=== PATIENT | male | born 1955 | race African-American/Black ===

== ENCOUNTER 2017-01-22 01:53 | Emergency (ER) | payer MEDICARE, OTHER ==
[~2017-01-22] VITALS: Ht 154.9 cm; Wt 70.3 kg
[~2017-01-22 01:53] MED LIST: ACETAMINOPHEN325 M1 PO; ALDACTONE25 MG PO; ALLOPURINOL100 MG PO; ASPIRIN EC81 MG PO; CARVEDILOL3.125 MG PO; CLARITIN10 M2 PO; COLACE100 MG PO; CYCLOBENZAPRINE10 MG PO; DAILY VITE1 EACH PO; DUCODYL5 MG PO; FUROSEMIDE20 MG PO; FUROSEMIDE40 MG PO; GAS RELIEF80 MG PO; GLIMEPIRIDE1 MG PO; IBUPROFEN600 MG PO; LACRI-LUBE S.O3.5 GM OP; LANOXIN125 MCG PO; LEVOXYL100 MCG PO; LOVASTATIN20 MG PO; LUBRIFRESH PM3.5 GM OPTH; METFORMIN HCL1000 MG PO; MILK OF MA400 MG/5 M PO; NASONEX17 GM NS; NIASPAN500 MG PO; NORCO 5-325 TA1 EACH PO; OMEPRAZOLE20 MG PO; PATADAY2.5 ML OPTH; REGULOID426 GM PO; STOOL SOFTENER100 M1 PO; TRAMADOL HCL50 MG PO; VITAMIN A10000 UNIT PO; VITAMIN D1000 UNI1 PO; VITAMIN D5000 UNIT PO; ZESTRIL5 MG PO
[2017-01-22] MEDS ORDERED: LASIX40 MG PO (02:07)
[2017-01-22] MEDS ORDERED: PRINIVIL10 MG PO (02:07)
[2017-01-22] MEDS ORDERED: MIRALAX17 GM PO (02:08)
[2017-01-22] MEDS ORDERED: [UNRECOGNIZED DRUG - OTHER] TOP (10:43)
[2017-01-22] MEDS ORDERED: LUBRIFRESH PM3.5 GM OPTH (10:47)
== END 2017-01-22 02:24 | disposition home or self-care (01) ==
LOC: ED 01:53
DX: S00.83XA Contusion of other part of head, initial encounter (principal); E11.9 Type 2 diabetes mellitus without complications; I11.0 Hypertensive heart disease with heart failure; I50.9 Heart failure, unspecified; E78.5 Hyperlipidemia, unspecified; W01.198A Fall on same level from slipping, tripping and stumbling with subsequent striking against other object, initial encounter; Z95.0 Presence of cardiac pacemaker; Z88.8 Allergy status to other drugs, medicaments and biological substances; Z79.899 Other long term (current) drug therapy; Z79.82 Long term (current) use of aspirin; Z79.84 Long term (current) use of oral hypoglycemic drugs
CPT/HCPCS: 99282

== ENCOUNTER 2017-01-22 09:41 | Emergency (ER) | payer MEDICARE, OTHER ==
[~2017-01-22] VITALS: Ht 154.9 cm; Wt 70.3 kg
[~2017-01-22 09:41] MED LIST changes: +LASIX40 MG PO; +MIRALAX17 GM PO; +PRINIVIL10 MG PO
[2017-01-22] MEDS ORDERED: [UNRECOGNIZED DRUG - OTHER] TOP (10:43)
[2017-01-22] MEDS ORDERED: LUBRIFRESH PM3.5 GM OPTH (10:47)
--- NOTE | 2017-01-22 18:00 | EKG ---
[facility] [address] [place] [address] Signed Normal sinus rhythm Left anterior fascicular block Nonspecific T wave abnormality Abnormal ECG No previous ECGs available Confirmed by SUSAN SHAH MD ([id number]) on 01/22/2017 6:00:13 PM Electronically Signed By: SUSAN SHAH MD 01/22/17 1800 PATIENT NAME: SHAWN MAIN KAITY Electrocardiogram DATE OF : 59 PHYSICIAN: SUSAN SHAH MD REPORT #: [id number] REPORT IS CONFIDENTIAL AND NOT TO BE RELEASED WITHOUT AUTHORIZATION
== END 2017-01-22 11:27 | disposition home or self-care (01) ==
LOC: ED 09:41
DX: R07.89 Other chest pain (principal); E11.9 Type 2 diabetes mellitus without complications; I11.0 Hypertensive heart disease with heart failure; I50.9 Heart failure, unspecified; E66.9 Obesity, unspecified; F43.10 Post-traumatic stress disorder, unspecified; E03.9 Hypothyroidism, unspecified; Z95.0 Presence of cardiac pacemaker; Z88.8 Allergy status to other drugs, medicaments and biological substances; Z79.899 Other long term (current) drug therapy; Z79.82 Long term (current) use of aspirin; Z79.84 Long term (current) use of oral hypoglycemic drugs
CPT/HCPCS: 80053; 84484; 85025; 93005; 93010; 99284

== ENCOUNTER 2017-01-26 14:47 | Emergency (ER) | payer MEDICARE, OTHER ==
[~2017-01-26] VITALS: Ht 154.9 cm; Wt 70.3 kg
[~2017-01-26 14:47] MED LIST changes: +[UNRECOGNIZED DRUG - OTHER] TOP
== END 2017-01-26 15:30 | disposition home or self-care (01) ==
LOC: ED 14:47
DX: S50.01XA Contusion of right elbow, initial encounter (principal); E11.40 Type 2 diabetes mellitus with diabetic neuropathy, unspecified; Q90.9 Down syndrome, unspecified; I11.0 Hypertensive heart disease with heart failure; I50.9 Heart failure, unspecified; E78.5 Hyperlipidemia, unspecified; H54.0 Blindness, both eyes; D56.9 Thalassemia, unspecified; Z88.8 Allergy status to other drugs, medicaments and biological substances; Z79.899 Other long term (current) drug therapy; Z79.82 Long term (current) use of aspirin; Z79.84 Long term (current) use of oral hypoglycemic drugs; W19.XXXA Unspecified fall, initial encounter
CPT/HCPCS: 73080; 73090; 99283

== ENCOUNTER 2017-01-29 10:43 | Emergency (ER) | payer MEDICARE, OTHER ==
[~2017-01-29] VITALS: Ht 154.9 cm; Wt 70.3 kg
== END 2017-01-29 12:35 | disposition home or self-care (01) ==
LOC: ED 10:43
DX: R60.9 Edema, unspecified (principal); I11.0 Hypertensive heart disease with heart failure; I50.9 Heart failure, unspecified; E78.5 Hyperlipidemia, unspecified; E66.9 Obesity, unspecified; E03.9 Hypothyroidism, unspecified; E11.40 Type 2 diabetes mellitus with diabetic neuropathy, unspecified; Z88.8 Allergy status to other drugs, medicaments and biological substances; Z79.899 Other long term (current) drug therapy; Z79.82 Long term (current) use of aspirin; Z79.84 Long term (current) use of oral hypoglycemic drugs
CPT/HCPCS: 73060; 85025; 93971; 99284

== ENCOUNTER 2017-08-20 19:47 | Emergency (ER) | payer MEDICARE, OTHER ==
[~2017-08-20] VITALS: Ht 154.9 cm; Wt 70.3 kg
--- OUTSIDE RECORDS SUMMARY | 2017-08-20 20:04 | XMS | Clinical Summary ---
Demographics + + + | Address | [address] [place] [address] [place] | | | [place] [address] | + + + | Home Phone | | + + + | Preferred Language | Unknown | + + + | Marital Status | Single | + + + | Zoroastrian Affiliation | NON | + + + | Race | Black or | + + + | Ethnic Group | Not or | + + + Author + + + | Author | [facility] | + + + | Organization | [facility] | + + + | Address | Unknown | + + + | Phone | Unavailable | + + + Support + + + + + | Name | Relationship | Address | Phone | + + + + + | JEREMIASEASTERN | ECON | [address] | | | [place] | | [place] | | | | | [address] | | + + + + + Care Team Providers + +------+ + | Care Oil Filters Inspector Name | Role | Phone | + +------+ + | Moon Alarcon DO | PP | | + +------+ + Source Comments SON is fully live on both EpicCare Ambulatory and EpicCare InPatient.[facility] Allergies + + + + + + | Active Allergy | Reactions | Severity | Noted | Comments | | | | | Date | | + + + + + + | Carbamazepine | Unknown | | 11/22/19 | | | | | | 16 | | + + + + + + Current Medications + + + +---------+------+------+-------+ | Prescription | Sig. | Disp. | Refills | Star | End | Statu | | | | | | t | Date | s | | | | | | Date | | | + + + +---------+------+------+-------+ | CALCIUM + D OR | two tablets twice | | | | | Activ | | | daily | | | | | e | + + + +---------+------+------+-------+ | LEVOTHYROXINE 200 | one tab daily | | | | | Activ | | MCG TAB | | | | | | e | + + + +---------+------+------+-------+ | METFORMIN 1,000 MG | take 1 tablet | | | | | Activ | | TAB | (1,000mg) by oral | | | | | e | | | route 2 times per | | | | | | | | day with morning and | | | | | | | | evening meals | | | | | | + + + +---------+------+------+-------+ | ASPIRIN 81 MG TAB | one tab daily | | | | | Activ | | | | | | | | e | + + + +---------+------+------+-------+ | allopurinol 100 mg | | | | 04/2 | | Activ | | oral tablet | | | | 8/20 | | e | | | | | | 16 | | | + + + +---------+------+------+-------+ | carvedilol 3.125 | | | | 04/2 | | Activ | | mg oral tablet | | | | 8/20 | | e | | | | | | 16 | | | + + + +---------+------+------+-------+ | furosemide 40 mg | | | | 04/2 | | Activ | | oral tablet | | | | 8/20 | | e | | | | | | 16 | | | + + + +---------+------+------+-------+ | lisinopril 5 mg | | | | 04/2 | | Activ | | oral tablet | | | | 8/20 | | e | | | | | | 16 | | | + + + +---------+------+------+-------+ | lovastatin 20 mg | | | | 04/2 | | Activ | | oral tablet | | | | 8/20 | | e | | | | | | 16 | | | + + + +---------+------+------+-------+ | omeprazole 20 mg | | | | 04/2 | | Activ | | oral capsule,delayed | | | | 8/20 | | e | | release(DR/EC) | | | | 16 | | | + + + +---------+------+------+-------+ | spironolactone 25 | | | | 04/2 | | Activ | | mg oral tablet | | | | 8/20 | | e | | | | | | 16 | | | + + + +---------+------+------+-------+ | white | twice daily as | | | | | Activ | | petrolatum-mineral | needed. | | | | | e | | oil 83-15 % | | | | | | | | ophthalmic ointment | | | | | | | + + + +---------+------+------+-------+ | olopatadine | Instill 1 drop into | 2.5 mL | 6 | 01/0 | | Activ | | (PATADAY) 0.2 % | both eyes once | | | 5/20 | | e | | ophthalmic (eye) | daily. Indications: | | | 18 | | | | dropsIndications: | Allergic | | | | | | | Allergic | Conjunctivitis | | | | | | | Conjunctivitis | | | | | | | + + + +---------+------+------+-------+ Active Problems + + + | Problem | Noted Date | + + + | Corneal scar | 11/22/2015 | + + + | Atrioventricular canal type ventricular septal defect | 09/10/2006 | + + + | Congenital anomaly of heart | 09/10/2006 | + + + Encounters +--------+--------+ + + + | Date | Type | Specialty | Care Team | Description | +--------+--------+ + + + | 07/04/ | Refill | | Jefe Suarez, | Refill Request | | 2018 | | | MD | | +--------+--------+ + + + from Last 3 Months Social History + +-------+ +--------+------+ | Tobacco Use | Types | Packs/Day | Years | Date | | | | | Used | | + +-------+ +--------+------+ | Never Smoker | | | | | + +-------+ +--------+------+ + + + | Sex Assigned at | Date Recorded | | | | + + + | Not on file | | + + + Last Filed Vital Signs + + + + | Vital Sign | Reading | Time Taken | + + + + | Blood Pressure | 106/76 | 09/09/2006 12:59 PM PDT | + + + + | Pulse | 93 | 09/09/2006 12:59 PM PDT | + + + + | Temperature | - | - | + + + + | Respiratory Rate | - | - | + + + + | Oxygen Saturation | 96% | 09/09/2006 12:59 PM PDT | + + + + | Inhaled Oxygen | - | - | | Concentration | | | + + + + | Weight | 75.3 kg (166 lb) | 09/09/2006 12:59 PM PDT | + + + + | Height | 152.4 cm (5') | 09/09/2006 12:59 PM PDT | + + + + | Body Mass Index | 32.42 | 09/09/2006 12:59 PM PDT | + + + + Plan of Treatment + + + + + | Health Maintenance | Due Date | Last Done | Comments | + + + + + | INFLUENZA VACCINE | | | | | (FLU SHOT) | 7 | | | + + + + + Results Not on filefrom Last 3 Months"
--- OUTSIDE RECORDS SUMMARY | 2017-08-20 20:05 | XMS | Encounter Summary ---
Demographics + + + | Address | [address] [place] [address] [place] | | | [place] [address] | + + + | Home Phone | | + + + | Preferred Language | Unknown | + + + | Marital Status | Single | + + + | Uatsdin Affiliation | NON | + + + | Race | Black or | + + + | Ethnic Group | Not or | + + + Author + + + | Author | [facility] | + + + | Organization | [facility] | + + + | Address | Unknown | + + + | Phone | Unavailable | + + + Support + + + + + | Name | Relationship | Address | Phone | + + + + + | JAAN MCDOWELL | ECON | [address] | | | [place] | | [place] | | | | | [address] | | + + + + + Care Team Providers + +------+ + | Care Talent Acquisition Project Manager Name | Role | Phone | + +------+ + | Moon Alarcon DO | PCP | | + +------+ + Reason for Visit + + + | Reason | Comments | + + + | Refill Request | | + + + Encounter Details +--------+--------+ + + + | Date | Type | Department | Care Team | Description | +--------+--------+ + + + | 07/04/ | Refill | [facility] | Jefe Suarez, | Refill Request | | 2017 | | Dema/Ophthalmol | [address] | | | | | ogy at [facility] [address] | [address] | | | | | [place] Mailcode: | [place], [place] | | | | | [address] | [address] | | | | | Health and Healing, | [phone] | | | | | [address] Floor | | | | | | [place], [place] | | | | | | [address] | | | | | | [phone] | | | +--------+--------+ + + + Social History + +-------+ +--------+------+ | Tobacco [...] on file | | + + + as of this encounter Plan of Treatment Not on fileas of this encounter Visit Diagnoses Not on filein this encounter"
--- OUTSIDE RECORDS SUMMARY | 2017-08-20 20:05 | XMS | Encounter Summary ---
Demographics + + + | Address | [address] [place] [address] [place] | | | [place] [address] | + + + | Home Phone | | + + + | Preferred Language | Unknown | + + + | Marital Status | Single | + + + | Roman Catholic Affiliation | NON | + + + | Race | Black or | + + + | Ethnic Group | Not or | + + + Author + + + | Author | [facility] | + + + | Organization | [facility] | + + + | Address | Unknown | + + + | Phone | Unavailable | + + + Support + + + + + | Name | Relationship | Address | Phone | + + + + + | JANA MCDOWELL | ECON | [address] | | | [place] | | [place] | | | | | [address] | | + + + + + Care Team Providers + +------+ + | Care Record Producer Name | Role | Phone | + [...] Refill Request | | 2017 | | Retsof/Ophthalmol | [address] | | | | | ogy at [facility] [address] | [address] | | | | | [place] Mailcode: | [place], [place] | | | | | [address] | [address] | | | | | Health and Healing, | [phone] | | | | | [address] Floor | | | | | | [place], [place] | | | | | | [address] | | | | | | [phone] | | | +--------+--------+ + + + [...]
--- OUTSIDE RECORDS SUMMARY | 2017-08-20 20:05 | XMS | Clinical Summary ---
Demographics + + + | Address | [address] [place] [address] [place] | | | [place] [address] | + + + | Home Phone | | + + + | Preferred Language | Unknown | + + + | Marital Status | Single | + + + | Latter-Day Affiliation | NON | + + + [...] + + | JEREMIASEASTERN | ECON | [address] | | | [place] | | [place] | | | | | [address] | | + + + + + Care Team Providers + +------+ + | Care Medical Billing Representative Name | Role | Phone | + +------+ + | Moon Alarcon DO | PP | | + +------+ + Source Comments SON is fully live on both EpicCare Ambulatory and EpicCare InPatient.[facility] Allergies + + + + + + [...]
[2017-08-20] MEDS ORDERED: ZITHROMAX250 MG PO (21:01)
== END 2017-08-20 21:07 | disposition home or self-care (01) ==
LOC: ED 19:47
DX: R05 Cough (principal); R91.8 Other nonspecific abnormal finding of lung field; E11.40 Type 2 diabetes mellitus with diabetic neuropathy, unspecified; I11.0 Hypertensive heart disease with heart failure; I50.9 Heart failure, unspecified; E78.5 Hyperlipidemia, unspecified; E66.9 Obesity, unspecified; F43.10 Post-traumatic stress disorder, unspecified; E03.9 Hypothyroidism, unspecified; Z88.8 Allergy status to other drugs, medicaments and biological substances; Z79.899 Other long term (current) drug therapy; Z79.82 Long term (current) use of aspirin; Z79.84 Long term (current) use of oral hypoglycemic drugs
CPT/HCPCS: 71046; 99283

== ENCOUNTER 2018-03-30 07:21 | Emergency (ER) | payer MEDICARE, OTHER ==
[~2018-03-30] VITALS: Ht 154.9 cm; Wt 70.3 kg
--- OUTSIDE RECORDS SUMMARY | ~2018-03-30 | XMS | Clinical Summary ---
Demographics + + + | Address | [address] [place] [address] [place] | | | [place] [address] | + + + | Home Phone | | + + + | Preferred Language | Unknown | + + + | Marital Status | Single | + + + | Restorationist Affiliation | NON | + + + [...] + + | JEREMIASEASTERN | ECON | [address] | | | [place] | | [place] | | | | | [address] | | + + + + + Care Team Providers + +------+ + | Care Machine Cloth Measurer Name | Role | Phone | + +------+ + | Moon Alarcon DO | PP | | + +------+ + Source Comments SON is fully live on both EpicCare Ambulatory and EpicCare InPatient.[facility] Allergies + + + + + + [...] | | | | (FLU SHOT) | 8 | | | + + [...] | | | + +--------+ +--------+-------+---------+ | POLICE RESERVES COMMANDER MEDICAID | POLICE RESERVES COMMANDER | xxxxxxxx | Medica | | | [...] [place] | | | al/Fam | | [phone] | [phone] | [place] | | | [place] | | | [phone] | [phone] | + +--------+ +--------+ + +"
--- OUTSIDE RECORDS SUMMARY | ~2018-03-30 | XMS | Clinical Summary ---
Demographics + + + | Address | [address] [place] [address] [place] | | | [place] [address] | + + + | Home Phone | | + + + | Preferred Language | Unknown | + + + | Marital Status | Single | + + + | Taoism Affiliation | NON | + + + [...] + + | JEREMIASEASTERN | ECON | [address] | | | [place] | | [place] | | | | | [address] | | + + + + + Care Team Providers + +------+ + | Care Front End Alignment Specialist Name | Role | Phone | + +------+ + | Moon Alarcon DO | PP | | + +------+ + Source Comments SON is fully live on both EpicCare Ambulatory and EpicCare InPatient.[facility] Allergies + + + + + [...] | | | + +--------+ +--------+-------+---------+ | AUDIO VIDEO TECH MEDICAID | AUDIO VIDEO TECH | xxxxxxxx | Medica | | | [...] | [place] | | | [phone] | [phone] | + +--------+ +--------+ + +"
--- OUTSIDE RECORDS SUMMARY | ~2018-03-30 | XMS | Clinical Summary ---
Demographics + + + | Address | [address] | | | [place] [address] | + + + | Home Phone | | + + + | Preferred Language | Unknown | + + + | Marital Status | Single | + + + | Christian Affiliation | Unknown | + + + | Race | Unknown | + + + | Ethnic Group | Unknown | + + + Author + + + | Author | [facility] [employer] | + + + | Organization | [facility] [employer] | + + + | Address [...] Team Providers + +------+ + | Care Plan Consultant Name | Role | Phone | + [...] history of Down syndrome, resident of a mcc, history of | | congenital heart disease, [...] | | | | | (#1) | 8 | | | + [...] | [place] - PREMIERCARE | MA-FAM | [id number] | Medica | | | | FAMILY | LAZ | | re | | | | | CARE | | | | | + +--------+ +--------+-------+ + | MEDICAID | [facility] | [id number] | | | [address] | | | N | | | | [place], [place] | | | [place] | | | | [address] | | | SHEET ROCK TAPER | | | | | + +--------+ [...] Self | [birth year] | Home: | [address] | | | al/Fam | | [address] | [phone] | [place] [address] | | | [place] | | | [phone] | | + +--------+ +--------+ + +"
--- OUTSIDE RECORDS SUMMARY | ~2018-03-30 | XMS | Clinical Summary ---
Demographics + + + | Address | [address] | | | [place] [address] | + + + | Home Phone | | + + + | Preferred Language | Unknown | + + + | Marital Status | Single | + + + | Zoroastrian Affiliation | Unknown | + + + | Race | Unknown | + + + | Ethnic Group | Unknown | + + + Author + + + | Author | [facility] [employer] | + + + | Organization | [facility] [employer] | + + + | Address [...] Providers + +------+ + | Care Director Learning Name | Role | Phone | + [...] history of Down syndrome, resident of a snf, history of | | congenital heart disease, [...] | MA - PREMIERCARE | MA-FAM | [id number] | Medica | | | | FAMILY | LAZ | | re | | | | | CARE | | | | | + +--------+ +--------+-------+ + | MEDICAID | [facility] | [id number] | | | [address] | | | N | | | | [place], [place] | | | [place] | | | | [address] | | | SERVOMECHANISM ASSEMBLER | | | | | + +--------+ [...] Self | [birth year] | Home: | [address] | | | al/Fam | | [address] | [phone] | [place] [address] | | | [place] | | | [phone] | | + +--------+ +--------+ + +"
[~2018-03-30 07:21] MED LIST changes: +ZITHROMAX250 MG PO
--- OUTSIDE RECORDS SUMMARY | 2018-03-30 07:26 | XMS ---
PreManage Notification: SHAWN MAIN Security Superintendent Automotive Events No recent Security Events currently on file CRITERIA MET - POL CARE PROVIDERS JESSICA VIVAS Primary Care 12/28/2010-Current PHONE: Unknown Other Current PHONE: Unknown Sukh has no Care Guidelines for this patient. Samantha VISIT COUNT (12 MO.) 2 JOSSIE Sinclair TOTAL 2 NOTE: Visits indicate total known visits. ED/UCC VISIT TRACKING (12 MO.) 03/30/2018 07:22 JOSSIE Cro[place] TYPE: Emergency COMPLAINT: - BREATHING TROUBLE 08/20/2017 19:47 [place]E [place] TYPE: Emergency COMPLAINT: - SOB DIAGNOSES: - Post-traumatic stress disorder, unspecified - rn long term care (current) use of aspirin - Hypertensive heart disease with heart failure - Type 2 diabetes mellitus with diabetic neuropathy, unspecified - Allergy status to other drugs, medicaments and biological substances status - Shortness of breath - Hypothyroidism, unspecified - Hyperlipidemia, unspecified - Other retirement (current) drug therapy - Heart failure, unspecified - Other nonspecific abnormal finding of lung field - SNF (CURRENT) USE OF ORAL HYPOGLYCEMIC DRUGS - Obesity, unspecified - Cough INPATIENT VISIT TRACKING (12 MO.) No inpatient visits to display in this time frame [email or web address]
--- NOTE | 2018-03-30 18:25 | EKG ---
[facility] [address] [facility] [place] [address] Signed Normal sinus rhythm Left axis deviation Nonspecific T wave abnormality Abnormal ECG Confirmed by DALE STREETER MD ([id number]) on 03/30/2018 6:25:33 PM Electronically Signed By: DALE STREETER MD 03/30/18 1825 PATIENT NAME: SHAWN MAIN KAITY Electrocardiogram DATE OF : 59 PHYSICIAN: DALE STREETER MD REPORT #: [id number] REPORT IS CONFIDENTIAL AND NOT TO BE RELEASED WITHOUT AUTHORIZATION
== END 2018-03-30 09:36 | disposition home or self-care (01) ==
LOC: ED 07:21
DX: R06.02 Shortness of breath (principal); E11.40 Type 2 diabetes mellitus with diabetic neuropathy, unspecified; I10 Essential (primary) hypertension; E66.9 Obesity, unspecified; Z88.8 Allergy status to other drugs, medicaments and biological substances; Z79.899 Other long term (current) drug therapy; Z79.82 Long term (current) use of aspirin; Z79.84 Long term (current) use of oral hypoglycemic drugs
CPT/HCPCS: 36415; 71045; 80053; 83880; 84484; 85025; 93005; 93010; 94640; 99285

== ENCOUNTER 2018-06-28 16:30 | Emergency (ER) | payer MEDICARE, OTHER ==
[~2018-06-28] VITALS: Ht 154.9 cm; Wt 71.3 kg
[~2018-06-28 16:30] MED LIST changes: +ALBUTEROL2.5 MG/3 M INH; +LEVOFLOXACIN500 MG PO; +LISINOPRIL5 MG PO; +PREDNISONE20 MG PO; -PRINIVIL10 MG PO
--- OUTSIDE RECORDS SUMMARY | 2018-06-28 16:36 | XMS ---
PreManage Notification: SHAWN MAIN Security Layout Inspector Events No recent Security Events currently on file CRITERIA MET - [facility] - 2 Visits in 30 Days CARE PROVIDERS ANGY BIRD Nurse Practitioner: 06/08/2018-Current PHONE: [phone] JESSICA VIVAS Primary Care 12/28/2010-Current PHONE: Unknown Other Current PHONE: Unknown Sukh has no Care Guidelines for this patient. E.D. VISIT COUNT (12 MO.) 5 JOSSIE Sinclair TOTAL 5 NOTE: Visits indicate total known visits. ED/UCC VISIT TRACKING (12 MO.) 06/28/2018 16:31 J[facility]SIE [facility] [place] TYPE: Emergency COMPLAINT: - LETHARGIC/BILAT LE SWELLING 06/17/2018 16:22 [facility]SIE [place] TYPE: Emergency COMPLAINT: - VAUGHN LUZ DIAGNOSES: - Weakness - Post-traumatic stress disorder, unspecified - Type 2 diabetes mellitus with diabetic neuropathy, unspecified - Heart failure, unspecified - Hyperlipidemia, unspecified - Hypertensive heart disease with heart failure - Wheezing - halfway (current) use of oral hypoglycemic drugs - halfway (current) use of aspirin - Bronchitis, not specified as acute or chronic - Allergy status to other drugs, medicaments and biological substances status - Obesity, unspecified - Other bioinformatics specialist (current) drug therapy - Shortness of breath 06/08/2018 09:07 J[facility]SIE [place] TYPE: Emergency COMPLAINT: - OXYGEN PROBLEMS 03/30/2018 07:22 JOSSIE [place] TYPE: Emergency COMPLAINT: - BREATHING TROUBLE DIAGNOSES: - Essential (primary) hypertension - Other usp (current) drug therapy - court liaison (current) use of oral hypoglycemic drugs - Allergy status to other drugs, medicaments and biological substances status - Type 2 diabetes mellitus with diabetic neuropathy, unspecified - halfway (current) use of aspirin - Obesity, unspecified - Shortness of breath 08/20/2017 19:47 JOSSIE [place] TYPE: Emergency COMPLAINT: - SOB DIAGNOSES: - Post-traumatic stress disorder, unspecified - halfway (current) use of aspirin - Hypertensive heart disease with heart failure - Type 2 diabetes mellitus with diabetic neuropathy, unspecified - Allergy status to other drugs, medicaments and biological substances status - court liaison (current) use of oral hypoglycemic drugs - Shortness of breath - Hypothyroidism, unspecified - Hyperlipidemia, unspecified - Other bioinformatics specialist (current) drug therapy - Heart failure, unspecified - Other nonspecific abnormal finding of lung field - TERMITE TREATER (CURRENT) USE OF ORAL HYPOGLYCEMIC DRUGS - Obesity, unspecified - Cough INPATIENT VISIT TRACKING (12 MO.) 06/08/2018 09:08 JOSSIE Crowe [place] TYPE: Medical Surgical COMPLAINT: - HYPOXIA RESPITORY FAILURE DIAGNOSES: - Gastro-esophageal reflux disease without esophagitis - Unspecified cataract - Hyperlipidemia, unspecified - Hypertensive heart disease with heart failure - court liaison (current) use of aspirin - Epilepsy, unspecified, not intractable, without status epilepticus - Obesity, unspecified - Heart failure, unspecified - Gout, unspecified - Type 2 diabetes mellitus with diabetic neuropathy, unspecified - Thalassemia, unspecified - Congenital mitral insufficiency - Unspecified visual loss - Post-traumatic stress disorder, unspecified - court liaison (current) use of oral hypoglycemic drugs - Body mass index (BMI) 29.0-29.9, adult - Severe intellectual disabilities - Other usp (current) drug therapy - Vitamin D deficiency, unspecified - halfway (current) use of antibiotics - Constipation, unspecified - Hypothyroidism, unspecified - Down syndrome, unspecified - Chronic respiratory failure with hypoxia - Shortness of breath - Pneumonia, unspecified organism [email or web address]
== END 2018-06-28 20:06 | disposition home or self-care (01) ==
LOC: ED 16:30
DX: M79.675 Pain in left toe(s) (principal); I11.0 Hypertensive heart disease with heart failure; I50.9 Heart failure, unspecified; E78.5 Hyperlipidemia, unspecified; E11.40 Type 2 diabetes mellitus with diabetic neuropathy, unspecified; E66.9 Obesity, unspecified; F43.10 Post-traumatic stress disorder, unspecified; Z88.8 Allergy status to other drugs, medicaments and biological substances; Z79.899 Other long term (current) drug therapy; Z79.52 Long term (current) use of systemic steroids; Z79.4 Long term (current) use of insulin; Z79.82 Long term (current) use of aspirin
CPT/HCPCS: 73630; 81001; 99283

== ENCOUNTER 2018-10-24 11:58 | Inpatient (IN) | payer MEDICARE, OTHER ==
[~2018-10-24] VITALS: Ht 154.9 cm; Wt 70.8 kg
--- OUTSIDE RECORDS SUMMARY | ~2018-10-24 | XMS | Clinical Summary ---
Demographics + + + | Address | [address] [place] [address] [place] | | | [place] [address] | + + + | Home Phone | | + + + | Preferred Language | Unknown | + + + | Marital Status | Single | + + + | Nondenominational Affiliation | NON | + + + [...] + + | JEREMIASEASTERN | ECON | [address] | | | [place] | | [place] | | | | | [address] | | + + + + + Care Team Providers + +------+ + | Care Emblem Cutter Name | Role | Phone | + +------+ + | Moon Alarcon DO | PP | | + +------+ + Source Comments SON is fully live on both EpicCare Ambulatory and EpicCare InPatient.[facility] Allergies + + + + [...] into | 2.5 mL | 6 | 04/2 | | Activ | | (PATADAY) 0.2 [...] heart | 09/10/2006 | + + + Social History + +-------+ [...] | + + + + + | Influenza (Flu) | | | | | vaccination (#1) | 8 | | | + + + + + Results Not on filefrom Last 3 Months Insurance + +--------+ +--------+-------+---------+ | Payer | Benefi | Subscriber | Type | Phone | Address | | | t Plan | ID | | | | | | / | | | | | | | Group | | | | | + +--------+ +--------+-------+---------+ | INBOUND CUSTOMER SERVICE REPRESENTATIVE MEDICAID | INBOUND CUSTOMER SERVICE REPRESENTATIVE | xxxxxxxx | Medica | | | | | [place] | | id | | | | | [place] | | | | | + +--------+ +--------+-------+---------+ + +--------+ +--------+ + + | Guarantor Name | Accoun | Relation to | Date | Phone | Billing Address | | | t Type | Patient | of | | | | | | | | | | + +--------+ +--------+ + + | SHAWN MAIN | Person | Self | [birth year] | Home: | [address] | | | al/Fam | | 1955 | [phone] [place] | | | [place] | | | [phone] | [phone] | + +--------+ +--------+ + +"
--- OUTSIDE RECORDS SUMMARY | ~2018-10-24 | XMS | Clinical Summary ---
Demographics + + + | Address | [address] | | | [place] [address] | + + + | Home Phone | | + + + | Preferred Language | Unknown | + + + | Marital Status | Single | + + + | Druze Affiliation | Unknown | + + + | Race | Unknown | + + + | Ethnic Group | Unknown | + + + Author + + + | Author | [facility] [employer] [facility] | + + + | Organization | [facility] [employer] [facility] | + + + | Address | Unknown | + + + | Phone | Unavailable | + + + Support + + +---------+ + | Name | Relationship | Address | Phone | + + +---------+ + | Cesar Gonzalez | ECON | Unknown | | + + +---------+ + | Detailed,Message | ECON | Unknown | | + + +---------+ + | AttilaSigrid gonzalez | ECON | Unknown | | + + +---------+ + | Tayler Harper | ECON | Unknown | | + + +---------+ + Care Team Providers + +------+ + | Care Vamp Presser Name | Role | Phone | + +------+ + | Sharonda Green | PP | | + +------+ + Allergies + + + + + + | Active Allergy | Reactions | Severity | Noted | Comments | | | | | Date | | + + + + + + | Carbamazepine | Hives | High | 11/11/19 | | | | | | 14 | | + + + + + + Current Medications + + +-------+---------+------+------+-------+ | Prescription | Sig. | Disp. | Refills | Star | End | Statu | | | | | | t | Date | s | | | | | | Date | | | + + +-------+---------+------+------+-------+ | acetaminophen | Take 325 mg by mouth | | | | | Activ | | (TYLENOL) 325 MG | every 4 (four) | | | | | e | | tablet | hours as needed. | | | | | | + + +-------+---------+------+------+-------+ | allopurinol | Take 100 mg by mouth | | | | | Activ | | (ZYLOPRIM) 100 MG | 3 (three) times | | | | | e | | tablet | daily. | | | | | | + + +-------+---------+------+------+-------+ | aspirin 81 MG | Take 81 mg by mouth | | | | | Activ | | chewable tablet | daily with | | | | | e | | | breakfast. | | | | | | + + +-------+---------+------+------+-------+ | glucose blood test | 1 each by Other | | | | | Activ | | strip | route as needed. Use | | | | | e | | | as instructed | | | | | | + + +-------+---------+------+------+-------+ | carvedilol (COREG) | Take 3.125 mg by | | | | | Activ | | 3.125 MG tablet | mouth daily. | | | | | e | + + +-------+---------+------+------+-------+ | Calcium | Take 1 tablet by | | | | | Activ | | Carbonate-Vitamin D | mouth daily. | | | | | e | | 600-400 MG-UNIT per | | | | | | | | chew tablet | | | | | | | + + +-------+---------+------+------+-------+ | docusate sodium | Take 100 mg by mouth | | | | | Activ | | (COLACE) 100 MG | daily. | | | | | e | | capsule | | | | | | | + + +-------+---------+------+------+-------+ | furosemide (LASIX) | Take 40 mg by mouth | | | | | Activ | | 40 MG tablet | daily. | | | | | e | + + +-------+---------+------+------+-------+ | levothyroxine | Take 100 mcg by | | | | | Activ | | (SYNTHROID) 100 MCG | mouth every morning | | | | | e | | tablet | before breakfast. | | | | | | + + +-------+---------+------+------+-------+ | lisinopril | Take 5 mg by mouth | | | | | Activ | | (ZESTRIL) 5 MG | nightly. | | | | | e | | tablet | | | | | | | + + +-------+---------+------+------+-------+ | Loratadine 10 MG | Take 10 mg by mouth | | | | | Activ | | CAPS | daily. | | | | | e | + + +-------+---------+------+------+-------+ | lovastatin | Take 20 mg by mouth | | | | | Activ | | (MEVACOR) 20 MG | nightly. | | | | | e | | tablet | | | | | | | + + +-------+---------+------+------+-------+ | metFORMIN | Take 1,000 mg by | | | | | Activ | | (GLUCOPHAGE) 1000 MG | mouth 2 (two) times | | | | | e | | tablet | daily with meals. | | | | | | + + +-------+---------+------+------+-------+ | magnesium | Take 5 mLs by mouth | | | | | Activ | | hydroxide (MILK OF | daily as needed. | | | | | e | | MAGNESIA) 400 MG/5ML | | | | | | | | suspension | | | | | | | + + +-------+---------+------+------+-------+ | omeprazole | Take 20 mg by mouth | | | | | Activ | | (PRILOSEC) 20 MG | 2 (two) times daily. | | | | | e | | capsule | | | | | | | + + +-------+---------+------+------+-------+ | spironolactone | Take 25 mg by mouth | | | | | Activ | | (ALDACTONE) 25 MG | daily. | | | | | e | | tablet | | | | | | | + + +-------+---------+------+------+-------+ | Cholecalciferol | Take 1,000 Units by | | | | | Activ | | (VITAMIN D3) 1000 | mouth daily. | | | | | e | | UNITS CHEW | | | | | | | + + +-------+---------+------+------+-------+ | Olopatadine HCl | Apply 0.2 % to eye | | | | | Activ | | 0.2 % SOLN | daily. 1 gtt. Ea eye | | | | | e | | | daily | | | | | | + + +-------+---------+------+------+-------+ Active Problems + + + | Problem | Noted Date | + + + | Diabetes mellitus, type 2 | 11/10/2013 | + + + + + | Last Assessment & Plan: DM2, managed by PCP. 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 60yo BM, | | here with his caregiver (Parveen), it has been over 2 years since | | last seen, in the interim he's had no surgical procedures or | | hospitalizations. In summary, 60-year-old black male with | | history of Down syndrome, resident of a halfway, history of | | congenital heart disease, an ASD primum defect. As he is not a | | surgical candidate, testing has not been requested. Endocarditis | | prophylaxis would be reasonable. Medical therapy as directed | | toward symptoms of congestive heart failure and arrhythmias, | | which apparently is not reported at this time. There is no | | report of chest pain or shortness of breath, lightheadedness, or | | syncope. Labs are not available for me at this time, but it | | would be reasonable for him to have general chemistries once or | | twice yearly. With regards to the lovastatin, consider stopping | | this drug, it is not likely will benefit from this. Would | | continue his other medications. Also, Isac's POLST form states | | that he is a full resuscitation.SON, 11/08/2004: 2.6cm primum ASD | | with L->R shunt, moderate-severe MR with mild posterior | | prolapse, LV/RV NML, , moderate bi-Atrial enlargement.Last Echo, | | 12/08/2010: ASD, cardiac chamber dimensions NML, LVEF 60%, | | moderate MR, mild TR, est systolic PAP 30-35mmHg.ECG, 02/27/2016: | | sinus rhythm, 93bpm, severe LAD, increase in anterior forces, | | non-spec ST-T changes (suggestive of RVH). | + + + + + | Down's syndrome | 11/01/2013 | + + + + + | Last Assessment & Plan: Down's Syndrome, resident of a group | | home. I reviewed the POLST form, Isac is a full code, full | | resuscitation. | + + Social History + +-------+ +--------+------+ | Tobacco Use | Types | Packs/Day | Years | Date | | | | | Used | | + +-------+ +--------+------+ | Never Smoker | | | | | + +-------+ +--------+------+ + +---+---+---+ | Smokeless Tobacco: | | | | | Never Used | | | | + +---+---+---+ + + +---------+ + | Alcohol Use | Drinks/We | oz/Week | Comments | | | ek | | | + + +---------+ + | No | 0 | 0.0 | | | | Standard | | | | | drinks or | | | | | | | | | | equivalen | | | | | t | | | + + +---------+ + + + + | Sex Assigned at | Date Recorded | | | | + + + | Not on file | | + + + Last Filed Vital Signs + + + + | Vital Sign | Reading | Time Taken | + + + + | Blood Pressure | 86/60 | 02/27/2016 11:17 AM PDT | + + + + | Pulse | 88 | 02/27/2016 11:17 AM PDT | + + + + | Temperature | - | - | + + + + | Respiratory Rate | 17 | 02/27/2016 11:17 AM PDT | + + + + | Oxygen Saturation | 92% | 02/27/2016 11:17 AM PDT | + + + + | Inhaled Oxygen | - | - | | Concentration | | | + + + + | Weight | 61.7 kg (136 lb) | 02/27/2016 11:17 AM PDT | + + + + | Height | 152.4 cm (5') | 02/27/2016 11:17 AM PDT | + + + + | Body Mass Index | 26.56 | 02/27/2016 11:17 AM PDT | + + + + Plan of Treatment + + + + + | Health Maintenance | Due Date | Last Done | Comments | + + + + + | Diabetic Eye Exam | | | | | | 8 | | | + + + + + | Diabetic Foot Exam | | | | | | 8 | | | + + + + + | Hemoglobin A1c | | | | | | 8 | | | + + + + + | Microalbumin | | | | | Screening | 8 | | | + + + + + | Vaccine: | | | | | Dtap/Tdap/Td (1 - | 7 | | | | Tdap) | | | | + + + + + | Vaccine: | | | | | Pneumococcal 19-64 | 7 | | | | (PPSV23 only) Medium | | | | | Risk (1 of 1 - | | | | | PPSV23) | | | | + + + + + | Colon Cancer | | | | | Screening | 8 | | | | (Colonoscopy) | | | | + + + + + | Vaccine: Zoster (1 | | | | | of 2) | 8 | | | + + + + + | Vaccine: Influenza | | | | | (Season Ended) | 9 | | | + + + + + Results Not on filefrom Last 3 Months Insurance + +--------+ +--------+-------+ + | Payer | Benefi | Subscriber | Type | Phone | Address | | | t Plan | ID | | | | | | / | | | | | | | Group | | | | | + +--------+ +--------+-------+ + | [place] - PREMIERCARE | MA-FAM | [id number] | Medica | | | | FAMILY | LAZ | | re | | | | | CARE | | | | | + +--------+ +--------+-------+ + | MEDICAID | [facility] | [id number] | | | [address] | | | N | | | | [place], [place] | | | [place] | | | | [phone] | | | DIRECTOR COMMUNICATIONS | | | | | + +--------+ +--------+-------+ + + +--------+ +--------+ + + | Guarantor Name | Accoun | Relation to | Date | Phone | Billing Address | | | t Type | Patient | of | | | | | | | | | | + +--------+ +--------+ + + | ISAC SANFORD | Person | Self | [birth year] Home: | [address] | | | al/Fam | | [phone] | [phone] | [place] [address] | | | [place]z | | | [phone] | | + +--------+ +--------+ + +"
--- OUTSIDE RECORDS SUMMARY | ~2018-10-24 | XMS | Clinical Summary ---
Demographics + + + | Address | [address] [place] [address] [place] | | | [place] [address] | + + + | Home Phone [...] + + | JEREMI[employer]ASTERN | ECON | [address] | | | [place] | | [place] | | | | | [phone] | | + + + + + Care Team Providers + +------+ + | Care Car Salter Name | Role | Phone | + +------+ + | Moon Alarcon DO | PP | | + +------+ + Source Comments SON is fully live on both EpicCare Ambulatory and EpicCare InPatient.[facility] Allergies + + + + + [...] | | | + +--------+ +--------+-------+---------+ | BOTTOM TURNING LATHE TURNER MEDICAID | BOTTOM TURNING LATHE TURNER | xxxxxxxx | Medica | | | [...] | | al/Fam | | 1955 | [phone] | [place] | | | [place] | | | [phone] | + +--------+ +--------+ + +"
--- OUTSIDE RECORDS SUMMARY | ~2018-10-24 | XMS | Clinical Summary ---
Demographics + + + | Address | [address] | | | [place] [address] | + + + | Home Phone | | + + + | Preferred Language | Unknown | + + + | Marital Status | Single | + + + | Faith Affiliation | Unknown | + + + | Race | Unknown | + + + | Ethnic Group | Unknown | + + + Author + + + | Author | [facility] [employer] | + + + | Organization | [facility] [employer] | + + + | Address [...] Providers + +------+ + | Care Machine Molder Squeeze Name | Role | Phone | + [...] history of Down syndrome, resident of a detention, history of | | congenital heart disease, [...] | [place] - PREMIERCARE | MA-FAM | [id number] | Medica | | | | FAMILY | LAZ | | re | | | | | CARE | | | | | + +--------+ +--------+-------+ + | MEDICAID | [facility] | [id number] | | | [address] | | | N | | | | [place], [place] | | | [place] | | | | [phone] | | | VENDOR MANAGEMENT CONSULTANT | | | | | + +--------+ [...] Self | [birth year] | Home: | [address] | | | al/Fam | | [phone] | [phone] | [place] [address] | | | [place] | | | [phone] | | + +--------+ +--------+ + +"
--- OUTSIDE RECORDS SUMMARY | ~2018-10-24 | XMS | Clinical Summary ---
Demographics + + + | Address | [address] [place] [address] [place] | | | [place] [address] | + + + | Home Phone [...] + + | JEREM[employer]ASTERN | ECON | [address] | | | [place] | | [place] | | | | | [phone] | | + + + + + Care Team Providers + +------+ + | Care Sausage Cutter Name | Role | Phone | + +------+ + | Moon Alarcon DO | PP | | + +------+ + Source Comments SON is fully live on both EpicCare Ambulatory and EpicCare InPatient.[facility] Allergies + + + + + [...] | | | + +--------+ +--------+-------+---------+ | BOILER TUBE BLOWER MEDICAID | BOILER TUBE BLOWER | xxxxxxxx | Medica | | | [...] | | al/Fam | | 1955 | [phone] | [place] | | | [place] | | | [phone] | + +--------+ +--------+ + +"
--- OUTSIDE RECORDS SUMMARY | ~2018-10-24 | XMS | Clinical Summary ---
Demographics + + + | Address | [address] | | | [place] [address] | + + + | Home Phone | | + + + | Preferred Language | Unknown | + + + | Marital Status | Single | + + + | Presybeterian Affiliation | Unknown | + + + | Race | Unknown | + + + | Ethnic Group | Unknown | + + + Author + + + | Author | [facility] [employer] | + + + | Organization | [facility] [employer] | + + + | Address [...] Team Providers + +------+ + | Care Structured Cabling Technician Name | Role | Phone | [...] history of Down syndrome, resident of a senior care, history of | | congenital heart disease, [...] | [place] - PREMIERCARE | MA-FAM | [id number] | Medica | | | | FAMILY | LAZ | | re | | | | | CARE | | | | | + +--------+ +--------+-------+ + | MEDICAID | [facility] | [id number] | | | [address] | | | N | | | | [place], [place] | | | [place] | | | | [phone] | | | FILLING HAND | | | | | + +--------+ [...] Self | [birth year] | Home: | [address] | | | al/Fam | | [address] | [phone] | [place] [address] | | | [place] | | | [phone] | | + +--------+ +--------+ + +"
[2018-10-24] MEDS ORDERED: VITAMIN D1000 UNIT PO (16:52)
[2018-10-24] MEDS ORDERED: [UNRECOGNIZED DRUG - OTHER] OP (16:53)
[2018-10-24] MEDS ORDERED: ALBUTEROL2.5 MG/3 M INH (16:56)
[2018-10-30] MEDS ORDERED: TAMSULOSIN HCL0.4 MG PO (08:59)
[2018-10-30] MEDS ORDERED: CIPROFLOXACIN500 MG PO (08:59)
[2018-10-30] MEDS ORDERED: QUETIAPINE FUMA25 MG PO ×2 (09:01→10:45)
[2018-10-30] MEDS ORDERED: PREDNISONE20 MG PO (09:02)
[2018-10-30] MEDS ORDERED: CARVEDILOL3.125 MG PO (09:23)
== END 2018-10-30 11:00 | disposition home health service (06) | DRG 372 ==
LOC: ED 11:58 → MS 12:00
PROVIDERS: ADMIT Internal Medicine
DX: A02.0 Salmonella enteritis (principal); J96.11 Chronic respiratory failure with hypoxia; N17.9 Acute kidney failure, unspecified; Q23.3 Congenital mitral insufficiency; Q90.9 Down syndrome, unspecified; H54.7 Unspecified visual loss; I11.0 Hypertensive heart disease with heart failure; I50.9 Heart failure, unspecified; E11.40 Type 2 diabetes mellitus with diabetic neuropathy, unspecified; M10.9 Gout, unspecified; E78.5 Hyperlipidemia, unspecified; D56.9 Thalassemia, unspecified; E03.9 Hypothyroidism, unspecified; E55.9 Vitamin D deficiency, unspecified; R33.9 Retention of urine, unspecified; R00.0 Tachycardia, unspecified; D72.829 Elevated white blood cell count, unspecified; T38.0X5A Adverse effect of glucocorticoids and synthetic analogues, initial encounter; R45.1 Restlessness and agitation; K59.00 Constipation, unspecified; I25.10 Atherosclerotic heart disease of native coronary artery without angina pectoris; E87.6 Hypokalemia; R56.9 Unspecified convulsions; Z88.8 Allergy status to other drugs, medicaments and biological substances; Z99.81 Dependence on supplemental oxygen; Z79.84 Long term (current) use of oral hypoglycemic drugs; Z79.82 Long term (current) use of aspirin; Z79.899 Other long term (current) drug therapy
CPT/HCPCS: 36415; 36600; 51702; 71045; 74018; 80048; 80053; 81001; 82803; 83605; 83690; 83735; 83880; 85025; 87040; 87046; 87088; 87493; 94640; 94760; 94762; 94799; 97116; 97530; 99284-25; C9113; J0744; J1170; J1630; J1650; J1815; J1940; J2270; J2930; J7030; J7120; J7512

== ENCOUNTER 2018-12-25 10:32 | Inpatient (IN) | payer MEDICARE, OTHER ==
[~2018-12-25] VITALS: Ht 154.9 cm; Wt 73.0 kg
[~2018-12-25 10:32] MED LIST changes: -ASPIRIN EC81 MG PO; +ASPIRIN81 MG PO; +CEPHALEXIN500 MG PO; +CIPROFLOXACIN500 MG PO; +CLARITIN10 MG PO; -PATADAY2.5 ML OPTH; +PATADAY2.5 ML OU; +QUETIAPINE FUMA25 MG PO; +TAMSULOSIN HCL0.4 MG PO; +VITAMIN D1000 UNIT PO; +[UNRECOGNIZED DRUG - OTHER] OP
[2018-12-25] MEDS ORDERED: CARVEDILOL3.125 MG PO (10:45)
[2018-12-25] MEDS ORDERED: FUROSEMIDE40 MG PO (10:46)
[2018-12-25] MEDS ORDERED: LISINOPRIL5 MG PO (10:47)
[2018-12-25] MEDS ORDERED: SPIRONOLACTONE25 MG PO (10:51)
[2018-12-25] MEDS ORDERED: ADVANCED EYE R3.5 GM OPTH (10:52)
--- NOTE | 2018-12-25 13:00 | NUR ---
PT ARRIVES TO THIS UNIT FROM ER. PT FULL ASSIST TO MOVE FROM GURNEY TO BED, PT DOES NOT OPEN EYES OR RESPOND TO MOVEMENT. PT IV SITES INTACT, BOTH FLUSH EASILY. PT NOTED TO HAVE LOW TEMP OF 34.9 C. WARM BLANKETS APPLIED. PT CURRENT O2 SAT IS 100%, HOWEVER BREATHING PATTERN IS IRREGULAR. LOPEZ CATH IN PLACE. SKIN IS INTACT. CAREGIVER IS AT THE BEDSIDE.
--- NOTE | 2018-12-25 13:20 | NUR ---
CALLED RESP THERAPY TO BEDSIDE TO EVALUATE PT, ORDER OBTAINED FOR ABG LAB FROM .
--- NOTE | 2018-12-25 14:00 | NUR ---
AFTER REVIEW OF ABG VALUE, PT PLACED ON BIPAP PER BEDSIDE ORDER
--- NOTE | 2018-12-25 14:28 | NUR ---
NOREPI STARTED AT 6 MCG/MIN
--- NOTE | 2018-12-25 14:33 | NUR ---
NOREPI TITRATED UP TO 10 MCG/MIN
--- NOTE | 2018-12-25 14:35 | NUR ---
VERBAL BEDSIDE ORDER GIVEN FOR 1 L BOLUS OF NS.
--- NOTE | 2018-12-25 14:45 | NUR ---
NOREPI TITRATED TO 14 MCG/MIN
--- NOTE | 2018-12-25 15:00 | NUR ---
NOREPI TITRATED TO 10 MCG/MIN
--- NOTE | 2018-12-25 15:03 | NUR ---
NOREPI TITRATED TO 12 MCG/MIN FROM 14 MCG/MIN.
--- NOTE | 2018-12-25 15:18 | NUR ---
PT REMAINS NONRESPONSIVE TO ALL INTERVENTIONS, INCLUDING ABG DRAW. BP IS STABALIZED AT 95/51 (60) ON 12 MCG/MIN OF NOREPI.
--- NOTE | 2018-12-25 15:24 | NUR ---
CALLED TO UPDATE ON CURRENT ABG VALUES. ORDER GIVEN TO MAINTAIN CURRENT BIPAP SETTING FOR NOW, NO CHANGE TO ANY MEDICAITONS, STOP IV BOLUS.
--- NOTE | 2018-12-25 15:47 | NUR ---
NOREPI TITRATED TO 10 MCG/MIN PER BP OF 113/67 (78).
--- NOTE | 2018-12-25 15:57 | NUR ---
NOREPI DRIP TITRATED TO 6 MCG/MIN.
--- NOTE | 2018-12-25 16:13 | NUR ---
TITRATED NOREPI DRIP TO 2 MCG/MIN FOR BP OF 98/64 (72).
--- NOTE | 2018-12-25 16:47 | NUR ---
CALLED AT 1640 TO UPDATE ON PT STATUS OF BILAT FINE CRACKLES IN LOWER LOBES. ORDER GIVEN TO HOLD IV FLUIDS UNTIL MERRIM IS FINISHED INFUSING. NOREPI IS CURRENTLY RUNNING AT 2 MCG/MIN. BOTH IV SITES ARE INTACT, NO REDNESS OR SWELLING NOTED, FLUIDS INFUSING EASILY.
--- NOTE | 2018-12-25 17:01 | EKG ---
[facility] [address] [place] [address] Signed Normal sinus rhythm Left axis deviation Nonspecific T wave abnormality Abnormal ECG When compared with ECG of 08-JUN-2018 09:28, Vent. rate has decreased BY 38 BPM T wave inversion more evident in Anterior leads Confirmed by DALE STREETER MD ([id number]) on 12/25/2018 5:00:56 PM Electronically Signed By: DALE STREETER MD 12/25/18 1701 PATIENT NAME: SHAWN MAIN KAITY Electrocardiogram DATE OF : 59 PHYSICIAN: DALE STREETER MD REPORT #: [id number] REPORT IS CONFIDENTIAL AND NOT TO BE RELEASED WITHOUT AUTHORIZATION
--- NOTE | 2018-12-25 17:01 | NUR ---
TITRATED NOREPI DRIP TO 6 MCG/MIN FOR BP OF 77/54 (59).
--- NOTE | 2018-12-25 17:05 | NUR ---
PT NOTED TO BE MOVING HANDS ON HIS OWN OCCASIONALLY, DOES NOT OPEN EYES OR RESPOND TO TOUCH OR VOICE AT THIS TIME.
--- NOTE | 2018-12-25 17:45 | NUR ---
TITRATED NOREPI DRIP TO 4 MCG/MIN PER BP OF 100/67 (75).
[2018-12-25] MEDS ORDERED: [UNRECOGNIZED DRUG - OTHER] TOP (17:55)
[2018-12-25] MEDS ORDERED: ASPIRIN EC81 MG PO (17:58)
[2018-12-25] MEDS ORDERED: METFORMIN HCL1000 MG PO (17:58)
[2018-12-25] MEDS ORDERED: MILK OF MA400 MG/5 M PO (18:04)
--- NOTE | 2018-12-25 18:04 | NUR ---
MED REC COMPLETE
--- NOTE | 2018-12-25 20:03 | NUR ---
REPORT RECEIVED, PT RESTING IN BED, PT NONRESPONSIVE TO VERBAL OR PHYSICAL STIMULI, PT ON BIPAP, O2 SAT 100%, FIO2: 50, PT'S HR 94, BP 102/57 (67), RR 17, PT'S TEMP: 36.9, LOPEZ TIPPED, PT VOIDED 105 MLS OF CLEAR YELLOR URINE, IV FLUIDS INFUSING PER EMAR WNL, NOREPI DRIP INFUSING AT 4 MCG/MIN, PT'S LS CLEAR IN BILATERAL UPPERS, NASAL AIRWAY REMAINS IN PLACE, PT'S LOWER LS DIM, FAINT BILAT CRACKLES, HEART SOUNDS REGULAR, PULSES FAINT, NO SIGNS OF APPARENT DISTRESS OR AGITATION. PT VISIBLE FROM NURSES STATION.
--- NOTE | 2018-12-25 20:24 | NUR ---
PT'S CBG 146, DR. STREETER NOTIFIED, NO NEW ORDERS. PT RESTING IN BED, REMAINS UNRESPONSIVE, PT'S BP 83/48 (56), NOREPI DRIP TITRATED TO 8MCG/MIN, PT'S HR 99, O2 SAT 100, RR 19, TEMP: 36.9.
--- NOTE | 2018-12-25 20:31 | NUR ---
PT'S BP NOW 101/60 (70), HR 97, NOREPI DRIP REMAINS AT 8MCG/MIN, O2 SAT 100, PT REMINS UNRESPONSIVE ON BIPAP, RR 20. PT VISIBLE FROM NURSES STATION.
--- NOTE | 2018-12-25 20:51 | NUR ---
DR. STREETER TO THE UNIT, RECEIVED VERBAL ORDER TO FINISH REMAINING IV FLUID BOLUS THAT WAS PAUSED PREVIOUSLY AND TO CONTINUE TO MONITOR BP/HR/UO.
--- NOTE | 2018-12-25 21:12 | NUR ---
PT NOTED TO MOVE HANDS INDEPENDENTLY, PT CONTINUES TO REMAIN NONRESPONSIVE TO VERBAL OR PHYSICAL STIMULI, PT ON BIPAP, O2 SAT 100, BP 109/58 (68), HR: 94, RR 23, NOREPI DRIP TITRATED TO 6MCG/MIN. NO SIGNS OF DISTRESS OR AGITATION AT THIS TIME,
--- NOTE | 2018-12-25 21:31 | NUR ---
PT'S BP 95/55 (63) AFTER NOREPI TITRATION TO 6MCG/MIN, NOREPI DRIP REMAIN AT 6MCG/MIN, HR 100, IV FLUIDS INFUSING PER EMAR WNL. LOPEZ CATH DRAINING WNL. PT REMAINS ON BIPAP, O2 SAT 100%, PT VISIBLE FROM NURSES STATION.
--- NOTE | 2018-12-25 22:00 | NUR ---
IV ABX/ MEDS GIVEN PER EMAR. PT REMAINS TO BE RESTING IN BED, EYES CLOSED, ON BIPAP, UNRESPONSIVE TO VERBAL OR PHYSICAL STIMULI. PT'S BP 101/58 (65), HR 97, O2 SAT 100%, RR 19, T:37.4, IV FLUIDS INFUSING PER EMAR WNL, NOREPI DRIP REMAINS AT 6MCG/MIN. PT VISIBLE FROM NURSES STATION, LOPEZ CATH DRAINING WNL.
--- NOTE | 2018-12-25 23:30 | NUR ---
PT RESTING IN BED, REMAINS UNRESPONSIVE, NOREPI DRIP REMAINS AT 6 MCG/MIN, PT'S VSS, PT VISIBLE FROM NURSES STATION.
--- NOTE | 2018-12-26 | NUR ---
PT RESTING IN BED, REMAINS UNRESPONSIVE TO VERBAL OR PHYSICAL STIMULI, PT ON BIPAP, O2 SAT 100%, HR 90'S, NOREPI DRIP REMAINS AT 6MCG/MIN, BP 106/58 (68), RR 19, LS REMAIN TO HAVE FAINT CRACKLES IN BILATERAL BASES, NASAL AIRWAY REMAINS PRESENT. BLE PULSES STRONG, BT HYPOACTIVE, LOPEZ CATH DRAINING WNL, QS UO,
--- NOTE | 2018-12-26 01:15 | NUR ---
PT'S BP 111/61 (70), HR 100, NOREPI DRIP TITRATED TO 4MCG/MIN, NEW BAG OF NOREPI HANGING, PT REMAINS TO BE NONRESPONSIVE, RT TO ROOM FOR ASSESSMENT OF BIPAP, O2 SAT 100%, RR 19, LOPEZ CATH DRAINING WNL. VISIBLE FROM NURSES STATION. IV FLUIDS INFUSING PER EMAR WNL.
--- NOTE | 2018-12-26 02:00 | NUR ---
PT REMAINS RESTING IN BED, EYES CLOSED, BREATHS EVEN, ON BIPAP, O2 SAT 100%, NOREPI DRIP AT 6 MCG/MIN, PT'S VSS, VISIBLE FROM NURSES STATION, LOPEZ CATH DRAINING WNL.
--- NOTE | 2018-12-26 02:45 | NUR ---
PT'S CBG TAKEN, PT REMAINS TO BE RESTING IN BED, EYES CLOSED, NONRESPONSIVE TO VERBAL OR PHYSICAL STIMULI, NO SIGNS OF DISTRESS OR AGITATION, VSS, NOREPI DRIP REMAINS AT 6 MCG/MIN, PT VISIBLE FROM NURSES STATION.
--- NOTE | 2018-12-26 04:01 | NUR ---
RT TO ROOM, PT RESTING IN BED, EYES CLOSED, BREATHS EVEN, ON BIPAP, O2 SAT 100 %, RR 22, NO SIGNS OF DISCOMFROT OR RESTLESNESS, PT REMAINS NONRESPONSIVE TO VERBAL OR PHYSICAL STIMULI, LOPEZ CATH DRAINING WNL, HR 100, T: 37.3, BP: 96/52 (64), NOREPI DRIP REMAINS AT 6MCG/MIN, IV FLUIDS INFUSING PER EMR WNL, PT VISIBLE FROM NURSES STATION.
--- NOTE | 2018-12-26 04:15 | NUR ---
LEVOPHED DRIP TITRATED TO 4MCG PT'S VSS, BP 97/54 (64), HR 99, IV FLUIDS INFUSING PER EMAR WNL. PT VISIBLE FROM NURSES STATION.
--- NOTE | 2018-12-26 05:15 | NUR ---
PT NOTED TO HAVE PURPOSEFUL MOVEMENT OF HANDS AND FEET, PT DID HAVE RESPONSE TO PHYSICAL STIMULI AND PT ALSO NODDED HEAD IN RESPONSE TO VERBAL STIMULI, PT DID NOT FOLLOW COMMANDS TO OPEN EYES OR MOVE IN RESPONSE, NO SIGNS OF APPARENT DISTRESS OR AGITATION, PT ON BIPAP, O2 SAT 100%, RR 19, HR 94, BP 106/62 (72) NOREPI DRIP AT 4 MCG/MIN. PT VISIBLE FROM NURSES STATION.
--- NOTE | 2018-12-26 06:21 | NUR ---
PT'S BP 110/70 (79), HR 98, LEVOPHED DRIP TURNED OFF. WILL CONTINUE TO MONITOR. PT RESTING IN BED, EYES CLOSED, BREATHS EVEN, UNLABORED, ON BIPAP, O2 SAT 100%, AIRCRAFT MAINTENANCE INSTRUCTOR FROM "[employer]" HAS ARRIVED AND IS SITTING AT THE BEDSIDE.
--- NOTE | 2018-12-26 09:45 | NUR ---
pt pulled out nasal trumpet on his own. pt sitting up in bed butch nc with 4L of O2.
--- NOTE | 2018-12-26 10:00 | NUR ---
PT SITTING UP IN BED LAURENCE SIPS OF WATER WITH ASSISTANCE FROM CAREGIVER. PT ABLE TO COMMUNICATE WITH CAREGIVER, MOSTLY NON-VERBAL DUE TO PT MRDD AND DOWN'S SYNDROME. IS AWARE.
--- NOTE | 2018-12-26 11:34 | NUR ---
PT LOUDLY REQUESTING A DIET SODA, CALLED TO UPDATE ON PT LOC AND REQUEST, ORDER GIVEN TO [facility]VANCE DIET TO CLEAR LIQUIDS.
--- NOTE | 2018-12-26 11:48 | NUR ---
PT LOUDLY PROTESTING AND ASKING TO GET UP, NOT ABLE TO BE DISTRACTED WITH SODA OR TV. CAREGIVER IS AT THE BED WORKING WITH PT.
--- NOTE | 2018-12-26 12:24 | NUR ---
PT AWAKE AND SITTING UP IN BED, CAREGIVER IS ASSISTING PT WITH CLEAR LIQUID TRAY.
--- NOTE | 2018-12-26 12:34 | NUR ---
IV SITES INTACT, NO REDNESS OR SWELLING NOTED, FLUIDS AND FLUSHES INFUSE EASILY. PT IS AWAKE AND ALERT TO BASELINE, INTERACTING WELL WITH CAREGIVER. PT ABLE TO ANSWER BASIC QUESTIONS. PT DENIES PAIN. PT ABLE TO LAURENCE 100% OF CLEAR LIQUID TRAY. VITALS WNL AT THIS TIME.
--- NOTE | 2018-12-26 13:36 | NUR ---
javon jaffe dc'd per . pt butch adams.
--- NOTE | 2018-12-26 14:08 | NUR ---
PT LAURENCE A FEW BITES OF HAMBURGER AND FRIES, REPEATEDLY ASKS TO GET UP OUT OF BED.
--- NOTE | 2018-12-26 15:10 | NUR ---
PT TRANSPORTED TO MED/SURG ROOM 110 IN THE BED. ALL PERSONAL BELONGINGS WENT WITH PT. CAREGIVER AT BEDSIDE. FULL REPORT GIVEN TO CARISA NUNEZ, ALL QUESTIONS ANSWERED. PT K[facility] MEDS SENT WITH PT TO MED/SURG FLOOR.
--- NOTE | 2018-12-26 15:30 | NUR ---
PT ARRIVED FROM CCU. ASSESSMENT DONE. PT RESPONDING TO STIMULI PER BASELINE (ACCORDING TO CAREGIVER). DEPENDS PLACED, TAMMY CARE DONE. MEDICATION GIVEN. CAREGIVER AT BEDSIDE. BED ALARM ON. SUGAR FREE PUDDING AND DIET COLA PROVIDED. NO ADDITIONAL REQUESTS OR COMPLAINTS AT THIS TIME.
--- NOTE | 2018-12-26 16:55 | NUR ---
PATIENT RESTING IN BED. CAREGIVER IN ROOM. VITAL SIGNS DONE. LOW BLOOD PRESSURE. RN NOTIFIED. CALL LIGHT WITHIN REACH. NO OTHER NEEDS AT THIS TIME
--- NOTE | 2018-12-26 17:30 | NUR ---
IV FLUIDS STOPPED PER MD ORDER. PIV'S SALINE LOCKED, ALCOHOL CAPS APPLIED. PT EATING DINNER. CAREGIVER AT BEDSIDE. NO ADDITIONAL REQUESTS AT THIS TIME. CALL LIGHT WITHIN REACH.
--- NOTE | 2018-12-26 17:36 | NUR ---
MD NOTIFED OF PT BP AND LACK OF VOID SINCE TRANSFER. NO NEW ORDERS AT THIS TIME, WILL CONTINUE TO MONITOR.
--- NOTE | 2018-12-26 17:53 | NUR ---
PT TRANSFERED FROM CCU THIS SHIFT FOR ENCEPHALOPATHY, MRDD. PT TOLERATING REGULAR DIET W/O NAUSEA. PT HAS YET TO GET OUT OF BED PT IS CURRENTLY REFUSING TRANSFERS. MONVMENT WITHIN BED AND BEHAVIOR HAS RETURNED TO PTS BASELINE. CAREGIVER AT BEDSIDE. SCHEDULE BLOOD SUGAR CHECKS WITH SS INSLUIN. JOHN HENRIQUEZ'D IN CCU. PT HAS YET TO VOID, HX OF RETENTION, AWARE, CONTINUE TO MONITOR. PIV SALINE LOCKED AT THIS TIME. DEPENDS IN PLACE. CHRONIC 2L O2 BY NC IN PLACE. PT TO BE 1:1 THIS EVENING, PT DOES NOT USE CALL LIGHT.
--- NOTE | 2018-12-26 18:28 | NUR ---
PATIENT RESTING IN BED. CAREGIVER IN ROOM. PATIENT USES A BASE COMMODE. PATIENT BACKS TO BED. THREE PERSON ASSISTING. PATIENT USING A CLEAN GOWN AND ATTENDS. LINENS CHANGED. WARM BLANKET PROVIDED. BED ALARM ON. CALL LIGHT WITHIN REACH. NO OTHER NEEDS AT THIS TIME
--- NOTE | 2018-12-26 19:13 | NUR ---
PT RESTING IN BED, ALERT, UNABLE TO ASSESS ORIENTATION DUE TO HX OF MRDD AND LIMITED SPEAKING ABILITY, CAREGIVER AT BEDSIDE, NO REQUESTS AT THIS TIME, NO SIGNS OF DISTRESS OR AGITATION. CALL LIGHT WITHIN REACH.
--- NOTE | 2018-12-26 19:43 | NUR ---
THIS RN IN ROOM WITH PT, PT RESTING IN BED, ON 4LNC, NO SIGNS OF DISCOMFORT.
--- NOTE | 2018-12-26 20:44 | NUR ---
PT GIVEN SCHEDULED MEDS, TOLERATED PO MEDS WELL WITH APPLE SAUCE, DR. ALVARADO TO THE FLOOR, CONFIRMED 2000 ML FLUID RESTRICTION WELL CARDIAC DIET, ALSO MENTIONED IF THE PT HAS URINARY RETENTION GREATER THAN 500 THAT THE PT CAN BE STRAIGHT CATHED IF NEED BE, PT RESTING IN BED, WATCHING TV, PT'S OXYGEN WAS ABLE TO BE TITRATED DOWN TO 2LNC, O2 SAT 95%, NO SIGNS OF SOB/CP, THIS RN REMAIN IN ROOM WITH PT.
--- NOTE | 2018-12-26 22:36 | NUR ---
PT RESTING IN BED, NO SIGNS OF DISCOMFORT OR AGITATION, PT ON 2LNC, NO SIGNS OF SOB/CP, THIS RN IN ROOM WITH PT, IV ABX INFUSING PER EMAR WNL.
--- NOTE | 2018-12-27 00:41 | NUR ---
PT RESTING IN BED, ON 2LNC, THIS RN IN ROOM WITH PT, NO SIGNS OF DISTRESS OR AGITATION, PT OCCASIONALLY YELLING "NO" "SHUT UP", PT IS CONSOLABLE WITH DISTRACTION, IV SL, THIS RN REMAINS IN ROOM.
--- NOTE | 2018-12-27 01:45 | NUR ---
ATTENDS CHANGED WITH HELP OF TOY SEPTEMBER, PT WAS INCONTINENT OF VERY LARGE VOID, ATTENDS CHANGED, PT REPOSITIONED IN BED, PT YELLING OUT WHEN TURNED BUT WAS ABLE TO CONSOLE PT WITH DISTRACTION AND REASSURANCE. PT REMAINS RESTING IN BED, ON 2LNC, NO NEEDS AT THIS TIME, THIS RN REMAINS IN ROOM WITH PT 1:1.
--- NOTE | 2018-12-27 03:56 | NUR ---
PT RESTING IN BED, THIS RN IN ROOM WITH PT, ON 2LNC, NO NEEDS AT THIS TIME, THIS RN TO REMAIN 1:1 WITH PT.
--- NOTE | 2018-12-27 06:45 | NUR ---
MORNING MEDS GIVEN, PT'S CBG 115, NO INSULIN COVERAGE NEEDED, PT'S FLUE GAS ANALYST HAS ARRIVED AND IS SITTING 1:1 WITH PT, PT ON 2LNC, NO NEEDS AT THIS TIME. CALL LIGHT WITHIN REACH.
--- NOTE | 2018-12-27 07:46 | NUR ---
PATIENT SLEEPING. CAREGIVER IN ROOM. PATIENT'S BREAKFAST ORDERED. CALL LIGHT WITHIN REACH. NO OTHER NEEDS AT THIS TIME
--- NOTE | 2018-12-27 08:42 | NUR ---
PT SLEEPING AT THIS TIME, RESP EVEN AND NON LABORED. PT ON 2L OXYGEN PER NC. PT HAS NO NOTABLE DISTRESS. PT'S CAREGIVER AT BEDSIDE. PERSONAL SUPPLIES AND CALL LIGHT WIHTIN REACH. NO NEEDS AT THIS TIME.
--- NOTE | 2018-12-27 09:46 | NUR ---
PATIENT SLEEPING. CAREGIVER IN ROOM. VITAL SIGNS DONE. I COULD NOT DO I&O BECAUSE THE PATIENT IS ASLEEP AND HAS NOT EATEN ANY FOOD OR TAKEN FLUIDS THIS MORNING. I COULD NOT CHANGE HIS ATTEND EITHER BECAUSE THE CAREGIVER TOLD ME TO WAIT FOR HIM TO WAKE UP BECAUSE THE PATIENT DID NOT SLEEP ALL NIGHT. RN AND RN IN CHARGE NOTIFIED. CALL LIGHT WITHIN REACH. NO OTHER NEEDS AT THIS TIME
--- NOTE | 2018-12-27 11:12 | NUR ---
PATIENT RESTING IN BED. RN AND CAREGIVER IN ROOM. PATIENT ATTEND AND LINENS CHANGED. THREE PERSON ASSISTING. PATIENT USING A CLEAN GOWN AND ADULT PULL UP. CALL LIGHT WITHIN REACH. NO OTHER NEEDS AT THIS TIME
--- NOTE | 2018-12-27 13:03 | NUR ---
PATIENT RESTING IN BED. CAREGIVER IN ROOM. PATIENT ATTENDS, GOWM AND LINENS CHANGED. THREE PERSON ASSISTING. VITAL SIGNS AND I&O DONE. CALL LIGHT WITHIN REACH. NO OTHER NEEDS AT THIS TIME
--- NOTE | 2018-12-27 13:21 | NUR ---
PT IN BED RESTING, EYES OPEN AND RESPONDS WITH SHORT WORDS WHEN SPOKEN TO. CAREGIVER AT BEDSIDE. PERSONAL SUPPLIES AND CALL LIGHT WITHIN REACH.
--- NOTE | 2018-12-27 14:45 | NUR ---
PATIENT USING BASE COMMODE. CAREGIVER IN ROOM. PATIENT ATTEND CHANGED. PATIENT BACKS TO CHAIR. TWO PERSON ASSISTIN. DIET SODA GIVEN. CALL LIGHT WITHIN REACH. NO OTHER NEEDS AT THIS TIME
--- NOTE | 2018-12-27 18:01 | NUR ---
PATIENT SITTING UP IN CHAIR. CAREGIVER IN ROOM. VITAL SIGNS AND I&O DONE. CALL LIGHT WITHIN REACH. NO OTHER NEEDS AT THIS TIME
--- NOTE | 2018-12-27 18:15 | NUR ---
TOLERATING DIET WELL. 2K FLUID RESTRICTION. 1PA TO CHAIR. SHOWER TODAY. INCONT URINE/STOOL. 2L OXYGEN PER HOME. CAREGIVER AT BEDSIDE. SL. 1:1. PT DOES NOT USE CALL LIGHT APPROP.
--- NOTE | 2018-12-27 19:46 | NUR ---
REPORT RECEIVED, PT RESTING IN BEDSIDE CHAIR, CAREGIVER AT BEDSIDE, NO REQUESTS AT THIS TIME, CALL LIGHT WITHIN REACH.
--- NOTE | 2018-12-27 20:07 | NUR ---
pt's caregiver left at 1999. home restoration service supervisor called and asked if i could began 1:1 with pt. He is currently resting at this time. Televison on low volume which pt enjoys.
--- NOTE | 2018-12-27 20:49 | NUR ---
pt states "hey, I wanna get up". I asked if he was uncomfortable he said "Yeah". I reposition pt so he has proper body alignment and asked if this was better. He replied "yeah" and blew raspberries and also laughed at me. pt seems to be in a good mood. trying to rest on and off.
--- NOTE | 2018-12-27 21:38 | NUR ---
EVENING MEDS ADMINISTERED IN APPLE SAUCE, PT TOLERATED WELL, PT'S CBG 141, INSULIN COVERAGE PROVIDED PER EMAR, PT RESTING IN BED, ASSESSMENT COMPLETE, PT ALERT/ORIENTED AT BASELINE, TOY EVANS IN ROOM WITH PT AT THIS TIME, NO REQUESTS FALL PRECAUTIONS IN PLACE
--- NOTE | 2018-12-27 23:01 | NUR ---
patient was coughing harshly and i was worried. He stated " im dilan throw up" so i sat him up on the side of the bed and he sat there for a min. Then got up and said he needed to use the bathroom. we went in and he sat on the toilet and i changed out his breif. He burped very loudly it sounded as he was going to throw up. I notified ENRIQUE Redmond and she informed ENRIQUE Saini, he then came into the room to check on pt. I was having difficulty trying to get pt back into bed so ENRIQUE Saini assisted me. Pt seemed frightened but we calmed him. Eventually we got him into the bed and he was yelling "NO I WANT PAPA (or BAPA) something to that etc. ENRIQUE Saini got pt to calm down very nicely. He gifted a warm blanket to pt and this helped. pt is still requesting "papa/bapa" and is yelling "I want to get up, come on". stay tuned.
--- NOTE | 2018-12-27 23:13 | NUR ---
TOY EVANS IN ROOM WITH PT, PT STATED THAT HE NEEDED TO VOMIT, PT UP TO BATHROOM WITH TOY EVANS, PT YELLING IN ROOM, AGITATED, DID NOT WANT TO COOPERATE OR FOLLOW INSTRUCTIONS, PT WAS PLACED BACK IN BED BY TOY AND THIS RN, PT CONTINUES TO YELL, AND IS DIFFICULT TO CONSOLE, PT GIVEN WARM BLANKETS AND PUDDING, TOY EVANS REMAINS IN ROOM WITH PT.
--- NOTE | 2018-12-27 23:30 | NUR ---
DR. ALVARADO NOTIFIED OF PT YELLING AND BEING DIFFICULT TO CONSOLE WELL AGITATED BEHAVIOR, RECEIVED ORDER FOR PRN SEROQUEL, SEE EMAR. PT GIVEN MED IN PUDDING, TOLERATED WELL. TOY EVANS REMAINS IN ROOM W/PT.
--- NOTE | 2018-12-27 23:57 | NUR ---
pt is now calm. He had an EKG done and tolerated well. ENRIQUE Saini asked for a new blood pressure whic is charted, 126/76 and a map of 86.
--- NOTE | 2018-12-28 00:15 | NUR ---
THIS RN NOTIFIED BY CCU RN LAW THAT THE PT'S TELEMETRY IS SHOWING ECTOPY WITH BIGEMONY AND PAC'S, EKG COMPLETED, CCU RN NOTIFIED DR. ALVARADO, SEE NOTES. PT IS RESTING IN BED, QUIETLY AT THIS TIME, PT'S BP WNL, O2 SAT 95%, ON 2LNC, HR 80'S. TOY EVANS IN ROOM 1:1 WITH PT.
--- NOTE | 2018-12-28 00:24 | NUR ---
Notified Dr. Santos that patient has been having increased ectopy on tele with bigeminy, frequent PVCs, PACs, occasional inverted T-waves, and non-specific ST changes, as well as occasional a-fib. notified MD that EKG was ordered and is ready for review by MD. Also confirmed that MD was aware of 1111 venous blood gas results from 12/27. Notified MD that patient was at rest at time of noticed increased ectopy. Received order for 2 grams IV mag sulfate once, confirmed that MD does not wish to draw labs at this time. Notified ENRIQUE Siani of conversation with Dr. Santos and aware of magnesium order.
--- NOTE | 2018-12-28 01:16 | NUR ---
PT GIVEN SECOND DOSE OF 12.5MG OF SEROQUEL PER MD ORDER DUE TO PT CONTINUING TO PULL ON COTHING AND TUBING WELL YELLING AND BEING DIFFICULT TO CONSOLE, TOY EVANS IN ROOM WITH PT NOW,
--- NOTE | 2018-12-28 03:28 | NUR ---
PT RESTING IN BED, EYES CLOSED, BREATHS EVEN, VISIBLE FROM NURSES STATION. BED ALARM ON.
--- NOTE | 2018-12-28 05:02 | NUR ---
I was able to leave pt room as he slept but continued to check on him periodically. pt is still currently sleeping with minor shifting in his positioning.
--- NOTE | 2018-12-28 05:12 | NUR ---
PT ALERT TO BASELINE, PT WAS DIFFICULT TO CONSOLE THIS NIGHT AND DID HAVE SOME AGITATION, PT RECEIVED SEROQUEL PER ORDER, SEE NOTES, PT DID GET UP OUT OF BED WITH 1 PERSON ASSIST, TOLERATED WELL. PT NOTED BY CCU RN TO HAVE SOME INCREASED ECTOPY WELL PAC'S AND NONSPECIFIC T WAVE VARIATION, EKG WAS DONE AND MD NOTIFIED, PT RECEIVED IV MAGNESIUM INFUSION, SEE NOTES. PT HAS BEEN SLEEPING MOST OF NIGHT, ON 2LNC, BED ALARM ON, 1:1 SITTER IN ROOM W/PT WHILE AWAKE. TOLERATING DIET, 2000 ML FLUID RESTRICTION.
--- NOTE | 2018-12-28 06:30 | NUR ---
patient was changed by ENRIQUE Saini and myself. Now that patient is awake he is persist on "getting up". calling out and yelling.
--- NOTE | 2018-12-28 06:42 | NUR ---
PT AWAKE, VSS, PT'S CBG 122, NO INSULIN COVERAGE INDICIATED, PT RESTING IN BED, TOY EVANS AT BEDSIDE. PT TOLERATED MORNING MEDS IN APPLE SAUCE. CALL LIGHT WITHIN REACH.
--- NOTE | 2018-12-28 07:04 | NUR ---
REPORT RECEIVED FROM ENRIQUE VELAZQUEZ. PT RESTING IN BED, RAILROAD MECHANIC AT BEDSIDE. CAREGIVER YET TO ARRIVE. PT APPEAR RELAXED, NO PARTICULAR EXPRESSION. BED RAILS UP. O2 AT 2L NC IN PLACE.
--- NOTE | 2018-12-28 07:48 | NUR ---
PATIENT IN BED RESTING WITH EYES CLOSED, BED ALARM ON. CALL LIGHT IN REACH. NO FURTHER NEEDS AT THIS TIME.
--- NOTE | 2018-12-28 08:06 | NUR ---
MORNING ASSESSMETN DUE. PT RESTING WITH EYES CLOSED, RESPIRATIONS REGULAR, PT USING ACESSORY MUSCLES WITH OCCATIONAL SNORING. PT AWAKENS TO VOICE AND LIGHT TOUCH. PT DENIES PAIN. 2L O2 BY NC IN PLACE PER BASELINE. PT CONTINUES RESTING WITH EYES CLOSED. BREAKFAST HELD WHILE AWAITING FOR CAREGIVER TO ARRIVE. BED RAILS UP. BED ALARM ON.
--- NOTE | 2018-12-28 09:25 | NUR ---
PT AWAKE AND RESPONDING APPROPRIATLY. PT ASSISTED WITH EATING BREAKFAST. ABG DRAWN BY RT. LILO RN TO BEDSIDE FOR 1:1 CARE. CAREGIVER FACILITY CALLED AND STATES CONSTRUCTION FOREMAN WILL ARRIVE SOON. BED RAILS UP. BED ALARM ON.
[2018-12-28] MEDS ORDERED: AMOX TR-K CLV1 EAC1 PO (10:25)
[2018-12-28] MEDS ORDERED: COREG3.125 MG PO (10:58)
--- NOTE | 2018-12-28 11:07 | NUR ---
PATIENT IN BED, CAREGIVER AND RN IN ROOM. TAMMY CARE DONE. CALL LIGHT IN REACH. NO FURTHER NEEDS AT THIS TIME.
--- NOTE | 2018-12-28 11:23 | NUR ---
PT READY FOR DISCHARGE. THIS RN AND TOY OLIVERA TO BEDSIDE. DEPENDS CHANGED, TAMMY CARE DONE. PT DRESSED WITH ASSISTNACE. PIV'S DC'D PER PROTOCOL, GAUZE AND COBAN APPLIED. PT TRANSFERED WITH 2PA TO WHEELCHAIR. AWAITING CAREGIVER, WHO IS BRINING HOME O2 TANK, TO TAKE PT HOME. DISCHRAGE INSTRUCTIONS TO BE REVIEWED WITH CAREGIVER.
--- NOTE | 2018-12-28 11:40 | NUR ---
CAREGIVER ARRIVED W/PTS HOME O2 TANK. DISCHARGE INSTRUCTIONS REVIEWED. PHARAMCIST IN TO VISIT WITH CAREGIVER REGARDING HOME MEDICATIONS. CAREGIVER VERBALIZES UNDERSTANDING. PT WHEELED FORM CLINIC. ALL PERSONEL BELONGS RETURNED. PT TRANSFERES SELF INTO CAR WITH 1PA. NO ADDITIONAL QUESTIONS, CONCNERS, OR COMPLAINTS.
--- NOTE | 2018-12-28 15:18 | EKG ---
[facility] [address] [facility] [place] [address] Signed Sinus rhythm with premature atrial complexes Left anterior fascicular block Nonspecific T wave abnormality Prolonged QT Abnormal ECG When compared with ECG of 25-DEC-2018 11:04, premature atrial complexes are now present Confirmed by PANDA ALVARADO DO ([id number]) on 12/28/2018 3:18:05 PM Electronically Signed By: PANDA ALVARADO DO 12/28/18 1518 PATIENT NAME: SHAWN MAIN KAITY Electrocardiogram DATE OF : 59 PHYSICIAN: PANDA ALVARADO DO REPORT #: [id number] REPORT IS CONFIDENTIAL AND NOT TO BE RELEASED WITHOUT AUTHORIZATION
== END 2018-12-28 12:00 | disposition home or self-care (01) | DRG 871 ==
LOC: ED 10:32 → CCU 12:21 → MS 12-26 15:15
PROVIDERS: ADMIT Internal Medicine
PROC: 5A09357 Assistance with Respiratory Ventilation, Less than 24 Consecutive Hours, Continuous Positive Airway Pressure (ICD-10-PCS; principal; 2018-12-25)
PROC: 3E033XZ Introduction of Vasopressor into Peripheral Vein, Percutaneous Approach (ICD-10-PCS; 2018-12-25)
DX: A41.9 Sepsis, unspecified organism (principal); G93.41 Metabolic encephalopathy; J96.02 Acute respiratory failure with hypercapnia; J96.11 Chronic respiratory failure with hypoxia; E87.2 Acidosis; Q23.3 Congenital mitral insufficiency; Q90.9 Down syndrome, unspecified; H54.7 Unspecified visual loss; J32.9 Chronic sinusitis, unspecified; I11.0 Hypertensive heart disease with heart failure; I50.9 Heart failure, unspecified; K59.00 Constipation, unspecified; G40.909 Epilepsy, unspecified, not intractable, without status epilepticus; E78.5 Hyperlipidemia, unspecified; M10.9 Gout, unspecified; I25.10 Atherosclerotic heart disease of native coronary artery without angina pectoris; I95.9 Hypotension, unspecified; E11.40 Type 2 diabetes mellitus with diabetic neuropathy, unspecified; E03.9 Hypothyroidism, unspecified; E55.9 Vitamin D deficiency, unspecified; D56.9 Thalassemia, unspecified; G47.33 Obstructive sleep apnea (adult) (pediatric); Z99.81 Dependence on supplemental oxygen; Z88.8 Allergy status to other drugs, medicaments and biological substances; Z79.84 Long term (current) use of oral hypoglycemic drugs; Z79.82 Long term (current) use of aspirin; Z79.899 Other long term (current) drug therapy
CPT/HCPCS: 36415; 36600; 70450; 71045; 80048; 80053; 81001; 82550; 82803; 83605; 83735; 83880; 84484; 85025; 85651; 93005; 93010; 94660; 94760; 96360; 99291; 99292; C9113; G0480; J1650; J1720; J1815; J2060; J2185; J3475; J3480; J7030; J7040; J7060; J7120

== ENCOUNTER 2019-12-21 20:21 | Emergency (ER) | payer MEDICARE, OTHER ==
[~2019-12-21] VITALS: Ht 154.9 cm; Wt 68.0 kg
[~2019-12-21 20:21] MED LIST changes: +ADVANCED EYE R3.5 GM OPTH; +AMOX TR-K CLV1 EAC1 PO; +ASPIRIN EC81 MG PO; +COREG3.125 MG PO; +SPIRONOLACTONE25 MG PO; +[UNRECOGNIZED DRUG - OTHER] TOP
== END 2019-12-22 01:01 | disposition home or self-care (01) ==
LOC: ED 20:21
DX: R09.02 Hypoxemia (principal); E11.40 Type 2 diabetes mellitus with diabetic neuropathy, unspecified; I11.0 Hypertensive heart disease with heart failure; I50.9 Heart failure, unspecified; E78.5 Hyperlipidemia, unspecified; E03.9 Hypothyroidism, unspecified; Z88.8 Allergy status to other drugs, medicaments and biological substances; Z79.899 Other long term (current) drug therapy; Z79.82 Long term (current) use of aspirin; Z79.84 Long term (current) use of oral hypoglycemic drugs
CPT/HCPCS: 51701; 71045; 80053; 81001; 83605; 83880; 85025; 99285-25; C9803; J1940; U0002

== ENCOUNTER 2020-01-26 10:41 | Emergency (ER) | payer MEDICARE, OTHER ==
[~2020-01-26] VITALS: Ht 154.9 cm; Wt 68.0 kg
--- OUTSIDE RECORDS SUMMARY | ~2020-01-26 | XMS | Encounter Summary ---
Demographics + + + | Address | [address] [place] [address] [place] [address] | | | [place] [address] | + + + | Home Phone | | + + + | Preferred Language | Unknown | + + + | Marital Status | Single | + + + | Mandaen Affiliation | NON | + + + | Race | Black or | + + + | Ethnic Group | Not or | + + + Author + + + | Author | [facility] | + + + | Organization | [facility] | + + + | Address | Unknown | + + + | Phone | Unavailable | + + + Support + + + + + | Name | Relationship | Address | Phone | + + + + + | [facility] | ECON | [address] | | | [address] | | [place] | | | | | [address] | | + + + + + Care Team Providers + +------+ + | Care School Crossing Guard Supervisor Name | Role | Phone | + +------+ + | Moon Alarcon DO | PCP | | + +------+ + Reason for Visit + + + | Reason | Comments | + + + | Medical Eye | | | Examination | | + + + | Down syndrome | | + + + Encounter Details +--------+---------+ + + + | Date | Type | Department | Care Team | Description | +--------+---------+ + + + | 10/11/ | Office | [facility] | Rohit Chauhan, | Corneal scars, both | | 2016 | Visit | [place]/Ophthalmol | ,PhD [address] | eyes (Primary Dx); | | | | ogy at [facility] [address] | Atopic | | | | [facility] | [address], [place] | keratoconjunctivitis | | | | [facility] and He[facility], | [phone] | ; Down's syndrome | | | | | | | | | | Floor [place], [place] | | | | | | [address] | | | | | | [phone] | | | +--------+---------+ + + + Social History + +-------+ +--------+------+ | Tobacco Use | Types | Packs/Day | Years | Date | | | | | Used | | + +-------+ +--------+------+ | Never Smoker | | | | | + +-------+ +--------+------+ + + +---------+ + | Alcohol Use | Drinks/Week | oz/Week | Comments | + + +---------+ + | Not Asked | 0 Standard drinks | 0.0 | | | | or equivalent | | | + + +---------+ + + + + | Sex Assigned at | Date Recorded | | | | + + + | Not on file | | + + + + + + + | Job Start Date | Occupation | Industry | + + + + | Not on file | Not on file | Not on file | + + + + + + + + | Travel History | Travel Start | Travel End | + + + + + + | No recent travel history available. | + + documented as of this encounter Progress Notes Lana Anthony MD - 10/13/2015 10:17 AM PDTATTENDING NOTE I saw and evaluated the patient. I agree with the findings and the plan of care as samantha yee in the resident s note. 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 Anthony today. Physician: Rohit Chauhan MD 10/12/2015 HPI: Isac Sanford ([id number]), 59 y.o. year old male from [place] : Patient presents w ith: Medical Eye Examination Down syndrome Pt here today for eye exam, with caregiver, he said they were to see his regular optometris t for his eye exam and they were told Isac has cataracts and needs an eye exam with an o phthalmologist to evaluated them.. Putting refresh eye drops. Tobacco use: reports that he has never smoked. He does not have any smokeless tobacco hist ory on file. Primary Care Provider: Moon Alarcon DO Past ocular history: No specialty comments on file. Family ocular history: Family History: See scanned intake form or preadmission data in [facility] for full Family ocular and medical his tory. Allergies: has No Known Allergies. Medications: Current Outpatient Prescriptions Medication Sig ACETAMINOPHEN 650 MG TAB take 1 tablet (650mg) by oral route every 4 hours as needed COYELYF-WYTNAA-LGMLIRHD OR sprinkle 1/4 tsp on breakfast ASPIRIN 81 MG TAB one tab daily CALCIUM + D OR two tablets twice daily CENTRUM SILVER TAB one tab by mouth daily LEVOTHYROXINE 200 MCG TAB one tab daily MAALOX OR 30ml prn MAGNESIUM HYDROXIDE 400 MG/5 ML ORAL SUSP take 30 milliliters by oral route once daily as needed, followed by afull glass (8oz) of liquid prn METFORMIN 1,000 MG TAB take 1 tablet (1,000mg) by oral route 2 times per day with morni ng and evening meals NAPROXEN 500 MG TAB take 1 tablet (500mg) by oral route 2 times per day with food NIACIN-LOVASTATIN SR 500 MG-20 MG MULTIPHASE 24 HR TAB take 1 tablet by oral route once daily at bedtime with a low-fat snack; take whole, do not break, crush, or chew before swal lowing olopatadine (PATADAY) 0.2 % ophthalmic drops Instill 1 drop into both eyes once daily. Indications: Allergic Conjunctivitis PSYLLIUM 28 % ORAL PACKET mix in water twice daily TRIAMTERENE-HYDROCHLOROTHIAZID 37.5 MG-25 MG TAB take 1 tablet by oral route once daily No current facility-administered medications for this visit. Medical history/PMH/Review of systems: Patient Active Problem List Diagnosis Atrioventricular Canal Type Ventricular Septal Defect Congenital Anomaly of Heart Past Medical History Diagnosis Date HTN (hypertension) has no past surgical history on file. Reviewed systems for: fever, wt. loss, ENT, cardiovascular, pulmonary, GI, urinary, neurolo gic, endocrine, bleeding/blood disorders, AIDS/HIV, cancer/tumors, arthritis - all were nega tive except as noted above. EXAMINATION: Base Exam Visual Acuity (Snellen - Linear) Right Left Dist sc Fix and follow Fix and follow Tonometry unable Pupils Unable due to poor view and cooperation Visual Briones unable Extraocular Movement Right Left Result Full Full Slit Lamp and Fundus Exam Slit Lamp Exam Right Left Lids/Lashes 3+ papillae UL with eversion, shortened horizontal palpebral fissure, +LMT 2+ papillae UL with eversion, shortened horizontal palpebral fissure, +LMT Conjunctiva/Sclera Trace Injection Trace Injection Cornea apical scarring, likely +Rossi sign apical scarring Anterior Chamber Deep Deep Iris Normal Normal Lens poor view poor view Vitreous no view no view Very difficult exam done primarily with muscle light Fundus Exam Right Left Disc no view no view I, Robert JACKMAN, performed, reviewed or revised the above history, medications, allergies, a s well as performed elements noted in the Base Ophthalmology Exam, including visual acuity, pupils, EOMs, CVF and IOP. See EPIC ophthalmology module for exam information. Assessment and Plan is now at the top of the note. Physician: Rohit Chauhan MD documented in this encounter Plan of Treatment + + +--------+ + + | Name | Type | Priori | Associated Diagnoses | Order Schedule | | | | ty | | | + + +--------+ + + | ULTRASOUND, B SCAN | Procedures | Routin | Corneal scars, | Expected: | | | | e | both eyes | 10/12/2015, Expires: | | | | | | 04/12/2017 | + + +--------+ + + documented as of this encounter Visit Diagnoses + + | Diagnosis | + + | Corneal scars, both eyes - Primary Corneal opacity, unspecified | + + | Atopic keratoconjunctivitis Other keratoconjunctivitis | + + | Down's syndrome | + + documented in this encounter"
--- OUTSIDE RECORDS SUMMARY | ~2020-01-26 | XMS | Encounter Summary ---
Demographics + + + | Address | [address] [place] [address] [place] [address] | | | [place] [address] | + + + | Home Phone | | + + + | Preferred Language | Unknown | + + + | Marital Status | Single | + + + | Mormon Affiliation | NON | + + + | Race | Black or | + + + | Ethnic Group | Not or | + + + Author + + + | Author | [facility] | + + + | Organization | [facility] | + + + | Address | Unknown | + + + | Phone | Unavailable | + + + Support + + + + + | Name | Relationship | Address | Phone | + + + + + | [facility] | ECON | [address] | | | [address] | | [place] | | | | | [address] | | + + + + + Care Team Providers + +------+ + | Care Work Checker Name | Role | Phone | + +------+ + | Moon Alarcon DO | PCP | | + +------+ + Encounter Details +--------+ + + + + | Date | Type | Department | Care Team | Description | +--------+ + + + + | 09/09/ | Ancillary | Registration [id number] | [address], | | | 2004 | Registratio | [address] | [address] | | | | n | [address] Mailcode: [id number] | [place], [place] | | | | | [place], [place] | [address] | | | | | [address] | [phone] | | | | | [phone] | | | +--------+ + + + + Social History + +-------+ [...] + + documented as of this encounter Plan of Treatment Not on filedocumented as of this encounter Visit Diagnoses Not on filedocumented in this encounter"
--- OUTSIDE RECORDS SUMMARY | ~2020-01-26 | XMS | Encounter Summary ---
Demographics + + + | Address | [address] [place] [address] [address] | | | [place] [address] | + + + | Home Phone | | + + + | Preferred Language | Unknown | + + + | Marital Status | Single | + + + | Caodaism Affiliation | NON | + + + | Race | Black or | + + + | Ethnic Group | Not or | + + + Author + + + | Author | [facility] | + + + | Organization | [facility] | + + + | Address | Unknown | + + + | Phone | Unavailable | + + + Support + + + + + | Name | Relationship | Address | Phone | + + + + + | [facility] | ECON | [address] | | | Center | | [place] | | | | | [address] | | + + + + + Care Team Providers + +------+ + | Care Editor Name | Role | Phone | + +------+ + | Moon Alarcon DO | PCP | | + +------+ + Reason for Visit + + + | Reason | Comments | + + + | New patient | | | consultation | | + + + Office Visit - E/M Services (Routine) +--------+--------+ + + + + | Status | Reason | Specialty | Diagnoses / | Referred By | Referred To | | | | | Procedures | Contact | Contact | +--------+--------+ + + + + | Closed | | Ophthalmology | | Dorian, | Mark, | | | | | | Moon Gonsalves, | Anthony Macedo MD | | | | | | DO [place] | [place] | | | | | | [facility] | Cataract and | | | | | | HOSP[facility] | Laser | | | | | | [address] | [place] | | | | | | [address] | [address] | | | | [address] [place] | [address] | | | | | | [address] | [address] | | | | | | Phone: | [place], [place] | | | | | | [phone] | [address] Phone: | | | | | | Fax: | [phone] | | | | | | [phone] | | +--------+--------+ + + + + Encounter Details +--------+---------+ + + + | Date | Type | Department | Care Team | Description | +--------+---------+ + + + | 11/21/ | Office | [facility] | Anthony Flores | Corneal scars, both | | 2016 | Visit | [place] [facility] at | MD Jennifer Macedo | eyes (Primary Dx) | | | | [facility] [address] | Cataract and Laser | | | | | [address] | [place] [address] | | | | | Eye [place], [address]th | [facility] [address] | | | | | floor [place], [place] | [place] [address] | | | | | [address] | [phone] | | +--------+---------+ + + + Social [...] documented as of this encounter Progress Notes Jennifer Perea R - 11/22/2015 3:04 PM PDT Cornea Division Progress Note 11/22/2015 Chief Complaint Patient presents with New patient consultation Patient referred by Dr. Chauhan for corneal scarring; patient has Down's syndrome and diffic ult to examine. History from medical billing clerk who has accompanied the patient - he reports that the patient was reported as being blind when the aide starting working with him, but that b ased on behavior and actions it is clear the patient can see. He notes that the patient is an active eye rubber, appears to be able to see (slaps five, directs with eyes to see faces) . The patient has no glasses. 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 No pertinent past surgical history. Family history: unknown History Smoking status Never Smoker Smokeless tobacco Not on file Allergies Allergen Reactions Tegretol [Carbamazepine] Unknown Current Outpatient Prescriptions (Ophthalmic Medications) Medication Sig olopatadine Instill 1 drop into both eyes once daily. Indications: Allergic Conjunctivi tis white petrolatum-mineral oil twice daily as needed. Current Outpatient Prescriptions (Other) Medication Sig allopurinol Aspirin one tab daily CALCIUM + D OR two tablets twice daily carvedilol furosemide levothyroxine one tab daily lisinopril lovastatin metFORMIN take 1 tablet (1,000mg) by oral route 2 times per day with morning and evenin g meals omeprazole spironolactone All else unless noted was neg. (fever, wt. loss, ENT, cardiovascular, pulmonary, GI, urinar y, neurologic, endocrine, bleeding/blood disorders, AIDS/HIV, cancer/tumors, arthritis) Ring Spinner Attestation: I, Jennifer PILLAI, performed the above history, medications, all ergies, as well as performed elements noted in the Base Ophthalmology Exam. Examination: Not recorded IMPRESSION: 1. 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 B-scan performed 11/22/2015 - appears wnl PLAN: 1. Can consider Exam under anesthesia (EUA) to address cornea scarring - if predominantly superficial can consider superficial keratectomy at the time of EUA - would be difficult post-operatively given eye rubbing and poor exam - unclear what, if any impact this would have on patient ADLs, [facility] Observe, [facility] determine if they would like to proceed wi th EUA - will need to consider potential anesthesia risk in older Down's syndrome patient Not a good candidate for contact lenses, glasses, or cornea graft due to cooperation and ey e rubbing. documented in this encounter Plan of Treatment Not on filedocumented as of this encounter Visit Diagnoses + + | Diagnosis | + + | Corneal scars, both eyes - Primary Corneal opacity, unspecified | + + documented in this encounter"
--- OUTSIDE RECORDS SUMMARY | ~2020-01-26 | XMS | Clinical Summary ---
Demographics + + + | Address | [address] [place] [address] [address] | | | [place] [address] | + + + | Home Phone | | + + + | Preferred Language | Unknown | + + + | Marital Status | Single | + + + | Confucianism Affiliation | NON | + + + [...] | + + + + + | [place] | ECON | [address] | | | Center | | [place] | | | | | [address] | | + + + + + Care Team Providers + +------+ + | Care Security Services Specialist Name | Role | Phone | + +------+ + | Moon Alarcon DO | PCP | | + +------+ + Source Comments SON is fully live on both [facility] and [facility] Allergies + + + + + + | Active Allergy | Reactions | Severity | Noted | Comments | | | | | Date | | + + + + + + | Carbamazepine | Unknown | | 11/22/19 | | | | | | 16 | | + + + + + + Medications + + + +---------+------+------+-------+ | Medication | Sig | Dispensed | Refills | Star | End | Statu | | | | | | t | Date | s | | | | | | Date | | | + + + +---------+------+------+-------+ | CALCIUM + D OR | two tablets twice | | 0 | | | Activ | | | daily | | | | | e | + + + +---------+------+------+-------+ | LEVOTHYROXINE 200 | one tab daily | | 0 | | | Activ | | MCG TAB | | | | | | e | + + + +---------+------+------+-------+ | METFORMIN 1,000 MG | take 1 tablet | | 0 | | | Activ | | TAB [...] TAB | one tab daily | | 0 | | | Activ | | | | | | | | e | + + + +---------+------+------+-------+ | allopurinol 100 mg | | | 0 | 04/2 | | Activ | | oral tablet | | | | 8/20 | | e | | | | | | 16 | | | + + + +---------+------+------+-------+ | carvedilol 3.125 | | | 0 | 04/2 | | Activ | | mg oral tablet | | | | 8/20 | | e | | | | | | 16 | | | + + + +---------+------+------+-------+ | furosemide 40 mg | | | 0 | 04/2 | | Activ | | oral tablet | | | | 8/20 | | e | | | | | | 16 | | | + + + +---------+------+------+-------+ | lisinopril 5 mg | | | 0 | 04/2 | | Activ | | oral tablet | | | | 8/20 | | e | | | | | | 16 | | | + + + +---------+------+------+-------+ | lovastatin 20 mg | | | 0 | 04/2 | | Activ | | oral tablet | | | | 8/20 | | e | | | | | | 16 | | | + + + +---------+------+------+-------+ | omeprazole 20 mg | | | 0 | 04/2 | | Activ | | oral capsule,delayed | | | | 8/20 | | e | | release(DR/EC) | | | | 16 | | | + + + +---------+------+------+-------+ | spironolactone 25 | | | 0 | 04/2 | | Activ | | mg oral tablet | | | | 8/20 | | e | | | | | | 16 | | | + + + +---------+------+------+-------+ | white | twice daily as | | 0 | | | Activ | | petrolatum-mineral [...] | | | | | | | allergic | Conjunctivitis | | | | | | | conjunctivitis | | | | | | | [...] recent travel history available. | + + Last Filed Vital Signs + [...] | | + + + + + Plan of Treatment + + + + + | Health Maintenance | Due Date | Last Done | Comments | + + + + + | Influenza (Flu) | | | | | vaccination (#1) | 9 | | | + + + + + | Pneumococcal | Aged Out | | No longer eligible | | vaccination | | | based on patient's | | | | | age to complete this | | | | | topic | + + + + + Results Not on filefrom Last 3 Months Insurance + +--------+ +--------+-------+---------+--------+ | Payer | Benefi | Subscriber | Effect | Phone | Address | Type | | | t Plan | ID | josse | | | | | | / | | Dates | | | | | | Group | | | | | | + +--------+ +--------+-------+---------+--------+ | TELETYPE MECHANIC MEDICAID | TELETYPE MECHANIC | xxxxxxxx | | | | Medica | | | [place]AST[place] | | 015-Pr | | | id | | | [place] | | esent | | | | + +--------+ +--------+-------+---------+--------+ + +--------+ +--------+ + + | Guarantor Name | Accoun | Relation to | Date | Phone | Billing Address | | | t Type | Patient | of | | | | | | | | | | + +--------+ +--------+ + + | Isac Sanford | Person | Self [birth year] [address] | | | al/Fam | | 1955 | [phone] | [place] | | | [place]z | | | [address] (Home) | [phone] | + +--------+ +--------+ + +"
--- OUTSIDE RECORDS SUMMARY | ~2020-01-26 | XMS | Encounter Summary ---
Demographics + + + | Address | [address] [place] [address] [address] | | | [place] [address] | + + + | Home Phone | | + + + | Preferred Language | Unknown | + + + | Marital Status | Single | + + + | Presybeterian Affiliation | NON | + + + | Race | Black or | + + + | Ethnic Group | Not or | + + + Author + + + | Author | [facility] | + + + | Organization | [facility] | + + + | Address | Unknown | + + + | Phone | Unavailable | + + + Support + + + + + | Name | Relationship | Address | Phone | + + + + + | [facility] | ECON | [address] | | | Center | | [place] | | | | | [address] | | + + + + + Care Team Providers + +------+ + | Care Pump Assembler Name | Role | Phone | + [...] | | | | | HOSPITAL | [place], [place] | | | | | | [address] | [address] | | | | | | [address] | Phone: | | | | | | [place] | [phone] | | | | | | [address] | Fax: | | | | | | Phone: | [phone] | | | | | | [phone] | | | | | | | Fax: | | | | | | | [phone] | | +--------+--------+ + + + + Encounter Details +--------+---------+ + + + | Date | Type | Department | Care Team | Description | +--------+---------+ + + + | 09/09/ | Office | Cardiology [facility] at | Ariel Gonzalez S, | Atrioventricular | | 2006 | Visit | [facility] [address] | MD [address] | Canal Type | | | | Ave Center for | [place], [place] | Ventricular Septal | | | | Health and [facility], | [address] | Defect (Primary Dx); | | | | | [phone] | Congenital Anomaly | | | | Floor [place], [place] | | of Heart | | | | [address] | | | | | | [phone] | | | +--------+---------+ + + + [...] in this encounter Progress Notes Ariel Gonzalez - 09/11/2006 2:40 PM PDTFormatting of this note might be different from t he original. Isac Sanford is a 50 y.o. male here for New patient consultation and Congenital heart di [facility] PCP: MONO RAMIREZ DO Referring: Moon Ramirez Past Medical [...] operative repair . (Dr. Phil Fitzgerald in [place], and Dr. Julito West from cardiothoracic surgery) [...] SILVER TAB one tab by mouth daily [id number] OR sprinkle 1/4 tsp on breakfast METFORMIN [...] echocardiogram, became more combative and spit on scrap shear operator. Walk Test: Asked pt to walk briskly, [...] a major way. It may reduce the chcf risk of heart failure, cyanosis, or arrhythmia, [...] offer him a catheterization to start. The watermelon harvesting supervisor issues to follow will be ventricular function, development of arrhythmia, and avoidance of endocarditis. He is already edentulous. We discussed some of these issues to day. Ordinarily Isac should have a yearly visit with a poker prop player. I spoke with Dr. 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
--- OUTSIDE RECORDS SUMMARY | ~2020-01-26 | XMS | Encounter Summary ---
Demographics + + + | Address | [address] [place] [address] [place] [address] | | | [place] [address] | + + + | Home Phone | | + + + | Preferred Language | Unknown | + + + | Marital Status | Single | + + + | Faith Affiliation | NON | + + + [...] + + + + + | [facility] | ECON | [address] | | | Center | | [place] | | | | | [address] | | + + + + + Care Team Providers + +------+ + | Care Training And Development Professional Name | Role | Phone | + [...] Refill Request | | 2017 | | [place]/[facility]hthalmol | | | | | | yijoyce at [address] | | | | | | [address] [facility] | | | | | | Health and Healing, | | | | | | [facility] | | | | | | [place], [place] | | | | | | [address] | | | | | | [phone] | | | +--------+--------+ + + + [...]
--- OUTSIDE RECORDS SUMMARY | ~2020-01-26 | XMS | Encounter Summary ---
Demographics + + + | Address | [address] [place] [address] [place] [address] | | | [place] [address] | + + + | Home Phone | | + + + | Preferred Language | Unknown | + + + | Marital Status | Single | + + + | Episcopalian Affiliation | NON | + + + | Race | Black or | + + + | Ethnic Group | Not or | + + + Author + + + | Author | [facility] | + + + | Organization | [facility] | + + + | Address | Unknown | + + + | Phone | Unavailable | + + + Support + + + + + | Name | Relationship | Address | Phone | + + + + + | [facility] | ECON | [address] | | | Center | | [place] | | | | | [address] | | + + + + + Care Team Providers + +------+ + | Care Steel Plate Caulker Name | Role | Phone | + [...] | Registratio | [address] | [address] | | | | n | [address] Mailcode: [address] | [place], [place] | | | | | [place], [place] | [address] | | | | | [address] | [phone] | | | | | [phone] | | | +--------+ + + + [...]
--- OUTSIDE RECORDS SUMMARY | ~2020-01-26 | XMS | Encounter Summary ---
Demographics + + + | Address | [address] [place] [address] [place] | | | [place] [address] | + + + | Home Phone | | + + + | Preferred Language | Unknown | + + + | Marital Status | Single | + + + | Sikh Affiliation | NON | + + + [...] | + + + + + | [facility] | ECON | [address] | | | Center | | [place] | | | | | [address] | | + + + + + Care Team Providers + +------+ + | Care Power Chisel Operator Name | Role | Phone | + +------+ + PCP | Unavailable | + +------+ + Encounter Details +--------+ + + + + | Date | Type | Department | Care Team | Description | +--------+ + + + + | 09/10/ | Results | | Other, Faculty | | | 1993 | Only | | [phone] | | +--------+ + + + + [...] | | | | | | | [id number] | | | | | | CHEST, [...] | | + +---------+ + + | [facility] DEPARTMENT OF | | | | [...] | | + +---------+ + + | [facility] DEPARTMENT | | | | | RADIOLOGY | | | | + +---------+ + + documented in this encounter Visit Diagnoses Not on filedocumented in this encounter"
--- OUTSIDE RECORDS SUMMARY | ~2020-01-26 | XMS | Encounter Summary ---
Demographics + + + | Address | [address] [place] [address] [address] | | | [place] [address] | + + + | Home Phone | | + + + | Preferred Language | Unknown | + + + | Marital Status | Single | + + + | Church Affiliation | NON | + + + [...] + + + + + | [facility] | ECON | [address] | | | Center | | [place] | | | | | [address] | | + + + + + Care Team Providers + +------+ + | Care High School Science Teacher Name | Role | Phone | + +------+ + | Moon Alarcon DO | PCP | | + +------+ + Encounter Details +--------+ + + + + | Date | Type | Department | Care Team | Description | +--------+ + + + + | 11/21/ | Results/Int | [facility] | Wallace Farah | Corneal scar | | 2016 | erpretation | [facility] | E MD [address] | (Primary Dx) | | | | Lelia Mulligan [address] | Trin[address]ramer | | | | | [address] | [place], [place] | | | | | [facility] | [address] | | | | | [facility], [place] | [phone] | | | | | [address] | [...] Notes Yamilet Hunt - 11/22/2015 4:58 PM Luly Sanford was seen in the [facility]Ultrasound Department today, 11/22/2015, for ultrasound. B-scan [...] image provided, or wait for official report. Yamilet HUNT, MARYOS I have reviewed the images and the [...]
--- OUTSIDE RECORDS SUMMARY | ~2020-01-26 | XMS | Encounter Summary ---
Demographics + + + | Address | [address] [place] [address] [place] [address] | | | [place] [address] | + + + | Home Phone | | + + + | Preferred Language | Unknown | + + + | Marital Status | Single | + + + | Buddhist Affiliation | NON | + + + | Race | Black or | + + + | Ethnic Group | Not or | + + + Author + + + | Author | [facility] | + + + | Organization | [facility] | + + + | Address | Unknown | + + + | Phone | Unavailable | + + + Support + + + + + | Name | Relationship | Address | Phone | + + + + + | [facility] | ECON | [address] | | | Center | | [place] | | | | | [address] | | + + + + + Care Team Providers + +------+ + | Care Physical Chemist Name | Role | Phone | + [...] 04/22/ | Refill | [facility] | Michelle Santos | Refill Request | | 2015 | | [place]/[facility] | MD [address] | | | | | ogy at [facility] [address] | [address] | | | | | [address] [facility] for | [place], [place] | | | | | Health and Healing, | [address] | | | | | [facility] | [phone] | | | | | Floor [place], [place] | | | | | | [address] | | | | | | [phone] | | | +--------+--------+ + + + [...]
--- OUTSIDE RECORDS SUMMARY | ~2020-01-26 | XMS | Clinical Summary ---
Demographics + + + | Address | [address] | | | [place] [address] | + + + | Home Phone | | + + + | Preferred Language | Unknown | + + + | Marital Status | Single | + + + | Judaism Affiliation | Unknown | + + + | Race | Unknown | + + + | Ethnic Group | Unknown | + + + Author + + + | Author | [facility] | | | and [place] | + + + | Organization | [facility] | | | and [place] | + + + | Address | Unknown | + + + | Phone | Unavailable | + + + Care Team Providers + +------+ + | Care Information Security Name | Role | Phone | + +------+ + | Sharonda Green NP | PCP | | + +------+ + Allergies Not on File Medications Not on file Active Problems Not on file Social History + +-------+ +--------+------+ | Tobacco [...] | Blood Pressure | 86/60 | 02/27/2016 11:18 AM | | | | | PDT | | + + + + + | Pulse | 88 | 02/27/2016 11:18 AM | | | | | PDT | | + + + + + | Temperature | - | - | | + + + + + | Respiratory Rate | 17 | 02/27/2016 11:18 AM | | | | | PDT | | + + + + + | Oxygen Saturation | - | - | | + + + + + | Inhaled Oxygen | - | - | | | Concentration | | | | + + + + + | Weight | 61.7 kg (136 lb) | 02/27/2016 11:18 AM | | | | | PDT | | + + + + + | Height | 152.4 cm (5') | 02/27/2016 11:18 AM | | | | | PDT | | + + + + + | Body Mass Index | 26.56 | 02/27/2016 11:18 AM | | | | | PDT | | + + + + + Plan of Treatment + + +-------+ + | Health Maintenance | Due Date | Last | Comments | | | | Done | | + + +-------+ + | Vaccine: | | | | | Dtap/Tdap/Td (1 - | 7 | | | | Tdap) | | | | + + +-------+ + | Vaccine: Zoster (1 | | | | | of 2) | 8 | | | + + +-------+ + | Vaccine: Influenza | | | | | (#1) | 0 | | | + + +-------+ + Results Not on filefrom Last 3 Months"
--- OUTSIDE RECORDS SUMMARY | ~2020-01-26 | XMS | Encounter Summary ---
Demographics + + + | Address | [address] [place] [address] [address] | | | [place] [address] | + + + | Home Phone | | + + + | Preferred Language | Unknown | + + + | Marital Status | Single | + + + | Hinduism Affiliation | NON | + + + [...] [place] | | | | | [address] | | + + + + + Care Team Providers + +------+ + | Care Payloader Machine Operator Name | Role | Phone [...] both | | 2016 | Visit | [place]/[facility]hthalmol | ,PhD [address] | eyes (Primary Dx); | | | | ogy at [facility] [address] | Atopic | | | | [address] [facility] for | [address] [place], [place] | keratoconjunctivitis | | | | Health and Healing, | [phone] | ; Down's syndrome | | | | | | | | | | Floor [place], [place] | | | | | | [address] | | | | | | [phone] | | | +--------+---------+ + + + [...] in the resident s note. Lana Anthony Stylist Apprentice, Ophthalmology [address], [address]th [place] [address] iRohit munguia MD,Ph D - 10/12/2015 2:51 PM PDT COMPREHENSIVE OPHTHALMOLOGY PROGRESS NOTE Assessment and Plan: Exam Date: 10/12/2015 Patient:Isac Sanford ([id number]) Impression: Apical corneal scarring, both eyes - [...] appt Rohit Chauhan MD, PhD Ophthalmology Resident [facility] Pt seen with Dr. Anthony today. Physician: Rohit Chauhan MD 10/12/2015 HPI: Isac Sanford ([id number]), 59 y.o. year old male from [place] : Patient presents w ith: Medical Eye [...] scanned intake form or preadmission data in [facility] for full Family ocular and medical his tory. Allergies: has No Known Allergies. Medications: Current Outpatient Prescriptions Medication Sig ACETAMINOPHEN 650 MG TAB take 1 tablet (650mg) by oral route every 4 hours as needed [id number] OR sprinkle 1/4 tsp on breakfast ASPIRIN [...]
--- OUTSIDE RECORDS SUMMARY | ~2020-01-26 | XMS | Encounter Summary ---
Demographics + + + | Address | [address] [place] [address] [place] | | | [place] [address] | + + + | Home Phone | | + + + | Preferred Language | Unknown | + + + | Marital Status | Single | + + + | Adventism Affiliation | NON | + + + | Race | Black or | + + + | Ethnic Group | Not or | + + + Author + + + | Author | [facility] | + + + | Organization | [facility] | + + + | Address | Unknown | + + + | Phone | Unavailable | + + + Support + + + + + | Name | Relationship | Address | Phone | + + + + + | [facility] | ECON | [address] | | | Center | | [place] | | | | | [address] | | + + + + + Care Team Providers + +------+ + | Care Composition Mixer Name | Role | Phone | + [...] Refill Request | | 2017 | | [place]/[facility]hthalmol | | | | | | yijoyce at H [address] | | | | | | [address] [facility] | | | | | | Health and Healing, | | | | | | [facility] | | | | | | [place], [place] | | | | | | [address] | | | | | | [phone] | | | +--------+--------+ + + + [...]
--- OUTSIDE RECORDS SUMMARY | ~2020-01-26 | XMS | Encounter Summary ---
Demographics + + + | Address | [address] [place] [address] [place] Boswell | | | [place] [address] | + + + | Home Phone | | + + + | Preferred Language | Unknown | + + + | Marital Status | Single | + + + | Rastafarian Affiliation | NON | + + + | Race | Black or | + + + | Ethnic Group | Not or | + + + Author + + + | Author | [facility] | + + + | Organization | [facility] | + + + | Address | Unknown | + + + | Phone | Unavailable | + + + Support + + + + + | Name | Relationship | Address | Phone | + + + + + | [facility] | ECON | [address] | | | Center | | [place] | | | | | [address] | | + + + + + Care Team Providers + +------+ + | Care Wildlife Removal Specialist Name | Role | Phone | + +------+ + | Moon Alarcon DO | PCP | | + +------+ + Reason for Visit +--------+ + | Reason | Comments | +--------+ + | Other | | +--------+ + Encounter Details +--------+ + + + + | Date | Type | Department | Care Team | Description | +--------+ + + + + | 03/14/ | Telephone | Cardiology General | Ariel Gonzalez S, | Other | | 2006 | | at [facility] [address] | MD [address] | | | | | Ave [facility] | [place], [place] | | | | | Health and Healing, | [address] | | | | | [facility] | [phone] | | | | | Floor [place], [place] | | | | | | [address] | | | | | | [phone] | | | +--------+ + + + [...]
--- OUTSIDE RECORDS SUMMARY | ~2020-01-26 | XMS | Encounter Summary ---
Demographics + + + | Address | [address] [place] [address] [place] Boswell | | | [place] [address] | + + + | Home Phone | | + + + | Preferred Language | Unknown | + + + | Marital Status | Single | + + + | Mu-Ism Affiliation | NON | + + + | Race | Black or | + + + | Ethnic Group | Not or | + + + Author + + + | Author | [facility] | + + + | Organization | [facility] | + + + | [...] [place] | | | | | [address] | | + + + + + Care Team Providers + +------+ + | Care Clerical Adjudicator Name | Role | Phone | + +------+ + | Moon Alarcon DO | PCP | | + +------+ + Encounter Details +--------+ + + + + | Date | Type | Department | Care Team | Description | +--------+ + + + + | 11/21/ | Results/Int | [facility] | Wallace Farah | Corneal scar | | 2016 | erpretation | [facility] | E MD Leo [address] | (Primary Dx) | | | | Lelia Mulligan [address] | Trin[address]ramer | | | | | [address] | [place], [place] | | | | | Eye [place], [facility] | [address] | | | | | [facility], [place] | [phone] | | | | | [address] | [...] PM Luly Sanford was seen in the [facility]Ultrasound Department today, 11/22/2015, for ultrasound. B-scan [...]
--- OUTSIDE RECORDS SUMMARY | ~2020-01-26 | XMS | Encounter Summary ---
Demographics + + + | Address | [address] [place] [address] [place] Boswell | | | [place] [address] | + + + | Home Phone [...] [place] | | | | | [address] | | + + + + + Care Team Providers + +------+ + | Care Gasoline Engine Inspector Name | Role | Phone | + +------+ + | oMon Alarcon DO | PCP | | + [...] Scan | | 2015 | Visit | [place] | | (OU) | | | | Photography at | | | | | | [facility] [address] | | | | | [address] | | | | | | Eye [place], [facility] | | | | | | floor [place], [place] | | | | | | [address] | | | +--------+ + + + [...] + + documented as of this encounter Yamilet Zimmer - 11/22/2015 5:07 PM PDTUltrasound-Ultrasound - B [...]
--- OUTSIDE RECORDS SUMMARY | ~2020-01-26 | XMS | Encounter Summary ---
Demographics + + + | Address | [address] [place] [address] [place] Boswell | | | [place] [address] | + + + | Home Phone | | + + + | Preferred Language | Unknown | + + + | Marital Status | Single | + + + | Gnosticism Affiliation | NON | + + + | Race | Black or | + + + | Ethnic Group | Not or | + + + Author + + + | Author | [facility] | + + + | Organization | [facility] | + + + | Address | Unknown | + + + | Phone | Unavailable | + + + Support + + + + + | Name | Relationship | Address | Phone | + + + + + | [facility] | ECON | [address] | | | Center | | [place] | | | | | [address] | | + + + + + Care Team Providers + +------+ + | Care Loan Service Officer Name | Role | Phone | [...] Scan | | 2015 | Visit | [place] | | ([place]) | | | | Photography at | | | | | | [facility] [address] | | | | [address] | | | | | | Eye [place], [facility] | | | | | | floor [place], [place] | | | | | | [address] | | | +--------+ + + + [...]
--- OUTSIDE RECORDS SUMMARY | ~2020-01-26 | XMS | Encounter Summary ---
Demographics + + + | Address | [address] [place] [address] [place] Boswell | | | [place] [address] | + + + | Home Phone | | + + + | Preferred Language | Unknown | + + + | Marital Status | Single | + + + | Oriental Orthodox Affiliation | NON | + + + | Race | Black or | + + + | Ethnic Group | Not or | + + + Author + + + | Author | [facility] | + + + | Organization | [facility] | + + + | Address | Unknown | + + + | Phone | Unavailable | + + + Support + + + + + | Name | Relationship | Address | Phone | + + + + + | [facility] | ECON | [address] | | | Center | | [place] | | | | | [address] | | + + + + + Care Team Providers + +------+ + | Care Diaper Machine Tender Name | Role | Phone | + [...] | | | | | HOSPITAL | [place], [place] | | | | | | [address] | [address] | | | | | | [address] | Phone: | | | | | | [place] | [phone] | | | | | | [address] | Fax: | | | | | | Phone: | [phone] | | | | | | [phone] | | | | | | | Fax: | | | | | | | [phone] | | +--------+--------+ + + + + Encounter Details +--------+---------+ + + + | Date | Type | Department | Care Team | Description | +--------+---------+ + + + | 09/09/ | Office | Cardiology [facility] at | Ariel Gonzalez S, | Atrioventricular | | 2006 | Visit | [facility] [address] | MD [address] | Canal Type | | | | Ave Center for | [place], [place] | Ventricular Septal | | | | Health and [facility], | [address] | Defect (Primary Dx); | | | | | [phone] | Congenital Anomaly | | | | Floor [place], [place] | | of Heart | | | | [address] | | | | | | [phone] | | | +--------+---------+ + + + [...] New patient consultation and Congenital heart di [facility] PCP: MOON RAMIREZ DO Referring: Moon Ramirez [...] operative repair . (Dr. Phil Fitzgerald in [place], and Dr. Julito West from cardiothoracic surgery) [...] SILVER TAB one tab by mouth daily [id number]-[id number] OR sprinkle 1/4 tsp on breakfast METFORMIN [...] echocardiogram, became more combative and spit on lever operator. Walk Test: Asked pt to walk [...] a major way. It may reduce the retirement risk of heart failure, cyanosis, or arrhythmia, [...] offer him a catheterization to start. The joint terminal attack controller issues to follow will be ventricular function, development of arrhythmia, and avoidance of endocarditis. He is already edentulous. We discussed some of these issues to day. Ordinarily Isac should have a yearly visit with a commercial decorator. I spoke with Dr. 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
--- OUTSIDE RECORDS SUMMARY | ~2020-01-26 | XMS | Encounter Summary ---
Demographics + + + | Address | [address] [place] [address] [place] Boswell | | | [place] [address] | + + + | Home Phone [...] + | [facility] | ECON | [address] | | | Center | | [place] | | | | | [address] | | + + + + + Care Team Providers + +------+ + | Care Nut Orchardist Name | Role | Phone | + [...] | | 2006 | | at [facility] [address] | MD [address] | | | | | Ave [facility] | [place], [place] | | | | | Health and Healing, | [address] | | | | | [facility] | [phone] | | | | | Floor [place], [place] | | | | | | [address] | | | | | | [phone] | | | +--------+ + + + [...]
--- OUTSIDE RECORDS SUMMARY | ~2020-01-26 | XMS | Encounter Summary ---
Demographics + + + | Address | [address] | | | [place] [address] | + + + | Home Phone | | + + + | Preferred Language | Unknown | + + + | Marital Status | Single | + + + | Sabianism Affiliation | Unknown | + + + | Race | Unknown | + + + | Ethnic Group | Unknown | + + + Author + + + | Author | [facility] | | | and [place] | + + + | Organization | [facility] | | | and [place] | + + + | Address | Unknown | + + + | Phone | Unavailable | + + + Care Team Providers + +------+ + | Care Publications Writer Name | Role | Phone | + +------+ + PCP | Unavailable | + +------+ + Encounter Details +--------+ + + + + | Date | Type | Department | Care Team | Description | +--------+ + + + + | 09/10/ | Hospital | [facility] | Oliver-Cattaneo, | Cor Athrscl-Uns | | 2006 | Encounter | CONVERSION [address] | MD [address] | Vessel | | | | [address] | [facility] [address] | | | | | [place], [place] | [place] [address] | | | | | [address] | [phone] | | | | | [phone] | | | +--------+ + + + [...] Coronary atherosclerosis of unspecified type of vessel, ramona or graft | + + documented in this encounter"
--- OUTSIDE RECORDS SUMMARY | ~2020-01-26 | XMS | Encounter Summary ---
Demographics + + + | Address | [address] [place] [address] [place] | | | [place] [address] | + + + | Home Phone | | + + + | Preferred Language | Unknown | + + + | Marital Status | Single | + + + | Judaism Affiliation | NON | + + + [...] | + + + + + | [facility] | ECON | [address] | | | Center | | [place] | | | | | [address] | | + + + + + Care Team Providers + +------+ + | Care Hair Blender Name | Role | Phone | + [...] Refill Request | | 2015 | | [place]/Ophthalmol | MD Alexsander [address] | | | | | ogy at [facility] [address] | [address] | | | | | [address] [facility] | [place], [place] | | | | | Health and Healing, | [address] | | | | | [facility] | [phone] | | | | | Floor [place], [place] | | | | | | [address] | | | | | | [phone] | | | +--------+--------+ + + + [...]
--- OUTSIDE RECORDS SUMMARY | ~2020-01-26 | XMS | Clinical Summary ---
Demographics + + + | Address | [address] [place] [address] [place] Boswell | | | [place] [address] | + + + | Home Phone | | + + + | Preferred Language | Unknown | + + + | Marital Status | Single | + + + | Jehovah'S Witness Affiliation | NON | + + + [...] + + + + + | [facility] | ECON | [address] | | | Center | | [place] | | | | | [address] | | + + + + + Care Team Providers + +------+ + | Care Blacksmith Apprentice Name | Role | Phone | + +------+ + | Moon Alarcon DO | PCP | | + +------+ + Source Comments S[facility] is fully live on both [facility] Allergies + + + + + [...] | | | + +--------+ +--------+-------+---------+--------+ | CONTROLLER INSTRUCTOR MEDICAID | CONTROLLER INSTRUCTOR | xxxxxxxx | | | | Medica [...] laz | | | 4 (Home) | [id number] | + +--------+ +--------+ + +"
--- OUTSIDE RECORDS SUMMARY | ~2020-01-26 | XMS | Encounter Summary ---
Demographics + + + | Address | [address] [place] [address] [place] | | | [place] [address] | + + + | Home Phone [...] [place] | | | | | [address] | | + + + + + Care Team Providers + +------+ + | Care Washing Machine Striper Name | Role | Phone | + [...] 10/22/ | Refill | [facility] | Padma Smith | Refill Request | | 2017 | | [place]/Ophthalmol | MD [place] | | | | | yijoyce at [facility] [address] | | | | | | [address] [facility] | | | | | | Health and Healing, | | | | | | [facility] | | | | | | Floor [place], [place] | | | | | | [address] | | | | | | [phone] | | | +--------+--------+ + + + [...]
--- OUTSIDE RECORDS SUMMARY | ~2020-01-26 | XMS | Encounter Summary ---
Demographics + + + | Address | [address] [place] [address] [place] | | | [place] [address] | + + + | Home Phone | | + + + | Preferred Language | Unknown | + + + | Marital Status | Single | + + + | Yazdanism Affiliation | NON | + + + [...] + + + + + | [facility] | ECON | [address] | | | Center | | [place] | | | | | [address] | | + + + + + Care Team Providers + +------+ + | Care Timber Watchman Name | Role | Phone | + +------+ + PCP | Unavailable | + +------+ + Encounter Details +--------+ + + + + | Date | Type | Department | Care Team | Description | +--------+ + + + + | 09/10/ | Results | | Other, Faculty | | | 1993 | Only | | [phone] | | +--------+ + + + + [...] | | + +---------+ + + | [facility] DEPARTMENT OF | | | | [...] | | + +---------+ + + | [facility] DEPARTMENT | | | | | RADIOLOGY | | | | + +---------+ + + documented in this encounter Visit Diagnoses Not on filedocumented in this encounter"
--- OUTSIDE RECORDS SUMMARY | ~2020-01-26 | XMS | Encounter Summary ---
Demographics + + + | Address | [address] [place] [address] [place] Bos[address] | | | [place] [address] | + + + | Home Phone | | + + + | Preferred Language | Unknown | + + + | Marital Status | Single | + + + | Anabaptism Affiliation | NON | + + + [...] + + + + | [facility] | ECON | [address] | | | Center | | [place] | | | | | [address] | | + + + + + Care Team Providers + +------+ + | Care Security Assistant Name | Role | Phone | + [...] | | | | | | DO [place] | [place] | | | | | | [facility] | Cataract and | | | | | | HOSP[facility] | Laser | | | | | | [address] | [place] | | | | | | [address] | [address] | | | | | | TK [place] | [address] | | | | | | [address] | [address] | | | | | | Phone: | [place], [place] | | | | | | [phone] | [address] Phone: | | | | | | Fax: | [phone] | | | | | | [phone] | | +--------+--------+ + + + + Encounter Details +--------+---------+ + + + | Date | Type | Department | Care Team | Description | +--------+---------+ + + + | 11/21/ | Office | [facility] | Anthony Flores | Corneal scars, both | | 2016 | Visit | [place] [facility] at | MD Jennifer Macedo | eyes (Primary Dx) | | | | [facility] [address] | Cataract and Laser | | | | | [address] | [place] [address] | | | | | Eye [place], 4th | [facility] [address] | | | | | floor [place], [place] | [place] [address] | | | | | [address] | [phone] | | +--------+---------+ + + + Social [...] diffic ult to examine. History from medical safety director who has accompanied the patient - he [...] no glasses. 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 Observe, refer to medical team at [facility] to determine if they would like to [...]
--- OUTSIDE RECORDS SUMMARY | ~2020-01-26 | XMS | Encounter Summary ---
Demographics + + + | Address | [address] [place] [address] [address] | | | [place] [address] | + + + | Home Phone | | + + + | Preferred Language | Unknown | + + + | Marital Status | Single | + + + | Congregational Affiliation | NON | + + + | Race | Black or | + + + | Ethnic Group | Not or | + + + Author + + + | Author | [facility] | + + + | Organization | [facility] | + + + | Address | Unknown | + + + | Phone | Unavailable | + + + Support + + + + + | Name | Relationship | Address | Phone | + + + + + | [facility] | ECON | [address] | | | Center | | [place] | | | | | [address] | | + + + + + Care Team Providers + +------+ + | Care Can Tester Name | Role | Phone | + [...] Refill Request | | 2017 | | [place]/Ophthalmol | MD [place] | | | | | yijoyce at [facility] [address] | | | | | [address] [facility] | | | | | | Health and Healing, | | | | | | [facility] | | | | | | Floor [place], [place] | | | | | | [address] | | | | | | [phone] | | | +--------+--------+ + + + [...]
[2020-01-26] MEDS ORDERED: CICLOPIROX100 GM TOP (11:04)
== END 2020-01-26 14:03 | disposition home or self-care (01) ==
LOC: ED 10:41
DX: R79.9 Abnormal finding of blood chemistry, unspecified (principal); R60.0 Localized edema; I11.0 Hypertensive heart disease with heart failure; I50.9 Heart failure, unspecified; E11.40 Type 2 diabetes mellitus with diabetic neuropathy, unspecified; E78.5 Hyperlipidemia, unspecified; F43.10 Post-traumatic stress disorder, unspecified; Z88.8 Allergy status to other drugs, medicaments and biological substances; Z79.899 Other long term (current) drug therapy; Z79.84 Long term (current) use of oral hypoglycemic drugs; Z79.82 Long term (current) use of aspirin
CPT/HCPCS: 71260; 80053; 85025; 93971; 99284-25; J7040; Q9967

== ENCOUNTER 2020-02-19 15:49 | Emergency (ER) | payer MEDICARE, OTHER ==
[~2020-02-19] VITALS: Ht 154.9 cm; Wt 68.0 kg
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
--- OUTSIDE RECORDS SUMMARY | ~2020-02-19 | XMS | Encounter Summary ---
Demographics + + + | Address | [address] [place] [address] [place] [address] | | | [place] [address] | + + + | Home Phone [...] Author + + + | Author | [facility] | + + + | Organization | [facility] | + + + | Address | Unknown | + + + | Phone | Unavailable | + + + Support + + + + + | Name | Relationship | Address | Phone | + + + + + | [facility] | ECON | [address] | | | Center | | [place] | | | | | [address] | | + + + + + Care Team Providers + +------+ + | Care Concrete Finishing Machine Operator Name | Role | Phone | + +------+ + | Moon Alarcon DO | PCP | | + +------+ + Encounter Details +--------+ + + + + | Date | Type | Department | Care Team | Description | +--------+ + + + + | 11/21/ | Results/Int | [facility] | Wallace Farah | Corneal scar | | 2016 | erpretation | [facility] | E MD Leo [address] | (Primary Dx) | | | | Lelia Mulligan [address] | Trin[address]ramer | | | | | [address] | [place], [place] | | | | | [facility] | [address] | | | | | [facility], [place] | [phone] | | | | | [address] | | | +--------+ + + + [...] documented as of this encounter Progress Notes Yamilet Hunt - 11/22/2015 4:58 PM Pieropeter Sanford was seen in the [facility] today, 11/22/2015, for ultrasound. B-scan of both eyes due to corneal scarring. B-scan of the right eye reveals a long eye, 27 .7mm with a dense cataract, deep AC, mild vitreous debris and thickened macula. The retina is attached. B-scan of the left eye reveals a deep AC, dense cataract and irregular optic ne rve head, possible coloboma and the retina is attached. Approximate AEL OS is 27.3mm. No mas ses were imaged OU. This is a Preliminary Report. It is the responsibility of the ordering physician to determi ne clinical care from image provided, or wait for official report. THONG Zaman I have reviewed the images and the initial report and I have made any necessary changes to the report as needed based on my assessment. WALLACE FARAH MD documented in this encounter Plan of Treatment Not on filedocumented as of this encounter Visit Diagnoses + + | Diagnosis | + + | Corneal scar - Primary Corneal opacity, unspecified | + + documented in this encounter"
--- OUTSIDE RECORDS SUMMARY | ~2020-02-19 | XMS | Encounter Summary ---
Demographics + + + | Address | [address] | | | [place] [address] | + + + | Home Phone | | + + + | Preferred Language | Unknown | + + + | Marital Status | Single | + + + | Latter-Day Affiliation | Unknown | + + + | Race | Black or | + + + | Ethnic Group | Not or | + + + Author + + + | Author | [facility] | | | and [place] | + + + | Organization | [facility] | | | and [place] | + + + | Address | Unknown | + + + | Phone | Unavailable | + + + Care Team Providers + +------+ + | Care Director Of Materials Management Name | Role | Phone | + +------+ + PCP | Unavailable | + +------+ + Encounter Details +--------+ + + + + | Date | Type | Department | Care Team | Description | +--------+ + + + + | 09/10/ | Hospital | [facility] | Oliver-Cattaneo, | Cor Athrscl-Uns | | 2006 | Encounter | CONVERSION [address] | [address] | Vessel | | | | [address] | [facility] [address] | | | | | [place], [place] | [place] [address] | | | | | [address] | [phone] | | | | | [phone] | | | +--------+ + + + [...] + | Diagnosis | + + | Coronary atherosclerosis of unspecified type of vessel, bois forte or graft | + + documented in this encounter"
--- OUTSIDE RECORDS SUMMARY | ~2020-02-19 | XMS | Encounter Summary ---
Demographics + + + | Address | [address] [place] [address] [address] | | | [place] [address] | + + + | Home Phone | | + + + | Preferred Language | Unknown | + + + | Marital Status | Single | + + + | Hindu Affiliation | NON | + + + | Race | Black or | + + + | Ethnic Group | Not or | + + + Author + + + | Author | [facility] | + + + | Organization | [facility] | + + + | Address | Unknown | + + + | Phone | Unavailable | + + + Support + + + + + | Name | Relationship | Address | Phone | + + + + + | [facility] | ECON | [address] | | | Center | | [place] | | | | | [address] | | + + + + + Care Team Providers + +------+ + | Care Craft Superintendent Name | Role | Phone | + [...] Refill Request | | 2015 | | [place]/Ophthalmol | MD [address] | | | | | danelle at [facility] [address] | [address] | | | | | [address] [facility] for | [place], [place] | | | | | Health and Healing, | [address] | | | | | [facility] | [phone] | | | | | Floor [place], [place] | | | | | | [address] | | | | | | [phone] | | | +--------+--------+ + + + [...]
--- OUTSIDE RECORDS SUMMARY | ~2020-02-19 | XMS | Encounter Summary ---
Demographics + + + | Address | [address] [place] [address] [place] | | | [place] [address] | + + + | Home Phone | | + + + | Preferred Language | Unknown | + + + | Marital Status | Single | + + + | Alevism Affiliation | NON | + + + | Race | Black or | + + + | Ethnic Group | Not or | + + + Author + + + | Author | [facility] | + + + | Organization | [facility] | + + + | Address | Unknown | + + + | Phone | Unavailable | + + + Support + + + + + | Name | Relationship | Address | Phone | + + + + + | [facility] | ECON | [address] | | | Center | | [place] | | | | | [address] | | + + + + + Care Team Providers + +------+ + | Care Commercial Account Officer Name | Role | Phone | + [...] both | | 2016 | Visit | [place]/[facility]hthalmol | ,PhD [address] | eyes (Primary Dx); | | | | ogy at [facility] [address] | Atopic | | | | [address] [facility] for | [address] [place], [place] | keratoconjunctivitis | | | | Health and Healing, | [id number] | ; Down's syndrome | | | | | | | | | | Floor [place], [place] | | | | | | [address] | | | | | | [phone] | | | +--------+---------+ + + + [...] in the resident s note. Lana Anthony Filter Tank Tender, Ophthalmology [facility] [place] [address] [place] [address], [address] [place] [address] iezra, Rohit Perdomo MD,Ph D - 10/12/2015 2:51 PM PDT COMPREHENSIVE OPHTHALMOLOGY PROGRESS NOTE Assessment and Plan: Exam Date: 10/12/2015 Patient:Isac Sanford ([id number]) Impression: Apical corneal scarring, both eyes - [...] appt Rohit Chauhan MD, PhD Ophthalmology Resident [facility] Pt seen with Dr. Anthony today. Physician: Rohit Chauhan MD 10/12/2015 HPI: Isac Sanford ([id number]), 59 y.o. year old male from [place] : Patient presents w ith: Medical Eye [...] scanned intake form or preadmission data in [facility] for full Family ocular and medical his tory. Allergies: has No Known Allergies. Medications: Current Outpatient Prescriptions Medication Sig ACETAMINOPHEN 650 MG TAB take 1 tablet (650mg) by oral route every 4 hours as needed [id number] OR sprinkle 1/4 tsp on breakfast ASPIRIN [...] Rohit Chauhan MD documented in this encounter Miscellaneous Notes Addendum Note - Rohit Chauhan MD,PhD - 10/12/2015 4:43 PM PDT Addended by: Hellen CHAUHAN MD AVIHellen on: 10/12/2015 04:43 PM Modules accepted: Orders, SmartSet documented in t his encounter Plan of Treatment + + +--------+ [...]
--- OUTSIDE RECORDS SUMMARY | ~2020-02-19 | XMS | Encounter Summary ---
Demographics + + + | Address | [address] [place] [address] [address] | | | [place] [address] | + + + | Home Phone [...] + + + + + | [facility] | ECON | [address] | | | Center | | [place] | | | | | [address] | | + + + + + Care Team Providers + +------+ + | Care Blow Off Worker Name | Role | Phone | + +------+ + PCP | Unavailable | + +------+ + Encounter Details +--------+ + + + + | Date | Type | Department | Care Team | Description | +--------+ + + + + | 09/10/ | Results | | Other, Faculty | | | 1993 | Only | | [phone] | | +--------+ + + + + [...] | | + +---------+ + + | [facility] DEPARTMENT OF | | | | | [...] | | + +---------+ + + | [facility] DEPARTMENT OF | | | | | RADIOLOGY | | | | + +---------+ + + documented in this encounter Visit Diagnoses Not on filedocumented in this encounter"
--- OUTSIDE RECORDS SUMMARY | ~2020-02-19 | XMS | Clinical Summary ---
Demographics + + + | Address | [address] | | | [place] [address] | + + + | Home Phone | | + + + | Preferred Language | Unknown | + + + | Marital Status | Single | + + + | Scientology Affiliation | Unknown | + + + | Race | Black or | + + + | Ethnic Group | Not or | + + + Author + + + | Author | [facility] | | | and [place] | + + + | Organization | [facility] | | | and [place] | + + + | Address | Unknown | + + + | Phone | Unavailable | + + + Care Team Providers + +------+ + | Care Manager Health Name | Role | Phone | + [...]
--- OUTSIDE RECORDS SUMMARY | ~2020-02-19 | XMS | Encounter Summary ---
Demographics + + + | Address | [address] [place] [address] [address] | | | [place] [address] | + + + | Home Phone | | + + + | Preferred Language | Unknown | + + + | Marital Status | Single | + + + | Denominational Affiliation | NON | + + + | Race | Black or | + + + | Ethnic Group | Not or | + + + Author + + + | Author | [facility] | + + + | Organization | [facility] | + + + | Address [...] [place] | | | | | [address] | | + + + + + Care Team Providers + +------+ + | Care Mounter Flutes And Piccolos Name | Role | Phone | + +------+ + | Moon Alarcon DO | PCP | | + +------+ + Reason for Visit + +--------+ + | Reason | Onset | Comments | | | Date | | + +--------+ + | Refill Request | 07/04/ | | | | 2018 | | + +--------+ + Encounter Details +--------+--------+ + + + | Date | Type | Department | Care Team | Description | +--------+--------+ + + + | 07/04/ | Refill | [facility] | Jefe Suarez, | Refill Request | | 2017 | | [place]/[facility]hthalmol | | | | | | danelle at [facility] [address] | | | | | | [address] [facility] | | | | | | Health and Healing, | | | | | | Building | | | | | | Floor [place], [place] | | | | | | [address] | | | | | | [phone] | | | +--------+--------+ + + + [...]
--- OUTSIDE RECORDS SUMMARY | ~2020-02-19 | XMS | Encounter Summary ---
Demographics + + + | Address | [address] [place] [address] [address] Bos[address] | | | [place] [address] | + + + | Home Phone | | + + + | Preferred Language | Unknown | + + + | Marital Status | Single | + + + | Mandaeism Affiliation | NON | + + + | Race | Black or | + + + | Ethnic Group | Not or | + + + Author + + + | Author | [facility] | + + + | Organization | [facility] | + + + | Address | Unknown | + + + | Phone | Unavailable | + + + Support + + + + + | Name | Relationship | Address | Phone | + + + + + | [facility] | ECON | [address] | | | Center | | [place] | | | | | [address] | | + + + + + Care Team Providers + +------+ + | Care Legal Instructor Name | Role | Phone | + +------+ + | Moon Alarcon DO | PCP | | + +------+ + Reason for Visit + + + | Reason | Comments | + + + | Ultrasound - B Scan | OU | + + + Encounter Details +--------+ + + + + | Date | Type | Department | Care Team | Description | +--------+ + + + + | 11/21/ | Diagnostic | [facility] | | Ultrasound - B Scan | | 2015 | Visit | [place] | | (OU) | | | | Photography at | | | | | | [facility] [address] | | | | | [address] | | | | | | Eye [place], [facility] | | | | | | floor [place], [place] | | | | | | [address] | | | +--------+ + + + [...] + documented as of this encounter Progress Yamilet Gage - 11/22/2015 5:07 PM PDTUltrasound-Ultrasound - B Scan - OU was performed. Interpretation for the above study can be found in Dr. Wallace Farah s results interpretation encounter on 11/22/2015.Electronically signed by Yamilet Hunt at 5:07 PM PDTdocumented in this encounter Plan of Treatment Not on filedocumented as of this encounter Visit Diagnoses + + | Diagnosis | + + | Corneal scars, both eyes Corneal opacity, unspecified | + + documented in this encounter"
--- OUTSIDE RECORDS SUMMARY | ~2020-02-19 | XMS | Encounter Summary ---
Demographics + + + | Address | [address] [place] [address] [place] [address] | | | [place] [address] | + + + | Home Phone [...] + + | Author | [facility] | + + + | Organization | [facility] | + + + | Address | Unknown | + + + | Phone | Unavailable | + + + Support + + + + + | Name | Relationship | Address | Phone | + + + + + | [facility] | ECON | [address] | | | Center | | [place] | | | | | [address] | | + + + + + Care Team Providers + +------+ + | Care Lead Athlete Name | Role | Phone | + [...] | Registratio | [address] | [address] | | | | n | [address]iles Mailcode: RPB07 | [place], [place] | | | | | [place], [place] | [address] | | | | | [address] | [phone] | | | | | [phone] | | | +--------+ + + + [...]
--- OUTSIDE RECORDS SUMMARY | ~2020-02-19 | XMS | Encounter Summary ---
Demographics + + + | Address | [address] [place] [address] [place] | | | [place] [address] | + + + | Home Phone | | + + + | Preferred Language | Unknown | + + + | Marital Status | Single | + + + | Jew Affiliation | NON | + + + | Race | Black or | + + + | Ethnic Group | Not or | + + + Author + + + | Author | [facility] | + + + | Organization | [facility] | + + + | Address | Unknown | + + + | Phone | Unavailable | + + + Support + + + + + | Name | Relationship | Address | Phone | + + + + + | [facility] | ECON | [address] | | | Center | | [place] | | | | | [address] | | + + + + + Care Team Providers + +------+ + | Care Cake Puller Name | Role | Phone | + [...] [address] | | | | | e [facility] | [place], [place] | | | | | Health and Healing, | [address] | | | | | [facility] | [phone] | | | | | Floor [place], [place] | | | | | | [address] | | | | | | [phone] | | | +--------+ + + + [...] call and clarify. 's cell phone is [phone]. Office number is ext. [phone], may also leave a message with assist. Devika at ext [phone] documented in this encounter Plan of Treatment Not on filedocumented as of this encounter Visit Diagnoses Not on filedocumented in this encounter"
--- OUTSIDE RECORDS SUMMARY | ~2020-02-19 | XMS | Encounter Summary ---
Demographics + + + | Address | [address] [place] [address] [address] | | | [place] [address] | + + + | Home Phone | | + + + | Preferred Language | Unknown | + + + | Marital Status | Single | + + + | Anabaptist Affiliation | NON | + + + [...] + + + + + | [facility] | ECON | [address] | | | Center | | [place] | | | | | [address] | | + + + + + Care Team Providers + +------+ + | Care Linoleum Tile Floor Layer Name | Role | Phone | + [...] | | | | | | [facility] [place] [facility] [place] | | | | | | [facility] | [facility] | | | | | | [facility] | Laser | | | | | | [address] | [place] | | | | | | [address] | [address] | | | | | | [address] [place] | [address] | | | | | | [address] | [address] | | | | | | Phone: | [place], [place] | | | | | | [phone] | [address] Phone: | | | | | | Fax: | [phone] | | | | | | [phone] | | +--------+--------+ + + + + Encounter Details +--------+---------+ + + + | Date | Type | Department | Care Team | Description | +--------+---------+ + + + | 11/21/ | Office | [facility] | Anthony Flores | Corneal scars, both | | 2016 | Visit | [place] [facility] at | MD Jennifer Macedo | eyes (Primary Dx) | | | | [facility] [address] | Cataract and Laser | | | | | [address] | [place] [address] | | | | | Eye [place], [address]th | [facility] [address] | | | | | floor [place], [place] | [place] [address] | | | | | [address] | [phone] | | +--------+---------+ + + + Social [...] diffic ult to examine. History from medical equipment technician who has accompanied the patient - [...] no glasses. 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
--- OUTSIDE RECORDS SUMMARY | ~2020-02-19 | XMS | Clinical Summary ---
Demographics + + + | Address | [address] [place] [address] [address] | | | [place] [address] | + + + | Home Phone | | + + + | Preferred Language | Unknown | + + + | Marital Status | Single | + + + | Gnosticist Affiliation | NON | + + + [...] + + + + + | [facility] | ECON | [address] | | | Center | | [place] | | | | | [address] | | + + + + + Care Team Providers + +------+ + | Care Crisis Nurse Name | Role | Phone | + +------+ + | Moon Alarcon DO | PCP | | + +------+ + Source Comments SON is fully [facility] Allergies + + + + + [...] | 9 | | | + + +-------+ + [...] | | | + +--------+ +--------+-------+---------+--------+ | PACKING LINE OPERATOR MEDICAID | PACKING LINE OPERATOR | [id number] | | | | Medica | | [...] | | al/Fam | | 1956 | [phone] | [place] | | | [place] | | | [address] (Home) | [id number] | + +--------+ +--------+ + +"
--- OUTSIDE RECORDS SUMMARY | ~2020-02-19 | XMS | Encounter Summary ---
Demographics + + + | Address | [address] [place] [address] [place] | | | [place] [address] | + + + | Home Phone [...] + + + | Author | [facility] | + + + | Organization | [facility] | + + + | Address | Unknown | + + + | Phone | Unavailable | + + + Support + + + + + | Name | Relationship | Address | Phone | + + + + + | [facility] | ECON | [address] | | | Center | | [place] | | | | | [address] | | + + + + + Care Team Providers + +------+ + | Care Second Language Tutor Name | Role | Phone | + [...] Refill Request | | 2017 | | [place]/Ophthalmol | MD Miranda | | | | | danelle at [place] [address] | | | | | | [address] [facility] | | | | | | Health and Healing, | | | | | | Building | | | | | | Floor [place], [place] | | | | | | [address] | | | | | | [phone] | | | +--------+--------+ + + + [...]
[~2020-02-19 15:49] MED LIST changes: +CICLOPIROX100 GM TOP
== END 2020-02-19 19:31 | disposition home or self-care (01) ==
LOC: ED 15:49
DX: S50.312A Abrasion of left elbow, initial encounter (principal); Q90.9 Down syndrome, unspecified; E11.40 Type 2 diabetes mellitus with diabetic neuropathy, unspecified; I11.0 Hypertensive heart disease with heart failure; I50.9 Heart failure, unspecified; E78.5 Hyperlipidemia, unspecified; Z79.899 Other long term (current) drug therapy; X58.XXXA Exposure to other specified factors, initial encounter
CPT/HCPCS: 99283

== ENCOUNTER 2020-04-02 18:39 | Inpatient (IN) | payer MEDICARE, OTHER ==
[~2020-04-02] VITALS: Ht 154.9 cm; Wt 58.0 kg
--- OUTSIDE RECORDS SUMMARY | ~2020-04-02 | XMS | Encounter Summary ---
Demographics + + + | Address | [address] [place] [address] [address] | | | [place] [address] | + + + | Home Phone | | + + + | Preferred Language | Unknown | + + + | Marital Status | Single | + + + | Christian Affiliation | NON | + + + | Race | Black or | + + + | Ethnic Group | Not or | + + + Author + + + | Author | [facility] | + + + | Organization | [facility] | + + + | Address | Unknown | + + + | Phone | Unavailable | + + + Support + + + + + | Name | Relationship | Address | Phone | + + + + + | [facility] | ECON | [address] | | | Center | | [place] | | | | | [address] | | + + + + + Care Team Providers + +------+ + | Care Cooker Loader Name | Role | Phone | + +------+ + | Moon Alarcon DO | PCP | | + +------+ + Encounter Details +--------+ + + + + | Date | Type | Department | Care Team | Description | +--------+ + + + + | 11/21/ | Results/Int | [facility] | Wallace Farah | Corneal scar | | 2016 | erpretation | [facility] | E MD Leo [address] | (Primary Dx) | | | | Lelia Mulligan [address] | [address] | | | | | [address] | [place], [place] | | | | | [facility] [place] | [address] | | | | | [facility], [place] | [phone] | | | | | [address] | [...] PM Pieropeter Sanford was seen in the [facility]ound Department today, 11/22/2015, for ultrasound. B-scan [...]
--- OUTSIDE RECORDS SUMMARY | ~2020-04-02 | XMS | Encounter Summary ---
Demographics + + + | Address | [address] [place] [address] [place] | | | [place] [address] | + + + | Home Phone [...] Author + + + | Author | [facility] | + + + | Organization | [facility] | + + + | Address | Unknown | + + + | Phone | Unavailable | + + + Support + + + + + | Name | Relationship | Address | Phone | + + + + + | [facility] | ECON | [address] | | | Center | | [place] | | | | | [address] | | + + + + + Care Team Providers + +------+ + | Care Lab Scientist Name | Role | Phone | + +------+ + | Moon Alarcon DO | PCP | | + +------+ + Reason for Visit + +--------+ + | Reason | Onset | Comments | | | Date | | + +--------+ + | Refill Request | 10/22/ | | | | 2018 | | + +--------+ + Encounter Details +--------+--------+ + + + | Date | Type | Department | Care Team | Description | +--------+--------+ + + + | 10/22/ | Refill | [facility] | LuisSilvanoid | Refill Request | | 2017 | | [place]/Ophthalmol | MD Miranda | | | | | danelle at [facility] [address] | | | | | | [address] [facility] | | | | | | Health and Healing, | | | | | | Building | | | | | | Floor [place], [place] | | | | | | [address] | | | | | | [phone] | | | +--------+--------+ + + + [...]
--- OUTSIDE RECORDS SUMMARY | ~2020-04-02 | XMS | Encounter Summary ---
Demographics + + + | Address | [address] [place] [address] [place] | | | [place] [address] | + + + | Home Phone | | + + + | Preferred Language | Unknown | + + + | Marital Status | Single | + + + | Baptism Affiliation | NON | + + + | Race | Black or | + + + | Ethnic Group | Not or | + + + Author + + + | Author | [facility] | + + + | Organization | [facility] | + + + | Address | Unknown | + + + | Phone | Unavailable | + + + Support + + + + + | Name | Relationship | Address | Phone | + + + + + | [facility] | ECON | [address] | | | Center | | [place] | | | | | [address] | | + + + + + Care Team Providers + +------+ + | Care Customer Acquisition Manager Name | Role | Phone | + +------+ + | Moon Alarcon DO | PCP | | + +------+ + Reason for Visit +--------+--------+ + | Reason | Onset | Comments | | | Date | | +--------+--------+ + | Other | 09/10/ | | | | 2007 | | +--------+--------+ + Encounter Details +--------+ + + + + | Date | Type | Department | Care Team | Description | +--------+ + + + + | 09/10/ | Telephone | Cardiology General | Ariel Gonzalez S, | Other | | 2006 | | at [facility] [address] | MD [address] | | | | | e [facility] | [place], [place] | | | | | Health and Healing, | [address] | | | | | [facility] | [phone] | | | | | Floor [place], [place] | | | | | | [address] | | | | | | [phone] | | | +--------+ + + + [...] + + documented as of this encounter Miscellaneous Notes Telephone Encounter - Ariel Gonzalez - 09/16/2006 8:37 AM PDTI have spoken with patients provider. He does not need any further studies. Our recommendations are that he not have surgery. If surgery is felt indended anyway, we feel strongly that pt should have cath befo rehand. CB elephone En counter - Marilin Garcia - 09/11/2006 9:02 AM PDTClinic note not available - patient did have an echo during clinic. Unsure of future plans - will route to Dr. Gonzalez.Electronica lly signed by Marilin Garcia at 09/11/2006 9:02 AM PDTTelephone Encounter - Margy Sahni - 09/10/2006 2:27 PM PDTThere is some confusion on what procedures are needed. Pt is scheduled for an echo, but the caregiver who was with [employer] for his apt. Thinks a cath is n eeded as well. Please call and clarify. 's cell phone is [phone]. Office number is ext. [phone], may also leave a message with assist. Devika at ext [phone] documented in this encounter Plan of Treatment Not on filedocumented as of this encounter Visit Diagnoses Not on filedocumented in this encounter"
--- OUTSIDE RECORDS SUMMARY | ~2020-04-02 | XMS | Encounter Summary ---
Demographics + + + | Address | [address] [place] [address] [place] | | | [place] [address] | + + + | Home Phone | | + + + | Preferred Language | Unknown | + + + | Marital Status | Single | + + + | Muslim Affiliation | NON | + + + | Race | Black or | + + + | Ethnic Group | Not or | + + + Author + + + | Author | [facility] | + + + | Organization | [facility] | + + + | Address | Unknown | + + + | Phone | Unavailable | + + + Support + + + + + | Name | Relationship | Address | Phone | + + + + + | [facility] | ECON | [address] | | | Center | | [place] | | | | | [address] | | + + + + + Care Team Providers + +------+ + | Care Precinct Police Sergeant Name | Role | Phone | + +------+ + | Moon Alarcon DO | PCP | | + +------+ + Reason for Visit + +--------+ + | Reason | Onset | Comments | | | Date | | + +--------+ + | Refill Request | 04/22/ | | | | 2016 | | + +--------+ + Encounter Details +--------+--------+ + + + | Date | Type | Department | Care Team | Description | +--------+--------+ + + + | 04/22/ | Refill | [facility] | Danielle Michelle | Refill Request | | 2015 | | [place]/Ophthalmol | MD Alexs[place] [address] | | | | | danelle at [facility] [address] | Trin[address]ramer | | | | | [address] [facility] for | [place], [place] | | | | | Health and Healing, | [address] | | | | | [facility] | [phone] | | | | | Floor [place], [place] | | | | | | [address] | | | | | | [phone] | | | +--------+--------+ + + + [...]
--- OUTSIDE RECORDS SUMMARY | ~2020-04-02 | XMS | Encounter Summary ---
Demographics + + + | Address | [address] [place] [address] [address] | | | [place] [address] | + + + | Home Phone [...] Author + + + | Author | [facility] | + + + | Organization | [facility] | + + + | Address | Unknown | + + + | Phone | Unavailable | + + + Support + + + + + | Name | Relationship | Address | Phone | + + + + + | [facility] | ECON | [address] | | | Center | | [place] | | | | | [address] | | + + + + + Care Team Providers + +------+ + | Care Hogshead Press Operator Name | Role | Phone | [...] | Registratio | [address] | [address] | | | | n | [address] Mailcode: [id number] | [place], [place] | | | | | [place], [place] | [address] | | | | | [address] | [phone] | | | | | [phone] | | | +--------+ + + + [...]
--- OUTSIDE RECORDS SUMMARY | ~2020-04-02 | XMS | Clinical Summary ---
Demographics + + + | Address | [address] [place] [address] [place] | | | [place] [address] | + + + | Home Phone | | + + + | Preferred Language | Unknown | + + + | Marital Status | Single | + + + | Pentecostal Affiliation | NON | + + + [...] + + + + + | [facility] | ECON | [address] | | | Center | | [place] | | | | | [address] | | + + + + + Care Team Providers + +------+ + | Care Marble Carver Name | Role | Phone | + +------+ + | Moon Alarcon DO | PCP | | + +------+ + Source Comments SON is [facility] Allergies + + + + [...] + + Plan of Treatment + + +-------+ + | Health Maintenance | Due Date | Last | Comments | | | | Done | | + + +-------+ + | Influenza (Flu) | | | | | vaccination (#1) | 0 | | | + + +-------+ + | Pneumococcal | Aged Out | | No longer eligible based on patient's age | | vaccination | | | to complete this topic | + + +-------+ + Results Not on filefrom Last 3 Months Insurance + +--------+ +--------+-------+---------+--------+ | Payer | Benefi | Subscriber | Effect | Phone | Address | Type | | | t Plan | ID | josse | | | | | | / | | Dates | | | | | | Group | | | | | | + +--------+ +--------+-------+---------+--------+ | VINYL CUTTER MEDICAID | VINYL CUTTER | [id number] | | | | Medica | | [...] [place] | | | al/Fam | | 1956 | [phone] | [place] | | | [place] | | | 4 (Home) | [id number] | + +--------+ +--------+ + +"
--- OUTSIDE RECORDS SUMMARY | ~2020-04-02 | XMS | Encounter Summary ---
Demographics + + + | Address | [address] [place] [address] [address] | | | [place] [address] | + + + | Home Phone | | + + + | Preferred Language | Unknown | + + + | Marital Status | Single | + + + | Jainism Affiliation | NON | + + + | Race | Black or | + + + | Ethnic Group | Not or | + + + Author + + + | Organization | Unknown | + + + | Address | Unknown | + + + | Phone | Unavailable | + + + Support + + + + + | Name | Relationship | Address | Phone | + + + + + | [facility] | ECON | [address] | | | Center | | [place] | | | | | [address] | | + + + + + Care Team Providers + +------+ + | Care State Game Protector Name | Role | Phone | + +------+ + PCP | Unavailable | + +------+ + Encounter Details +--------+ + + + + | Date | Type | Department | Care Team | Description | +--------+ + + + + | 09/10/ | Results | | Other, Faculty | | | 1993 | Only | | [phone] | | +--------+ + + + + [...] | + +--------+ + + + | CHEST, 1 VIEW, | Routin | 03/15/1993 | | Results for this | | PORTABLE | e | 1:05 PM | | procedure are in the | | | | PDT | | results section. | + +--------+ + + + | CHEST, 1 VIEW, | Routin | 03/09/1993 | | Results for this | | PORTABLE | e | 11:50 PM | | procedure are in the | | | | PDT | | results section. | + +--------+ + + + documented in this encounter Results CHEST, 1 VIEW, PORTABLE (03/15/1993 1:05 PM PDT) + + + + + + | Component | Value | Ref Range | Performed | Pathologist | | | | | At | Signature | + + + + + + | CHEST, 1 | Radiologist 1: ALE | | | | | KAREN, | ARDEN | | | | | PORTABLE | J.-Radiologist 2: | | | | | | ARDEN AGUILERA | | | | | | ISAC VALERIO | | | | | | | | | | | | [phone] | | | | | | CHEST, 1 VIEW, PORTABLE: | | | | | | 03/15/93 AT 1320 | | | | | | HOURS. | | | | | | Dictated 03/16/93 at | | | | | | 1300. FINDINGS: | | | | | | Comparison is made to | | | | | | a portable view from | | | | | | 03/09/93. The technique | | | | | | used in this examination | | | | | | is significantly | | | | | | different thanthe prior | | | | | | study. Taking this | | | | | | into consideration, | | | | | | there has been | | | | | | noapparent change in the | | | | | | appearance of the | | | | | | cardiomediastinal | | | | | | silhouetteand perihilar | | | | | | densities. IMPRESSION: | | | | | | No significant interval | | | | | | change in the appearance | | | | | | of the pulmonaryedema. | | | | | | END OF IMPRESSION: | | | | + + + + + + + + | Specimen | + + | | + + + + + | Narrative | Performed At | + + + | Ordered by NANCIE IVERSON | | + + + + +---------+ + + | Performing | Address | City/State/Zipcode | Phone Number | | Organization | | | | + +---------+ + + | [facility] | | | | | RADIOLOGY | | | | + +---------+ + + CHEST, 1 VIEW, PORTABLE (03/09/1993 11:50 PM PDT) + + + + + + | Component | Value | Ref Range | Performed | Pathologist | | | | | At | Signature | + + + + + + | CHEST, 1 | Radiologist 1: ALE, | | | | | VIEW, | ARDEN VALERIO, | | | | | PORTABLE | ISAC | | | | | | | | | | | | [phone] CHEST, | | | | | | SINGLE PORTABLE: | | | | | | 03-09-93 AT 2345 HOURS | | | | | | | | | | | | Dictated: | | | | | | 03-12-93 at 0900 hours | | | | | | No prior films for | | | | | | comparison. FINDINGS: | | | | | | A single portable view | | | | | | rotated to the | | | | | | patient's left | | | | | | wasobtained. The | | | | | | cardiomediastinal | | | | | | silhouette is prominent. | | | | | | There is | | | | | | centralpulmonary | | | | | | vascular enlargement and | | | | | | perihilar haze. The | | | | | | peripheralportions of | | | | | | the pulmonary vessels | | | | | | are not well-defined. | | | | | | Nosignificant pleural | | | | | | effusion is seen in this | | | | | | single view. | | | | | | IMPRESSION: Findings | | | | | | consistent with clinical | | | | | | suspicion of congestive | | | | | | failure. END OF | | | | | | IMPRESSION: | | | | + + + + + + + + | Specimen | + + | | + + + + + | Narrative | Performed At | + + + | Ordered by NANCIE IVERSON | | + + + + +---------+ + + | Performing | Address | City/State/Zipcode | Phone Number | | Organization | | | | + +---------+ + + | [facility] | | | | | RADIOLOGY | | | | + +---------+ + + documented in this encounter Visit Diagnoses Not on filedocumented in this encounter"
--- OUTSIDE RECORDS SUMMARY | ~2020-04-02 | XMS | Encounter Summary ---
Demographics + + + | Address | [address] [place] [address] [address] | | | [place] [address] | + + + | Home Phone | | + + + | Preferred Language | Unknown | + + + | Marital Status | Single | + + + | Protestant Affiliation | NON | + + + | Race | Black or | + + + | Ethnic Group | Not or | + + + Author + + + | Author | [facility] | + + + | Organization | [facility] | + + + | Address | Unknown | + + + | Phone | Unavailable | + + + Support + + + + + | Name | Relationship | Address | Phone | + + + + + | [facility] | ECON | [address] | | | Center | | [place] | | | | | [address] | | + + + + + Care Team Providers + +------+ + | Care Computer Project Manager Name | Role | Phone [...] scar | | 2016 | erpretation | [facility] at | E MD Leo [address] | (Primary Dx) | | | | Lelia Mulligan [address] | Trinh Cramer | | | | | [address] | [place], [place] | | | | | [facility] [place] | [address] | | | | | [facility], [place] | [phone] | | | | | [address] | [...] PM Pieropeter Sanford was seen in the [facility] today, 11/22/2015, for ultrasound. B-scan [...]
--- OUTSIDE RECORDS SUMMARY | ~2020-04-02 | XMS | Encounter Summary ---
Demographics + + + | Address | [address] [place] [address] [address] | | | [place] [address] | + + + | Home Phone | | + + + | Preferred Language | Unknown | + + + | Marital Status | Single | + + + | Temple Affiliation | NON | + + + | Race | Black or | + + + | Ethnic Group | Not or | + + + Author + + + | Author | [facility] | + + + | Organization | [facility] | + + + | Address | Unknown | + + + | Phone | Unavailable | + + + Support + + + + + | Name | Relationship | Address | Phone | + + + + + | [facility] | ECON | [address] | | | Center | | [place] | | | | | [address] | | + + + + + Care Team Providers + +------+ + | Care Manager Medical Writing Name | Role | Phone | + [...] | | | | | | DO [place] | [place] | | | | | | STATE | Cataract and | | | | | | HOSPITAL | Laser | | | | | | [address] | [place] | | | | | | [address] | [address] | | | | | | TK [place] | [address] | | | | | | [address] | [address] | | | | | | Phone: | [place], [place] | | | | | | [phone] | [address] Phone: | | | | | | Fax: | [phone] | | | | | | [phone] | | +--------+--------+ + + + + Encounter Details +--------+---------+ + + + | Date | Type | Department | Care Team | Description | +--------+---------+ + + + | 11/21/ | Office | [facility] | Anthony Flores | Corneal scars, both | | 2016 | Visit | [place] [facility] | MD Jennifer Macedo | eyes (Primary Dx) | | | | [facility] [address] | Cataract and Laser | | | | | [address] | [place] [address] | | | | | Eye [place], 4th | [facility] [address] | | | | | floor [place], [place] | [place] [address] | | | | | [address] | [phone] | | +--------+---------+ + + + Social [...] of this encounter Progress Notes Jennifer Perea - 11/22/2015 3:04 PM PDT Cornea Division Progress Note 11/22/2015 Chief Complaint Patient presents with New patient consultation Patient referred by Dr. Chauhan for corneal scarring; patient has Down's syndrome and diffic ult to examine. History from medical imaging technician who has accompanied the patient - he [...] no glasses. The patient has a medical assistant float, the aide thinks a former case mgr and not direct family. 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 Observe, refer to medical team at [facility] to determine if they would like [...]
--- OUTSIDE RECORDS SUMMARY | ~2020-04-02 | XMS | Encounter Summary ---
Demographics + + + | Address | [address] [place] [address] [address] | | | [place] [address] | + + + | Home Phone [...] Author + + + | Author | [facility] | + + + | Organization | [facility] | + + + | Address | Unknown | + + + | Phone | Unavailable | + + + Support + + + + + | Name | Relationship | Address | Phone | + + + + + | [facility] | ECON | [address] | | | Center | | [place] | | | | | [address] | | + + + + + Care Team Providers + +------+ + | Care Home Health Administrator Name | Role | Phone | + [...] | | | | | HOSPITAL | [employer] [place], [place] | | | | | | [address] | [address] | | | | | | [address] | Phone: | | | | | | [place] | [phone] | | | | | | [address] | Fax: | | | | | | Phone: | [phone] | | | | | | [phone] | | | | | | | Fax: | | | | | | | [phone] | | +--------+--------+ + + + + Encounter Details +--------+---------+ + + + | Date | Type | Department | Care Team | Description | +--------+---------+ + + + | 09/09/ | Office | Cardiology [facility] at | Ariel Gonzalez S, | Atrioventricular | | 2006 | Visit | [facility] [address] | MD [address] | Canal Type | | | | Ave Center for | [employer] [place], [place] | Ventricular Septal | | | | Health and [facility], | [address] | Defect (Primary Dx); | | | | | [phone] | Congenital Anomaly | | | | Floor [employer] [place], [place] | | of Heart | | | | [address] | | | | | | [phone] | | | +--------+---------+ + + + [...] New patient consultation and Congenital heart [facility] PCP: MOON RAMIREZ DO Referring: Moon Ramirez [...] operative repair . (Dr. Phil Fitzgerald in [place], and Dr. Julito West from cardiothoracic surgery) [...] SILVER TAB one tab by mouth daily [id number] OR sprinkle 1/4 tsp on breakfast METFORMIN [...] echocardiogram, became more combative and spit on loading checker. Walk Test: Asked pt to walk briskly, [...] a major way. It may reduce the halfway risk of heart failure, cyanosis, or arrhythmia, [...] offer him a catheterization to start. The terminal makeup operator issues to follow will be ventricular function, development of arrhythmia, and avoidance of endocarditis. He is already edentulous. We discussed some of these issues to day. Ordinarily Isac should have a yearly visit with a induction machine setter. I spoke with Dr. Ramirez by phone [...] + | LINK TO | | | [facility] | | | [facility] | [...] DEPT OF | [address] | [place], [place] | | | CARDIOLOGY | [address] | [address] | | + + + + + | [facility] DEPT OF | [address] | [place], [place] | | | CARDIOLOGY | [address] | [address] | | + + + + + documented in this encounter Visit Diagnoses + + | Diagnosis | + + | Atrioventricular canal type ventricular septal defect - Primary Other congenital | | endocardial cushion defect | + + | Congenital anomaly of heart Unspecified congenital anomaly of heart | + + documented in this encounter
--- OUTSIDE RECORDS SUMMARY | ~2020-04-02 | XMS | Encounter Summary ---
Demographics + + + | Address | [address] | | | [place] [address] | + + + | Home Phone | | + + + | Preferred Language | Unknown | + + + | Marital Status | Single | + + + | Gnosticism Affiliation | Unknown | + + + | Race | Black or | + + + | Ethnic Group | Not or | + + + Author + + + | Author | [facility] | | | and [place] | + + + | Organization | [facility] | | | and [place] | + + + | Address | Unknown | + + + | Phone | Unavailable | + + + Care Team Providers + +------+ + | Care Airways Control Specialist Name | Role | Phone | + +------+ + PCP | Unavailable | + +------+ + Encounter Details +--------+ + + + + | Date | Type | Department | Care Team | Description | +--------+ + + + + | 09/10/ | Hospital | [facility] | Oliver-Cattaneo, | Cor Athrscl-Uns | | 2006 | Encounter | CONVERSION [address] | MD [address] | Vessel | | | | [address] | [facility] [address] | | | | | [place], [place] | [place] [address] | | | | | [address] | [phone] | | | | | [phone] | | | +--------+ + + + [...] Coronary atherosclerosis of unspecified type of vessel, gulkana or graft | + + documented in this encounter"
--- OUTSIDE RECORDS SUMMARY | ~2020-04-02 | XMS | Encounter Summary ---
Demographics + + + | Address | [address] [place] [address] [address] | | | [place] [address] | + + + | Home Phone [...] [place] | | | | | [address] | | + + + + + Care Team Providers + +------+ + | Care Insulation Worker Name | Role | Phone | [...] both | | 2016 | Visit | [place]/[facility]hthalmol | ,PhD [address] | eyes (Primary Dx); | | | | ogy at [facility] [address] | Atopic | | | | [address] [facility] | [address], [place] | keratoconjunctivitis | | | | Health and Healing, | [id number] | ; Down's syndrome | | | | | | | | | | Floor [place], [place] | | | | | | [address] | | | | | | [phone] | | | +--------+---------+ + + + [...] in the resident s note. Lana Anthony Upset Welding Machine Operator, Ophthalmology [facility] [address] [place] [address], [address] [place] [address] iezra, Rohit Perdomo MD,Ph D - 10/12/2015 2:51 PM PDT COMPREHENSIVE OPHTHALMOLOGY PROGRESS NOTE Assessment and Plan: Exam Date: 10/12/2015 Patient:Isac Sanford ([id number]) Impression: Apical corneal scarring, both eyes - [...] appt Rohit Chauhan MD, PhD Ophthalmology Resident [facility] Pt seen with Dr. Anthony today. Physician: Rohit Chauhan MD 10/12/2015 HPI: Isac Sanford ([id number]), 59 y.o. year old male from [place] : Patient presents w ith: Medical Eye [...] intake form or preadmission data in [facility] for full Family ocular and medical his tory. Allergies: has No Known Allergies. Medications: Current Outpatient Prescriptions Medication Sig ACETAMINOPHEN 650 MG TAB take 1 tablet (650mg) by oral route every 4 hours as needed [id number] OR sprinkle 1/4 tsp on breakfast ASPIRIN [...]
--- OUTSIDE RECORDS SUMMARY | ~2020-04-02 | XMS | Encounter Summary ---
Demographics + + + | Address | [address] [place] [address] [place] Boswell | | | [place] [address] | + + + | Home Phone | | + + + | Preferred Language | Unknown | + + + | Marital Status | Single | + + + | Advent Affiliation | NON | + + + [...] + | [facility] | ECON | [address] | | | Center | | [place] | | | | | [address] | | + + + + + Care Team Providers + +------+ + | Care Rubber Goods Assembler Name | Role | Phone | [...] Refill Request | | 2017 | | [place]/[facility]hthalmol | MD Miranda | | | | | danelle at [facility] [address] | | | | | [address] [facility] | | | | | | Health and Healing, | | | | | | Building | | | | | | Floor [place], [place] | | | | | | [address] | | | | | | [phone] | | | +--------+--------+ + + + [...]
--- OUTSIDE RECORDS SUMMARY | ~2020-04-02 | XMS | Clinical Summary ---
Demographics + + + | Address | [address] | | | [place] [address] | + + + | Home Phone | | + + + | Preferred Language | Unknown | + + + | Marital Status | Single | + + + | Episcopal Affiliation | Unknown | + + + | Race | Black or | + + + | Ethnic Group | Not or | + + + Author + + + | Author | [facility] | | | and [place] | + + + | Organization | [facility] | | | and [place] | + + + | Address | Unknown | + + + | Phone | Unavailable | + + + Care Team Providers + +------+ + | Care Health Service Coordinator Name | Role | Phone | + [...]
--- OUTSIDE RECORDS SUMMARY | ~2020-04-02 | XMS | Encounter Summary ---
Demographics + + + | Address | [address] [place] [address] [address] | | | [place] [address] | + + + | Home Phone [...] + + + + + | [facility] | ECON | [address] | | | Center | | [place] | | | | | [address] | | + + + + + Care Team Providers + +------+ + | Care Shank Sander Name | Role | Phone | + +------+ + PCP | Unavailable | + +------+ + Encounter Details +--------+ + + + + | Date | Type | Department | Care Team | Description | +--------+ + + + + | 09/10/ | Results | | Other, Faculty | | | 1993 | Only | | [phone] | | +--------+ + + + + [...] | | + +---------+ + + | [facility] DEPARTMENT OF | | | | [...] | | + +---------+ + + | [facility] DEPARTMENT OF | | | | | RADIOLOGY | | | | + +---------+ + + documented in this encounter Visit Diagnoses Not on filedocumented in this encounter"
--- OUTSIDE RECORDS SUMMARY | ~2020-04-02 | XMS | Encounter Summary ---
Demographics + + + | Address | [address] [place] [address] [address] | | | [place] [address] | + + + | Home Phone | | + + + | Preferred Language | Unknown | + + + | Marital Status | Single | + + + | Tenriism Affiliation | NON | + + + | Race | Black or | + + + | Ethnic Group | Not or | + + + Author + + + | Author | [facility] | + + + | Organization | [facility] | + + + | Address | Unknown | + + + | Phone | Unavailable | + + + Support + + + + + | Name | Relationship | Address | Phone | + + + + + | [facility] | ECON | [address] | | | Center | | [place] | | | | | [address] | | + + + + + Care Team Providers + +------+ + | Care Tenant Relations Coordinator Name | Role | Phone | [...] | | | | | | DO [place] | [place] | | | | | | STATE | Cataract and | | | | | | HOSPITAL | Laser | | | | | | [address] | [place] | | | | | | [address] | [address] | | | | | | TK [place] | [address] | | | | | | [address] | [address] | | | | | | Phone: | [place], [place] | | | | | | [phone] | [address] Phone: | | | | | | Fax: | [phone] | | | | | | [phone] | | +--------+--------+ + + + + Encounter Details +--------+---------+ + + + | Date | Type | Department | Care Team | Description | +--------+---------+ + + + | 11/21/ | Office | [facility] | Anthony Flores | Corneal scars, both | | 2016 | Visit | [place] [facility] at | MD Jennifer Macedo | eyes (Primary Dx) | | | | [facility] [address] | Cataract and Laser | | | | | [address] | [place] [address] | | | | | Eye [place], 4th | [facility] [address] | | | | | floor [place], [place] | [place] [address] | | | | | [address] | [phone] | | +--------+---------+ + + + Social [...] diffic ult to examine. History from medical terminologist who has accompanied the patient - he [...] no glasses. The patient has a medical office coordinator, the aide thinks a former manager case management and not direct family. 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
--- OUTSIDE RECORDS SUMMARY | ~2020-04-02 | XMS | Encounter Summary ---
Demographics + + + | Address | [address] [place] [address] [place] | | | [place] [address] | + + + | Home Phone [...] Author | [facility] | + + + | Organization | [facility] | + + + | Address | Unknown | + + + | Phone | Unavailable | + + + Support + + + + + | Name | Relationship | Address | Phone | + + + + + | [facility] | ECON | [address] | | | Center | | [place] | | | | | [address] | | + + + + + Care Team Providers + +------+ + | Care Bait Painter Name | Role | Phone | + [...] | Registratio | [address] | [address] | | | | n | [address] Mailcode: [id number] | [place], [place] | | | | | [place], [place] | [address] | | | | | [address] | [phone] | | | | | [phone] | | | +--------+ + + + [...]
--- OUTSIDE RECORDS SUMMARY | ~2020-04-02 | XMS | Encounter Summary ---
Demographics + + + | Address | [address] [place] [address] [place] | | | [place] [address] | + + + | Home Phone | | + + + | Preferred Language | Unknown | + + + | Marital Status | Single | + + + | Yazidi Affiliation | NON | + + + [...] | + + + + + | [facility] | ECON | [address] | | | Center | | [place] | | | | | [address] | | + + + + + Care Team Providers + +------+ + | Care Inserting Machine Operator Name | Role | Phone [...] both | | 2016 | Visit | [place]/Ophthalmol | ,PhD [address] | eyes (Primary Dx); | | | | ogy at [facility] [address] | Atopic | | | | [address] [facility] for | [address], [place] | keratoconjunctivitis | | | | Health and Healing, | [id number] | ; Down's syndrome | | | | | | | | | | Floor [place], [place] | | | | | | [address] | | | | | | [phone] | | | +--------+---------+ + + + [...] in the resident s note. Lana Anthony Offset Printer, Ophthalmology [facility] [address] [place] [address], [address] [place] [address] iezra, Rohit Perdomo MD,Ph D - 10/12/2015 2:51 PM PDT COMPREHENSIVE OPHTHALMOLOGY PROGRESS NOTE Assessment and Plan: Exam Date: 10/12/2015 Patient:Isac Sanford ([id number]) Impression: Apical corneal scarring, both eyes - [...] appt Rohit Chauhan MD, PhD Ophthalmology Resident [facility] Pt seen with Dr. Anthony today. Physician: Rohit Chauhan MD 10/12/2015 HPI: Isac Sanford ([id number]), 59 y.o. year old male from [place] : Patient presents w ith: Medical Eye [...] form or preadmission data in [facility] for full Family ocular and medical his tory. Allergies: has No Known Allergies. Medications: Current Outpatient Prescriptions Medication Sig ACETAMINOPHEN 650 MG TAB take 1 tablet (650mg) by oral route every 4 hours as needed [id number] OR sprinkle 1/4 tsp on breakfast ASPIRIN [...]
--- OUTSIDE RECORDS SUMMARY | ~2020-04-02 | XMS | Clinical Summary ---
Demographics + + + | Address | [address] [place] [address] [place] | | | [place] [address] | + + + | Home Phone | | + + + | Preferred Language | Unknown | + + + | Marital Status | Single | + + + | Cheondoism Affiliation | NON | + + + [...] + + + + + | [facility] | ECON | [address] | | | Center | | [place] | | | | | [address] | | + + + + + Care Team Providers + +------+ + | Care Fisher Trammel Net Name | Role | Phone | + +------+ + | Moon Alarcon DO | PCP | | + +------+ + Source Comments SON is fully live on both [facility] Allergies + + + + + + [...] | | | + +--------+ +--------+-------+---------+--------+ | RECYCLABLE MATERIALS COLLECTOR MEDICAID | RECYCLABLE MATERIALS COLLECTOR | [id number] | | | | Medica | | [...] | | al/Fam | | 1956 | [phone] | [place] | | | [place] | | | 4 (Home) | [address] | + +--------+ +--------+ + +"
--- OUTSIDE RECORDS SUMMARY | ~2020-04-02 | XMS | Encounter Summary ---
Demographics + + + | Address | [address] [place] [address] [place] Boswell | | | [place] [address] | + + + | Home Phone | | + + + | Preferred Language | Unknown | + + + | Marital Status | Single | + + + | Moravian Affiliation | NON | + + + [...] [place] | | | | | [address] | | + + + + + Care Team Providers + +------+ + | Care Interactive Video Technician Name | Role | Phone | + [...] Ave | | | | | e [facility] | [place], [place] | | | | | Health and Healing, | [address] | | | | | [facility] | [phone] | | | | | Floor [place], [place] | | | | | | [address] | | | | | | [phone] | | | +--------+ + + + [...] call and clarify. 's cell phone is [phone]. Office number is ext. [phone], may also leave a message with assist. Devika at ext [phone] documented in this encounter Plan of Treatment Not on filedocumented as of this encounter Visit Diagnoses Not on filedocumented in this encounter"
--- OUTSIDE RECORDS SUMMARY | ~2020-04-02 | XMS | Encounter Summary ---
Demographics + + + | Address | [address] [place] [address] [place] Boswell | | | [place] [address] | + + + | Home Phone [...] Author + + + | Author | [facility] | + + + | Organization | [facility] | + + + | Address | Unknown | + + + | Phone | Unavailable | + + + Support + + + + + | Name | Relationship | Address | Phone | + + + + + | [facility] | ECON | [address] | | | Center | | [place] | | | | | [address] | | + + + + + Care Team Providers + +------+ + | Care Auditing Clerk Name | Role | Phone | + [...] Refill Request | | 2017 | | [place]/Ophthalmol | | | | | | danelle at [facility] [address] | | | | | | [address] [facility] | | | | | | Health and Healing, | | | | | | Building | | | | | | Floor [place], [place] | | | | | | [address] | | | | | | [phone] | | | +--------+--------+ + + + [...]
--- OUTSIDE RECORDS SUMMARY | ~2020-04-02 | XMS | Encounter Summary ---
Demographics + + + | Address | [address] [place] [address] [place] Boswell | | | [place] [address] | + + + | Home Phone [...] Author + + + | Author | [facility] | + + + | Organization | [facility] | + + + | Address [...] [place] | | | | | [address] | | + + + + + Care Team Providers + +------+ + | Care Instructor Physical Education Name | Role | Phone | + [...] | | | | | HOSPITAL | [place], [place] | | | | | | [address] | [address] | | | | | | [address] | Phone: | | | | | | [place] | [phone] | | | | | | [address] | Fax: | | | | | | Phone: | [phone] | | | | | | [phone] | | | | | | | Fax: | | | | | | | [phone] | | +--------+--------+ + + + + Encounter Details +--------+---------+ + + + | Date | Type | Department | Care Team | Description | +--------+---------+ + + + | 09/09/ | Office | Cardiology [facility] at | Ariel Gonzalez S, | Atrioventricular | | 2006 | Visit | [facility] [address] | MD [address] | Canal Type | | | | Ave Center for | [place], [place] | Ventricular Septal | | | | Health and [facility], | [address] | Defect (Primary Dx); | | | | | [phone] | Congenital Anomaly | | | | Floor [place], [place] | | of Heart | | | | [address] | | | | | | [phone] | | | +--------+---------+ + + + [...] New patient consultation and Congenital heart di [facility] PCP: MOON RAMIREZ DO Referring: Moon Ramirez [...] operative repair . (Dr. Phil Fitzgerald in [place], and Dr. Julito West from cardiothoracic surgery) [...] SILVER TAB one tab by mouth daily [id number] OR sprinkle 1/4 tsp on breakfast METFORMIN [...] echocardiogram, became more combative and spit on natural foods clerk. Walk Test: Asked pt to walk briskly, [...] a major way. It may reduce the fpc risk of heart failure, cyanosis, or arrhythmia, [...] offer him a catheterization to start. The extermination supervisor issues to follow will be ventricular function, development of arrhythmia, and avoidance of endocarditis. He is already edentulous. We discussed some of these issues to day. Ordinarily Isac should have a yearly visit with a senior account clerk. I spoke with Dr. Ramirez by phone [...] DEPT OF | [address] | [place], [place] | | | CARDIOLOGY | [address] | [address] | | + + + + + | [facility] DEPT OF | [address] | [place], [place] | | | CARDIOLOGY | [address] | [address] | | + + + + + documented in this encounter Visit Diagnoses + + | Diagnosis | + + | Atrioventricular canal type ventricular septal defect - Primary Other congenital | | endocardial cushion defect | + + | Congenital anomaly of heart Unspecified congenital anomaly of heart | + + documented in this encounter
--- OUTSIDE RECORDS SUMMARY | ~2020-04-02 | XMS | Encounter Summary ---
Demographics + + + | Address | [address] [place] [address] Luis Boswell | | | [place] [address] | + + + | Home Phone | | + + + | Preferred Language | Unknown | + + + | Marital Status | Single | + + + | Restorationism Affiliation | NON | + + + | Race | Black or | + + + | Ethnic Group | Not or | + + + Author + + + | Author | [facility] | + + + | Organization | [facility] | + + + | Address | Unknown | + + + | Phone | Unavailable | + + + Support + + + + + | Name | Relationship | Address | Phone | + + + + + | [facility] | ECON | [address] | | | Center | | [place] | | | | | [address] | | + + + + + Care Team Providers + +------+ + | Care Rn Night Name | Role | Phone | + [...] Scan | | 2015 | Visit | [place] | | ([place]) | | | | Photography at | | | | | | [facility] [address] | | | | | [address] | | | | | | Eye [place], [facility] | | | | | | floor [place], [place] | | | | | | [address] | | | +--------+ + + + [...]
--- OUTSIDE RECORDS SUMMARY | ~2020-04-02 | XMS | Encounter Summary ---
Demographics + + + | Address | [address] [place] [address] [place] Boswell | | | [place] [address] | + + + | Home Phone [...] Author + + + | Author | [facility] | + + + | Organization | [facility] | + + + | Address | Unknown | + + + | Phone | Unavailable | + + + Support + + + + + | Name | Relationship | Address | Phone | + + + + + | [facility] | ECON | [address] | | | Center | | [place] | | | | | [address] | | + + + + + Care Team Providers + +------+ + | Care Ict Sales Representative Name | Role | Phone | [...] Refill Request | | 2015 | | [place]/Ophthalmol | MD Alexsander [address] | | | | | danelle at [facility] [address] | Trin[address]ramer | | | | | [address] [facility] for | [place], [place] | | | | | Health and Healing, | [address] | | | | | [facility] | [phone] | | | | | Floor [place], [place] | | | | | | [address] | | | | | | [phone] | | | +--------+--------+ + + + [...]
--- OUTSIDE RECORDS SUMMARY | ~2020-04-02 | XMS | Clinical Summary ---
Demographics + + + | Address | [address] | | | [place] [address] | + + + | Home Phone | | + + + | Preferred Language | Unknown | + + + | Marital Status | Single | + + + | Catholic Affiliation | Unknown | + + + | Race | Black or | + + + | Ethnic Group | Not or | + + + Author + + + | Author | [facility] | | | and [place] | + + + | Organization | [facility] | | | and [place] | + + + | Address | Unknown | + + + | Phone | Unavailable | + + + Care Team Providers + +------+ + | Care Pbx Technician Name | Role | Phone | [...]
--- OUTSIDE RECORDS SUMMARY | ~2020-04-02 | XMS | Encounter Summary ---
Demographics + + + | Address | [address] | | | [place] [address] | + + + | Home Phone | | + + + | Preferred Language | Unknown | + + + | Marital Status | Single | + + + | Jehovah'S Witness Affiliation | Unknown | + + + | Race | Black or | + + + | Ethnic Group | Not or | + + + Author + + + | Author | [facility] | | | and [place] | + + + | Organization | [facility] | | | and [place] | + + + | Address | Unknown | + + + | Phone | Unavailable | + + + Care Team Providers + +------+ + | Care Machine Plate Stacker Name | Role | Phone | + +------+ + PCP | Unavailable | + +------+ + Encounter Details +--------+ + + + + | Date | Type | Department | Care Team | Description | +--------+ + + + + | 09/10/ | Hospital | [facility] | Oliver[place]Cattaneo, | Cor Athrscl-Uns | | 2006 | Encounter | CONVERSION DEP [address] | MD [address] | Vessel | | | | [address] | [facility] [address] | | | | | [place], [place] | [place] [address] | | | | | [address] | [phone] | | | | | [phone] | | | +--------+ + + + [...] Coronary atherosclerosis of unspecified type of vessel, belkofski or graft | + + documented in this encounter"
--- OUTSIDE RECORDS SUMMARY | ~2020-04-02 | XMS | Encounter Summary ---
Demographics + + + | Address | [address] [place] [address] [place] Boswell | | | [place] [address] | + + + | Home Phone [...] Author + + + | Author | [facility] | + + + | Organization | [facility] | + + + | [...] [place] | | | | | [address] | | + + + + + Care Team Providers + +------+ + | Care Leather Stripping Machine Operator Name | Role | Phone [...] Scan | | 2015 | Visit | [place] | | ([place]) | | | | Photography at | | | | | | [facility] [address] | | | | [address] | | | | | | Eye [place], [facility] | | | | | | floor [place], [place] | | | | | | [address] | | | +--------+ + + + [...]
--- OUTSIDE RECORDS SUMMARY | ~2020-04-02 | XMS | Encounter Summary ---
Demographics + + + | Address | [address] [place] [address] [place] Boswell | | | [place] [address] | + + + | Home Phone [...] [place] | | | | | [address] | | + + + + + Care Team Providers + +------+ + | Care Hand Trimmer Name | Role | Phone | + [...] Refill Request | | 2017 | | [place]/Ophthalmol | | | | | | danelle at [facility] [address] | | | | | | [address] [facility] | | | | | | Health and Healing, | | | | | | Building | | | | | | Floor [place], [place] | | | | | | [address] | | | | | | [phone] | | | +--------+--------+ + + + [...]
[~2020-04-02 18:39] MED LIST changes: -ASPIRIN EC81 MG PO; +ST. JOSEPH ASPI81 M1 PO; -VITAMIN D1000 UNIT PO; +VITAMIN D325 MC4 PO
--- NOTE | 2020-04-02 21:18 | EKG ---
[facility] [address] [facility] [place] [address] Signed Sinus tachycardia Possible Left atrial enlargement Left axis deviation Posterior infarct , age undetermined Abnormal ECG When compared with ECG of 27-DEC-2018 23:46, premature atrial complexes are no longer present ST now depressed in Anterior leads Confirmed by DALE STREETER MD ([id number]) on 04/02/2020 9:18:40 PM Electronically Signed By: DALE STREETER MD 04/02/20 2118 PATIENT NAME: SHAWN MAIN KAITY Electrocardiogram DATE OF : 59 PHYSICIAN: DALE STREETER MD REPORT #: [id number] REPORT IS CONFIDENTIAL AND NOT TO BE RELEASED WITHOUT AUTHORIZATION
--- NOTE | 2020-04-02 23:12 | NUR ---
BROUGHT pt FROM ED VIA STRETCHER. pt DOES NOT FOLLOW INSTRUCTIONS. BREATHING IS LABORED, AUDIBLE COARSE SOUNDS. UNABLE TO AUSCULATE DUE TO PAPR. COUGH SOUNDS LOOSE, NO SPUTUM NOTED. RESPIRATIONS TACHY IN 30'S. CAME TO UNIT ON 2L O2. DIFFICULT TO GET A GOOD WAVE FORM FOR READING, ON OXYMASK 12L TO MAINTAIN SAT GREATING THAN 92%. pt UPSET WHEN MOVED FROM STRETCHER TO BED. HAD A LARGE INCONT VOID AND A SMEAR BM. PERICARE DONE. FRESH LINENS. DEPENDS IN PLACE. NOTED SORE/SCAB ON LEFT ELBOW. PULSE FAINT. CAP REFILL GREATER THAN 3 SECONDS IN FEET. MUCUS MEMBRANES EXTREMELY DRY. ORAL SWAB WITH WATER HAD SCANT BLOOD. ATTEMPT SWALLOW EVAL. pt ABLE TO TOLERATE ORAL SWABS BUT NOT SWALLOWING LIQUIDS AT THIS TIME, COUGHS WITH SMALL AMOUNT OF WATER. MOISTURIZED MOUTH WITH ORAL CARE. pt RESTING IN BED WITH BED ALARM ON. HOB >45. OXY MASK IN PLACE 12L O2. CURTAIN OPEN TO NURSES STATION.
--- NOTE | 2020-04-03 01:15 | NUR ---
IV ABX COMPLETED, SECOND ANTIBIOTIC STARTED. ABG DONE BY ENRIQUE DAWSON. pt HELD BY THREE PEOPLE. PRESSURE APPLIED UNTIL BLEEDING STOPPED. BANDAID IN PLACE. pt RESTING IN BED. RESPIRATIONS LABORED, ACCESSORY MUSCLE USE. BED ALARM ON.
--- NOTE | 2020-04-03 02:11 | NUR ---
ROUNDED ON pt. RECTAL TEMPERATURE TAKEN.
--- NOTE | 2020-04-03 03:22 | NUR ---
ROUNDED ON pt. RESTING IN BED WITH EYES CLOSED. USING ACCESSORY MUSCLES TO BREATH. RATE 26. HR NOW 110'S. O2 SAT 95% ON 13L OXY MASK. BED ALARM ON.
--- NOTE | 2020-04-03 05:25 | NUR ---
IN TO DRAW LABS. NEW IV STARTED, LABS DRAWN. pt TOLERATED WELL. NO VOID. BLADDER SCANNED GREATER THAN 500. LOPEZ INSERTED. LARGE URINE OUTPUT. CONCENTRATED URINE. pt LESS INTERACTIVE THEN BEFORE, DID REACT TO PAINFUL STIMULI. CURTAIN OPEN TO NURSES STATION.
--- NOTE | 2020-04-03 06:50 | NUR ---
UPDATED MD ON pt STATUS. ORDER FOR LOPEZ. NO OTHER ORDERS AT THIS TIME.
--- NOTE | 2020-04-03 07:06 | NUR ---
ROUNDED ON pt. TITRATED TO 9L O2 VIA OXYMASK, SATS IN UPPER 90'S.
--- NOTE | 2020-04-03 08:00 | NUR ---
ASSESSMENT DONE. NON VERBAL. EYES MOSTLY SHUT.
--- NOTE | 2020-04-03 09:00 | NUR ---
REPOSITIONED. REMAINS ON OXYMASK AT 9 L. U/O OVER PAST HOUR 14 ML.
[2020-04-03] MEDS ORDERED: [UNRECOGNIZED DRUG - OTHER] OPTH (11:57)
[2020-04-03] MEDS ORDERED: REFRESH OPTIVE10 ML OU (11:57)
--- NOTE | 2020-04-03 12:00 | NUR ---
ASSESSMENT DONE. NON-VERBAL. DR. STREETER UPDATED ON PATIENT STATUS. IS AWARE OF U/O TOTAL OF 119 ML SINCE 0800, ACCUCHECK, MENTAL STATUS. O2 SATS ON 11 LITERS OXYMASK WITH SATS 88 -98. HAS LOOSE NON-EFFECTIVE COUGH. HUMALOG INSULIN 3 UNITS SQ GIVEN ORDERED. FREQUENT ORAL CARE GIVEN.
--- NOTE | 2020-04-03 14:28 | NUR ---
DUE TO PRECAUTIONS AND THAT PT IS NON-VERBAL I AM UNABLE TO VISIT AT THIS TIME. WILL FOLLOW
--- NOTE | 2020-04-03 15:20 | NUR ---
Update from ENRIQUE. Nisha remains pending. They are concerned as cg coming into the unit are not using proper isolation. Moving in and out of room. I requested they fill out an IRIS. There is also concern as to guardianship. I will contact [facility]. Attempted to phone and was not able to contact. Will try again tomorrow.
--- NOTE | 2020-04-03 15:23 | NUR ---
PATIENT'S CAREGIVER RETURNS TO OUTSIDE HIS ROOM AT THIS TIME AND STATES SHE IS GOING TO BE GOING HOME FOR THE DAY, AND SHE ISN'T SURE IF THE MANAGMENT OF HER WORK WILL BE SENDING ANY FURTHER CAREGIVERS. THIS CARGIVER WAS NOTED TO BE CRYING AND WHEN ASKED IF SHE WAS OKAY, SHE STATES, "YEAH, THIS IS JUST HARD BECAUSE THIS IS MY FIRST TIME HERE IN THE HOSPITAL, AND ALL OF THIS GOING ON." REASSURED CAREGIVER THAT IF SHE NEEDED TO HAVE HER INDUSTRIAL ENGINEER HERE, SHE HAS THAT NUMBER AND TO NOT HESITATE TO CALL. PT RESITNG IN BED WITH SP02 OF 95% AT THIS TIME. LAST BP 85/61 (70).
--- NOTE | 2020-04-03 16:50 | NUR ---
PATIENT RESTING IN BED AT THIS TIME. ASSESSMENT COMPLETE. PT MORE ALERT, AND DOES COUGH OCCASIONALLY, BUT THIS COUGH IS WEAK AND NON PRODUCTIVE IN NATURE. PT TURNED DOWNT O 9 L OM AT THIS TIME DUE TO SP02 AT 97%. WILL CONTINUE TO MONITOR. REPOSITIONED TO RIGHT SIDE.
--- NOTE | 2020-04-03 18:00 | NUR ---
HAS BEEN PULLING OFF OXYMASK. O2 TO 6 L NC. U/O REMAINS LOW DR. STREETER AWARE, ALSO UPDATED ON PATIENT CONDITION. HERE TO SEE PATIENT.
--- NOTE | 2020-04-03 19:47 | NUR ---
REPORT TO NEXT SHIFT.
--- NOTE | 2020-04-03 20:00 | NUR ---
RECEIVED REPORT AT 1930. PT AT THIS TIME IS PULLING OUT HIS IV, PT ALSO PULLING OFF HIS PULSE OX.
--- NOTE | 2020-04-03 20:15 | NUR ---
ALL LOBES ARE COARSE. PT ON 10L O2 OXY MASK. URINE OUTPUT AT THIS TIME IS 48MLS. URINE CONCENTRATED IN APPEARANCE. MD STREETER AWARE OF LOW URINE OUTPUT. PT PULLED IV. RIGHT RADIAL PULSE AND LEFT PEDIS PULSE +1, OTHER PULSES WDL, PT IS COOL OVERALL. WARM BLANKETS PROVIDED, PT TURNED IN BED, LOPEZ CARE PROVIDED, PT AFEBRILE AT THIS TIME.
--- NOTE | 2020-04-03 21:30 | NUR ---
COVID TEST BACK +. MD STREETER IS AWARE. PT SO FAR IS NOT KEEPING HIS OXY MASK ON AND KEEPS DESATING INTO THE 70'S- 80'S. PT ALSO TAKES OFF HIS PULSE OX. URINE OUTPUT STILL LOW. WILL GIVE IT A BIT MORE TIME AND SEE IF IV FLUIDS WILL HELP. JUSTINE AT FACILITY WAS UPDATED WELL ON PT CONDITION AND COVID STATUS.
--- NOTE | 2020-04-03 22:30 | NUR ---
CALLED JUSTINE AT FACILITY TO GET A SPRINKLER INSPECTOR TO COME IN. PT REQUIRES CONSTANT SUPERVISION AT THIS TIME. BP'S STILL LOW.
--- NOTE | 2020-04-03 22:54 | NUR ---
pt WAS TAKING HIS OXYMASK OFF HIS FACE, O2 SATS DROPPED TO 78 I STOOD BED SIDE FOR 10 MINS TRYING TO KEEP pt ON OXYMASK. HE FINALLY ALLOWED IT TO BE PROPERLY PLACED, O2 SATS AT 98 WHEN I LEFT ROOM. pt JUST NOW TOOK OXYMASK OFF AGAIN DROPPED TO MID 80s, ENRIQUE MEIER IN ROOM AT THIS TIME.
--- NOTE | 2020-04-03 23:04 | NUR ---
A OFFICE MACHINE SERVICER APPRENTICE FOR THIS PT WILL BE HERE SOON. URINE OUTPUT STILL LOW, BP AT THIS TIME IS BETTER. PT DOES NOT HAVE THE APPEARANCE OF RESPIRTATORY DISTRESS AT THIS TIME. WILL CONTINUE TO MONITOR. PT WAS ALSO TURNED AGAIN.
--- NOTE | 2020-04-04 | NUR ---
MANAGER FLIGHT OPERATIONS JUSTINE IN ROOM AT THIS TIME. PT NOW ALSO IS ON A HIGH FLOW NC AT 10L O2 AT THIS TIME AND IS DOING WELL WITH IT. WILL CONTINUE TO MONITOR URINE OUTPUT AND FEVER. LOBES STILL COARSE. NO OTHER CHANGES NOTED.
--- NOTE | 2020-04-04 01:00 | NUR ---
PT AT THIS TIME IS STILL AWAKE WITH MICROBIOLOGICAL ANALYST AT BEDSIDE. O2 SATS ARE WDL, NO NEW CONCERNS NOTED AT THIS TIME. WILL CONTINUE TO MONITOR.
--- NOTE | 2020-04-04 02:00 | NUR ---
TEMPT AT THIS TIME IS 101.6 F AXILLARY. PRN TYLENOL SUPP TO BE GIVEN. URINE OUPUT STILL LOW, PT REPOSITIONED, BP'S AT THIS TIME STILL LOW, WILL HOLD LOPRESSOR DOSE.
--- NOTE | 2020-04-04 02:30 | NUR ---
PT POSITION CHANGED. PULSE OX CHANGED. LOGGING WORKER AT BEDSIDE. PT STILL AWAKE. BP'S WDL AT TIMES AND LOW AT OTHER TIMES.
--- NOTE | 2020-04-04 03:00 | NUR ---
BP'S STILL LOW, URINE OUTPUT LOW. WILL CONTINUE TO MONITOR.
--- NOTE | 2020-04-04 05:30 | NUR ---
TEMP AT THI TIME IS 99.1F AXILLARY, PT HAS NEW IV R FA 22G, PT TAKES MEDS CRUSHED IN APPLE SAUCE/PUDDING, PHARMACOVIGILANCE SCIENTIST AT BEDSIDE. LABS WERE DRAWN.
--- NOTE | 2020-04-04 08:08 | NUR ---
IN PATIENT'S ROOM PATIENT TAKES OFF OXYGEN AND DESATURATES DOWN TO 80% ON ROOM AIR. OXYGEN TURNED UP TO 15 DURING THIS TIME, BUT NOW BACK TO 11L HI FLOW NASAL CANNULA WITH HUMIDITY. SP02 IS NWO 94%. PT NOTED TO HAVE A LOOSE COUGH, SOMETIMES INEFFECTIVE SOUNDING. PT REPOSITIONED IN BED AND TURNED ONTO LEFT SIDE. PT HAS IVF GOING AT 75 ML/HR. CBG 214 THIS AM. INSULIN TO BE GIVEN. PILLS TO BE CRUSHED WITH APPLESAUCE OR PUDDING. LUNGS HAVE CRACKLES BILATERAL BASES. PT IS COVID POSITIVE. PT HAS CAREGIVERS FROM [facility] THAT WILL BE HERE OFF AND ON DURING THE DAY.
--- NOTE | 2020-04-04 08:25 | NUR ---
Called and spoke with Ye from [facility]. UPdated would like to give Remdisevere but will need to have consent. He states he will contact [facility]y as they will need to have a committee meeting to review.
--- NOTE | 2020-04-04 12:17 | NUR ---
IN ROOM FOR ASSESSMENT AND VITALS. RT IN ROOM WELL. PT GIVEN PRN NEB TX DUE TO WHEEZES. PT AWAKE, ALERT. PT SLIDES DOWN IN BED EASILY AND REPOSITIONED TO LEFT SIDE AND SUPPORTED WITH PILLOWS. PT REMAINS ON 11 L HI FLOW. IVF CONTINUE AT 75 ML/HR. STILL WAITING TO HEAR FROM PATIENT'S CAREGIVERS TO DECIDE IF HE WILL BE PLACED ON REMDESEVIR OR NOT. CONTINUE TO MONITOR.
--- NOTE | 2020-04-04 12:40 | NUR ---
IN PATIENT'S ROOM HE CONTINUES TO PULL HIS OXYGEN OFF, AND DESATS TO LOW 80%. PT NOT ABLE TO FOLLOW COMMANDS WELL. PT NEEDING SOMEONE TO STAY IN ROOM WITH HIM SO HE CAN HAVE OXYGEN REAPPLIED OFTEN. CONTINUE TO MONITOR.
--- NOTE | 2020-04-04 13:34 | NUR ---
Call from [facility]. Updated to need for consent. She states she will contact all committee members and call us back. She has many questions and informed she will need to speak with Dr. Reddy.
--- NOTE | 2020-04-04 14:12 | NUR ---
UPDATED DR. STREETER ABOUT INCREASED OXYGEN NEED, GOING FROM 11 L TO 15 L. DISCUSSED PATIENT'S INADEQUATE COUGH. JUSTINE, WHO IS A CAREGIVER FOR THIS PATIENT IS GOING TO BE GETTING A HOLD OF DR. STREETER TO ASK QUESTIONS REGARDING PATIENT'S CARE THEY ASSEMBLE A COMMITTEE TO HELP MAKE MEDICAL DECISIONS FOR THE PATIENT. WILL CONTINUE TO MONITOR.
--- NOTE | 2020-04-04 14:14 | NUR ---
DUE TO PRECAUTIONS, STILL UNABLE TO VISIT. WILL FOLLOW
--- NOTE | 2020-04-04 14:15 | NUR ---
Call from [facility] and they have contacted everyone. Wanted to know if they can use our conference line, informed I will contact Dr. Reddy and set up conference call with them.
--- NOTE | 2020-04-04 14:35 | NUR ---
Called Dr. Bhardwaj, she is with a patient, but will come to my office for a conference call with Christy and her team.
--- NOTE | 2020-04-04 15:00 | NUR ---
Conference call with [facility] care Team: per phone Radha Cifuentes [facility] CDDP, Christy fish house worker at [facility], Flavio Marriliy [employer] [place] Advocate, Reena ESCALANTE Care Aide/Legal Transcriber SAUL, Dr. Marissa Reddy Hospitalist, Tracy MesaVeterinary Inspector/DC planner/scheduler. Dr Reddy started the meeting explaining pt is covid +, treatment is remdesivir and the medication has been FDA approved as an experimental treatment for Covid. As medication is experimental a consent is required. Therefore, we are having this phone meeting to obtain consent as patient is unable to consent for self. Team askes questions of benefits and Dr Reddy explained benefits and side effects: 1. May decrease length of covid 2. May prolong his life 3. This is the current treatment, it is IV dose for 5 days. This treatment was approved by the FDA in January. Side effects: 1. May have liver enzymes increased, may not be reversable 2. Could possibly have infusion reaction. Several questions were asked about treatment if there was a reaction and if pt would be intubated. Dr. Reddy explained this patient is a full code, so all treatment would be given. Dr. Reddy explained we are not asking about changing treatment, she is asking for an experimental medication only. A questions was asked what treatment would look like without remdesivir and Dr. Reddy stated the treatment he is currently getting oxygen and steroids. Question was also asked if pt could return to [facility] and get IV in house. explained this is not possible. There were further questions about intubation and again Dr. Reddy stated this is not the concern, she is seeking consent for remdesivir. Dr Reddy then questioned why the concern as this patient is a full code and will be treated as such. One of the participants stated "they are high alert" as it was mentioned team should discuss if pt should have code change due to his diagnosis. Christy stated she was in the room with Isac last night and this was brought up. She did not feel it was malicious, Rn was concerned as she knew a team was required to make decision. Dr Reddy let them know this was not physician ordered. She is aware the patient is a full code and will be treated as such unless she is notified otherwise. There was a discussion between Radha and Christy and they both agreed Isac would benefit from Remdesivir. Requested to know what they needed to do. Informed we will have the consent and information handouts for them in CCU. Dr Reddy reminded team this is time sensitive as this medication works best when given as soon as testing positive. The longer the delay, the less effective. Christy states she will come into sign the consent. We thanked everyone for their time. Consent given to Dr. Reddy and she completed, consent then taken to CCU with handouts for Christy on Remdesivir.
--- NOTE | 2020-04-04 15:22 | NUR ---
PATIENT RESTING ON LEFT SIDE WITH HI FLOW OXYGEN STILL AT 11 L. CONTINUE TO MONITOR.
--- NOTE | 2020-04-04 15:50 | NUR ---
IN PATIENT'S ROOM FOR DESATURATIONS DOWN TO 76% AFTER PATIENT TOOK OXYGEN OFF. NOW BACK TO 93%. PT IS MORE RESTLESS AND PULLING AT LINES. STAFF IN ROOM SITTING WITH PATIENT HE IS A 1:1 DURING THIS TIME.
--- NOTE | 2020-04-04 16:07 | NUR ---
ASSESSMENT AND VITALS COMPLETE. PT REMAINS RESTING ON LEFT SIDE WITH 11 L HIGH FLOW OXYGEN. HR IN THE 90S.LOPEZ DRAINING CONCENTRATED URINE. PT UNABLE TO PRONE, BUT BEING HELPED TO REPOSITION IN BED FROM SIDE TO SIDE TO PROMOTE LUNG EXPANSION. PT SAT AT SIDE OF BED EARLIER AROUND 1500 TO HELP STIMULATE DEEP BREATHS AND PROMOTE COUGHING, WHICH PT DOES NOT DO VERY WELL. CONGESTED LUNG SOUNDS ARE NOTED. EXP WHEEZES ARE NO LONGER AUDIBLE THEY WERE EARLIER AROUND 1200. IVF CONTINUE AT 75 ML/HR. REPORT FROM CASE MANAGEMENT THAT CAREGIVER JUSTINE WILL BE COMING IN TO SIGN CONSENT FORM FOR REMDESEVIR FOR PATIENT AND WILL BE STARTED IMMEDIATELY ONCE AVAILABLE. NOT ALLOWING PATIENT TO EAT AT THIS TIME DUE TO CONCERNS OF POTENTIALLY NEEDING MORE RESPIRATORY SUPPORT. PT ATE 2 PUDDINGS THIS AM FOR BREAKFAST AROUND 0830.
--- NOTE | 2020-04-04 16:16 | NUR ---
PATIENT GIVEN WARM BLANKETS AT HIS HANDS FEEL COOL TO TOUCH. PT RESTING ON LEFT SIDE. CONTINUE TO MONITOR.
--- NOTE | 2020-04-04 16:51 | NUR ---
Received message from Christy, she is not [facility] advocate. She is not able to sign his consent without the signature of a second person. That person is not available to sign. She is hoping to get contact his old [employer] to sign, but has not been able to reach. They will contact us tomorrow when they have the appropriate people to sign.
--- NOTE | 2020-04-04 17:14 | NUR ---
PATIENT'S CAREGIVER JUSTINE CALLS TO UPDATE THIS RN THAT SHE IS UNABLE TO SIGN THE CONSENT FORM FOR REMDESEVIR TODAY DUE TO NOT BEING APPROVED TO LEGALLY SIGN WITHOUT A SECOND PERSON ALSO APPROVED TO SIGN FOR HEALTH CARE DECISIONS FOR [place]. THIS RN REMINDED JUSTINE THAT REMDESEVIR IS THOUGHT TO BE TIME SENSITIVE, THEREFORE THE SOONER IT CAN BE STARTED IN THE COVID-19 ILLNESS, THE BETTER. JUSTINE STATED SHE UNDERSTOOD THIS AND WAS DOING EVERYTHING POSSIBLE TO GET THIS AUTHORIZATION APPROVED TODAY, BUT IT WASN'T GOING TO HAPPEN UNTIL TOMORROW LIKELY. DR. STREETER AND CASE MANAGEMENT UPDATED.
--- NOTE | 2020-04-04 18:15 | NUR ---
IN PATIENT'S ROOM FOR CBG CHECK WHICH WAS 135. NO INSULIN NEEDED. PT'S HEART RATE NOTED TO BE 106-107 WHICH IS HIGHER THAN PREVIOUSL. PT HAS BEEN RESTING/SLEEPING LAST HOUR OR SO. PT FEELS WARM TO TOUCH AND TEMP IS 101.3 AXILLARY. RECTAL SUPP GIVEN OF TYLENOL (SEE EMAR). PT MAKING UNDER ADEQUATE URINE OUTPUT. WILL NOTIFY DR. STREETER.
--- NOTE | 2020-04-04 19:18 | NUR ---
took over 1:1. pt resting at this time, NC in. nothing needed.
--- NOTE | 2020-04-04 19:30 | NUR ---
PT AWAKE IN BED. NO NEW CONCERNS NOTED.
--- NOTE | 2020-04-04 20:00 | NUR ---
TEMP AT THIS TIME IS STLL 101. F AXILLARY. ALL LOBES ARE COARSE, PT ON 11L O2 HIGH FLOW NC. PULSES ARE WDL, NO EDEMA NOTED, ABD SOUNDS PRESENT, URINE OUTPUT IS STILL LOW AROUND 25MLS/ HR. WILL CALL MD ABOUT FEVER AND THAT PRN TYLENOL SUPP DID NOT HELP HIS FEVER.
--- NOTE | 2020-04-04 20:30 | NUR ---
PT AT THIS TIME IS AFEBILE. PT IS STILL WEAK WHEN WALKING THOUGH. LOBES ARE CLEAR BUT THIGHT. NOT MUCH AIR MOVEMENT WAS NOTED. PULSES ARE WDL, ABD SOUNDS ARE PRESENT. URINE OUTPUT IS ADEAQUATE SO FAR THIS SHIFT. PT UP IN CHAIR AT THIS TIME.
--- NOTE | 2020-04-04 21:14 | NUR ---
.pt calm. trying to rest. nothing further at this time, remains 1:1.
--- NOTE | 2020-04-04 22:06 | NUR ---
PT DID SLEEP A BIT BUT IS AWAKE AGAIN NOW. PT WAS GIVEN WATER TO DRINK AND LIP BALM WAS APPLIED WELL. PT WAS ALSO TURNED AGAIN. PT CALM AT THIS TIME. URINE OUTPUT STILL LOW. NO NEW CONCERNS NOTED AT THIS TIME.
--- NOTE | 2020-04-05 00:15 | NUR ---
COLLECTION ADMINISTRATOR WILL BE HERE UNTIL 0200. LOBES ARE COARSE BUT LESS COARSE THAN AT START OF SHIFT. PT AT THIS TIME IS AFEBRILE. URINE OUTPUT IS STILL LOW BUT URINE LOOKS LESS CONCENTRATED. NO NEW ISSUES WERE NOTED.
--- NOTE | 2020-04-05 01:20 | NUR ---
RUBBER PROCESS HAND HAS LEFT AT THIS TIME. HE STATED THAT SOMEBODY MAY BE HERE IN THE AFTERNOON.
--- NOTE | 2020-04-05 02:00 | NUR ---
PT AT THIS TIME IS AWAKE. HAND SHOES SEWER TO BE THE 1:1 FOR NOW. BP'S STARTING TO GET LOW AGAIN. WILL CONTINUE TO MONITOR. PT ALSO TO BE TURNED.
--- NOTE | 2020-04-05 02:07 | NUR ---
pt TURNED TO RIGHT SIDE, HE IS NOW RESTING. TEMPERTURE 98.5 AXILLARY.
--- NOTE | 2020-04-05 04:06 | NUR ---
PT AT THIS TIME IS HAVING INSPIRATORY AND EXPIRATORY WHEEZING PRESENT. RT WAS CALLED FOR A BREATHING TX. PT IS AFEBRILE STILL. URINE OUTPUT HAS PICKED UP SOME FOR THE LAST 2 HRS, URINE OUTPUT HAS BEEN JUST ADEQUATE. ABDOMEN SEEMS SLIGHTLY DISTENDED BUT DOES NOT SEEM TO CAUSE PT PAIN AND IT IS STILL SOFT TO TOUCH. WILL CONTINUE TO MONITOR, BP'S BETTER THIS SHIFT OVERALL.
--- NOTE | 2020-04-05 04:15 | NUR ---
pt consistently removing NC from nostrils and o2 sats drop fairly quick. pt yells "NO" as this TIRE AND TUBE REPAIRER reapplies NC stating "this will help you breathe better". pt continues yelling out "NO".
--- NOTE | 2020-04-05 06:15 | NUR ---
BP'S ARE TRENDING DOWNWARD AGAIN AT THIS TIME. URINE OUTPUT STILL BETTER THIS HR. ON CHANGES IN O2 NEED AT THIS TIME. WILL CONTINUE TO MONITOR.
--- NOTE | 2020-04-05 06:16 | NUR ---
pt continues to try and remove NC. This QUILL BUNCHER AND SORTER tells pt "Its important to keep this in your nose" pt does not favor NC.
--- NOTE | 2020-04-05 06:28 | NUR ---
pt finally starting to rest. eyes closed. o2 sats @ 97%. Was going to attempt blow-by if pt removed NC.
--- NOTE | 2020-04-05 07:30 | NUR ---
REPORT RECIEVED. SYSTEM PLANNING ENGINEER IN ROOM WITH PATIENT AT THIS TIME. O2 AT 13 L HIGH FLOW VIA NC.
--- NOTE | 2020-04-05 08:00 | NUR ---
ASSESSMENT DONE. IS VERY DROWSY. ACCUCHECK 217. HUMALOG 3 UNITS SQ GIVEN. PO MEDS GIVEN, CRUSHED IN PUDDING. MOUTH IS VERY DRY. ORAL CARE GIVEN. DR. STREETER HAS BEEN IN TO SEE PATIENT. DR. STREETER SAID NOT TO FEED PATIENT AT THIS TIME, IS OK TO GIVE MEDS WITH PUDDING. PATIENT HAS OCC LOOSE NON-EFFECTIVE COUGH. RT HERE, DISCUSSED POSSIBLE USE OF VEST. HE SAID HE WOULD TALK WITH DR. STREETER ABOUT THIS.
--- NOTE | 2020-04-05 08:06 | NUR ---
Called and spoke with Flavio Galvez [employer] [place] Advocate. Updated [employer] Machine Operator, Christy was not able to sign consents for Remdesivir as she is not an Advocate. Again notified this medication is most effective when given near the time when patient tests positive. We are 24 hours past this time. He states he will look into this.
--- NOTE | 2020-04-05 08:16 | NUR ---
Attempted to call [facility] and was unable to contact as shyanne states they have a high volume at calls at this time. Unable to leave a message. I am attempting to find who Jori's case picker is at [facility].
--- NOTE | 2020-04-05 08:40 | NUR ---
SPONGE BATH GIVEN, REPOSITIONED. WILL MOAN OUT WHEN TURNED.
--- NOTE | 2020-04-05 10:15 | NUR ---
Received call from Christy, she is continuing to work on paper work for advocate. She plans on sending her RN to sign papers. I then received an email from YOSELYN PetersenO. I emailed and asked if RN can sign and he replyed only if she is and Advocate. I call christy back and asked if Juli Cardenas RN is an advocate. She states she is not, any one on the payroll cannot be and Advocate. I asked her to tell them to not drive to the hospital as they will not be able to sign.
--- NOTE | 2020-04-05 10:57 | NUR ---
CONTINUES TO SLEEP. NO DISTRESS NOTED AT THIS TIME. IVF PATENT. HOB ELEVATED.
--- NOTE | 2020-04-05 12:00 | NUR ---
ASSESSMENT DONE. ACCUCHECK 193. HUMALOG 3 UNITS SQ GIVEN. REPOSITIONED. REMAINS SLEEPY. RARE INEFFECTIVE COUGH. O2 DECREASED TO 11 LITERS HIGH FLOW NC.
--- NOTE | 2020-04-05 14:15 | NUR ---
Received a call from Rosi Harden, she has spoken with Flavio Odell and he states there are advocates available and we need to call Christy to have them sign the consents. As I am calling Christy, she calls and states the paperwork for Jori Ghotra has been completed and he will be here in approx [address] Reddy and CCU Rn notified.
--- NOTE | 2020-04-05 14:32 | NUR ---
PT STILL ON PRECAUTIONS. WILL FOLLOW
--- NOTE | 2020-04-05 15:48 | NUR ---
Spoke with CCu Rn, Jori has arrived. Met with Jori and consent signed. Information sheets given on Remdesivir and Sonia, RN explains benefits and side effects. Dr. Beauchamp present and spoke with Jori. He requested he be the primary person to receive info and all others call Jori for updates. Jori agrees to this. Dr. Beauchamp requested Jori notify everyone they need to speak with him for updates. Jori also requests if pt is deteriorating and there is a possibility he needs to be intubated, if there is time, he would like a call and will discuss with team if this what is best for [place]. He also states if intubation were to be emergent, we should proceed with intubation. [facility] Electrical Calibrator paper placed in chart with signed consent. [place] and Rosi Harden notified by email.
--- NOTE | 2020-04-05 16:00 | NUR ---
DR. SHAH HERE TO SEE PATIENT. SATYA RECIEVED.
--- NOTE | 2020-04-05 16:45 | NUR ---
REMDESIVER HUNG [facility] ORDERS. PERMIT SIGNED BY PATIENT ADVOCATE(AUDRA LEMUS), PERMIT SENT TO PHARMACY EARLIER.
--- NOTE | 2020-04-05 16:49 | NUR ---
NS IVF DC'D, LR HUNG T 250 ML X 1/2 HR, THEN LR AT 100 ML/HR. IV SITE STARTED TO RIGHT HAND, 20 GA. ABGS TO EB DRAWN. ASSESSMENT DONE,
--- NOTE | 2020-04-05 16:53 | NUR ---
ABG RESULTS PH-7.36, PCO2-54.2, PO2-57, HCO3-30, SAT 88. PATIEBT REMAINS ON O2 AAT 11 LITERS VIA HIGH FLOW
--- NOTE | 2020-04-05 17:15 | NUR ---
TO CT VIA BED. ACCOMP BY RN AND XRAY STAFF. IS ON 15 L VIA HIGH FLOW O2 UPON GOING CT.
--- NOTE | 2020-04-05 17:35 | NUR ---
TOLERATED CT WELL. RT HERE TO PLACE VAPOTHERM PER MD ORDERS. FLOW-30 FIO2 65.
--- NOTE | 2020-04-05 19:00 | NUR ---
PULLS OFF O2 AT TIMES, SAT TO MID 70'S.
--- NOTE | 2020-04-05 19:22 | NUR ---
VAPOTHERM FLOW INCREASED TO 35, FIO2 65. IVF-100 ML/HR, REPORT TO NEXT SHIFT.
--- NOTE | 2020-04-05 19:30 | NUR ---
Report received, orders acknowledged. Patient laying in bed with vapotherm in place, settings at 35L and 60% FiO2. SpO2 remains in the mid to low 90's.
--- NOTE | 2020-04-05 20:00 | NUR ---
Patient removes oxygen, SpO2 desaturates in to the mid-70's within 20 seconds. This RN in the room to put vapotherm back in place. Settings increased to 40L and 90% FiO2. Patient remains in the low 90's. FiO2 increased to 99%. Patient SpO2 rises to upper 90's. Vapotherm titrated down to 35L and 75% FiO2. Patient remains agitated, continually removing oxygen and twisting in bed. Fluids infusing at 100 mls/hr. Patient calms down after therapeutic communication. Vital signs taken, assessment complete.
--- NOTE | 2020-04-05 21:14 | NUR ---
Patient laying calmly in bed. Vapotherm in place, settings of 35L and 60% FiO2. SpO2 ranging from 93-95%. RR of 20, breaths are even and unlabored.
--- NOTE | 2020-04-05 22:24 | NUR ---
Patient desaturating while laying in bed, vapotherm settings increased to 40L and 70% FiO2. Patient SpO2 climbs to mid 90's.
--- NOTE | 2020-04-05 22:59 | NUR ---
Patient sleeping in bed, respirations even and unlabored, RR of 26. Vapotherm in place t 40L and 70% FiO2, SpO2 ranging from 94-99%.
--- NOTE | 2020-04-06 00:20 | NUR ---
Patient removed oxygen, saturations quickly dropped into the 60's. This RN into the room, puts vapotherm back on patient. Settings increased to 40L and 100% FiO2. Saturations climb to the upper 90's. Vapotherm titrated back to original settings of 35L and 70% FiO2. Vapotherm tubing secured with opsites applied to patient's cheeks. Assessment complete, coarse crackles and rhonchi noted throughout all lobes. Occassional dry cough noted. LR infusing at 100 mls/hr. Patient repositioned with pillow underneath left side.
--- NOTE | 2020-04-06 03:30 | NUR ---
Patient sleeping in bed, respirations even and unlabored. Vapotherm in place, settings at 35L and 70% FiO2. SpO2 in the upper 90's, RR of 22.
--- NOTE | 2020-04-06 05:30 | NUR ---
Patient sleeping in bed, rouses to voice. Vitals taken, assessment complete. Labs drawn and sent off. Vapotherm in place, settings at 35L and 70% FiO2. Fluids infusing at 100 mls/hr.
--- NOTE | 2020-04-06 07:30 | NUR ---
PATIENT SHIFT REPORT RECIEVED FROM FRONTEND ENGINEER RN. PATIENT RESTING IN BED AT THIS TIME. PATIENT IS A CLOSE 1:1 D/T PULLING OFF OXYGEN TUBING AND PULLING AT IVS. WILL CONTINUE TO CLOSELY MONITOR.
--- NOTE | 2020-04-06 09:30 | NUR ---
PATIENT SHIFT ASSESSMENT COMPLETED. PATIENT RESTING IN BED. PATIENT IS NONVERBAL WITH STAFF, BUT DOES RESPOND "OUCH" WHEN STAFF POKED PATIENT FOR BLOOD SUGAR. PATIENTS EYES OPEN AND REPOSNSIVE TO SOUND. PATIENT LOOKS IN DIRECTION OF STAFF WHEN STAFF ARE TLAKING. PATIENT HAS A STAFF MEMBER SITTING WITH HIM TO PREVENT PATIENT FROM PULLING A VAPOTHERM. PATIENTS RR 28 AND DOES NOT APPEAR TO BE WORKING HARD TO BREATH AT THIS TIME. UNABLE TO LISTEN TO BREATH SOUNDS D/T PAPR. NO EDEMA NOTED. LOPEZ CATHETER PRESENT. WILL CONTINUE TO CLOSELY MONITOR.
--- NOTE | 2020-04-06 11:30 | NUR ---
THIS RN SITTING IN PATIENTS ROOM WITH PATIENT. PATIENT IS RESTING IN BED AT THIS TIME. SERVICE DELIVERY ANALYST OR THIS RN AHS BEEN IN WITH PATIENT ALL DAY TO ENSURE PATIENT DOES NOT PULL OXYGEN TUBING OFF. PATIENT REMAINS ON VAPOTHERM AT 35L AND 70% FIO2. WILL CONTINUE TO CLOSELY MONTIOR.
--- NOTE | 2020-04-06 11:58 | NUR ---
PATIENT ASSESMENT COMPLETED AND REMAINS UNCHANGED AT THIS TIME. PATIENT IS RESTING IN BED. PATIENT ON VAPOTHERM 35L AND 70% FIO2. PATIENTS SPO2 96%. PATIENTS RR 28. SHALLOW RESPIRATIONS NTOED. NO ACCESORY MUSCLE USE NOTED. PATIENT HAS AN OCCASIOANAL COUGH. PATIENT DOES NOT PRODUCE SPUTUM IN MOUTH THOUGH. LOPEZ CATHETER IN PLACE WITH CLEAR YELLOW URINE PRESENT. WILL CONTINUE TO CLOSELY MONITOR.
--- NOTE | 2020-04-06 12:50 | NUR ---
Update from RN. No change in status.
--- NOTE | 2020-04-06 13:00 | NUR ---
THIS RN SAT IN WITH PATIENT FOR THE PAST HOUR. PATIENT FELL ASLEEP. WILL CONTINUE TO CLOSELY MONITOR.
--- NOTE | 2020-04-06 13:09 | NUR ---
I sat with pt. most of the day. moved around alot and would grab his nc and remove it. Gave a bed bath, changed his gown, changed linens, picked up his room, emptied garbages and washed the floor.
--- NOTE | 2020-04-06 13:30 | NUR ---
PATIENT AWAKE AND PULLED OFF OXYGEN THIS RN AND MANAGER PHILOSOPHY IN THE ROOM TO REPOSITION PATIENT TO SIDE WITH PILLOW SUPPORT. PATIENT TOLERATED WELL. NEW DRAW SHEET PLACED. NO OTHER NEEDS AT THIS TIME. WILL CONTINUE TO CLOSELY MONITOR.
--- NOTE | 2020-04-06 13:43 | NUR ---
PT STILL UNDER PRECAUTIONS, WILL FOLLOW
--- NOTE | 2020-04-06 14:00 | NUR ---
PATIENT DESATTED TO THE LOW 80'S WITH CANNULA WHILE PATIENT WAS COUGHING. SUCTIONED PATIENT. PATIENT IS DIFFICULT TO SUCTION D/T THE FACT THAT THE PATIENT HAS A LARGE TONGUE. THIS RN IN TO HELP AGILE SCRUM MASTER REPOSITION PATIENT AND SUCTION. PATIENT SPO2 BACK TO UPPER 90'S WITH THIS. PATIENT NOW RESTING COMFORTABLY ON HIS RIGHT SIDE AT THIS TIME. WILL CONTINUE TO CLOSELY MONITOR.
--- NOTE | 2020-04-06 16:15 | NUR ---
PATIENT AWAKE AND PULLING AT HIS OXYGEN TUBE. FILM FLAT INSPECTOR IN TO ASSIST PATIENT AND SIT WITH HIM SO HE DOESNT PULL AT HIS TUBES. NO OTHER NEEDS AT THIS TIME. WILL CONTINUE TO CLOSELY MONITOR.
--- NOTE | 2020-04-06 17:00 | NUR ---
THIS RN IN TO ASSIST BASIC COMBATANT SWIMMER AND REPOSITION PATIENT IN THE BED. PATIENT TOLERATED WELL AND IS RESTING UPRIGHT AT THIS TIME. BASIC COMBATANT SWIMMER IN TO HELP WITH CARES. PATIENT TOELRATING WELL. WILL CONTINUE TO CLSOELY MONITOR.
--- NOTE | 2020-04-06 18:55 | NUR ---
CALLED MD SHAH TO UPDATE THAT PATIENT HAS NO BM RECORDED SINCE ADMIT. PER MD NURSING STAFF TOLD HIM THAT THE PATIENT HAD A BM, BUT IS NOT DOCUMENTED. WILL GIVE DULCOLAX SUPPOSITORY IN THE AM IF NO BM OVERNIGHT. NO OTHER NEEDS AT THIS TIME. LADLE PULLER AT THE BEDSIDE. WILL CONTINUE TO CLOSELY MONITOR.
--- NOTE | 2020-04-06 19:15 | NUR ---
Report received, orders acknowledged. Patient laying in bed with vapotherm in place. Settings at 35L and 75% FiO2. SpO2 in the upper 90's.
--- NOTE | 2020-04-06 21:00 | NUR ---
Patient laying in bed with vapotherm in place. Settings at 35L and 75% FiO2 with an SpO2 of 100%. Vapotherm titrated to 35L and 70% FiO2, SpO2 ranges between 97-100%. Vital signs taken, assessment complete. PM medications given. BG of 126, no insulin required. Tongue dry and fissured, wet sponge provided for patient. Oral care provided. Loose cough noted intermittently. Fluids infusing at 65 mls/hr.
--- NOTE | 2020-04-06 22:46 | NUR ---
Patient laying in bed with vapotherm in place. Settings at 35L and 70% FiO2 with an SpO2 of 96%.
--- NOTE | 2020-04-07 00:45 | NUR ---
Patient laying in bed, restless. Vital signs taken, assessment complete. Vapotherm in place with settings at 35L and 70% FiO2. Oxygen saturations ranging from 91-94%. Vapotherm settings adjuted to 35L and 901% FiO2, with SpO2 rising to 96-97%. Fluids infusing at 65 mls/hr. Metcalf catheter emptied, 130 mls of yellow urine noted. Occassional loose cough observed.
--- NOTE | 2020-04-07 01:19 | NUR ---
Patient sleeping in bed, respirations even and unlabored. Vapotherm in place with settings aat 35L and 70% FiO2. SpO2 in the low to mid-90's. New bag of LR hung and infusing at 65 mls/hr.
--- NOTE | 2020-04-07 03:45 | NUR ---
Patient desaturated to 83% while on vapotherm at 35L and 70% FiO2, while laying on left side. Vapotherm increased to 40L and 99% FiO2, SpO2 climbs to 99%. Patient repositioned onto right side. Vital signs taken, assessment complete. LR infusing at 65 mls/hr.
--- NOTE | 2020-04-07 06:00 | NUR ---
Patient sleeping in bed with vapotherm in place, settings at 35L and 70% FiO2, SpO2 in the mid-90's. Blood drawn and sent off to lab. Suppository given. Patient repositioned with pillows onto left side.
--- NOTE | 2020-04-07 07:30 | NUR ---
PATIENT SHIFT REPORT RECIEVED FROM FLEXOGRAPHIC PRINTING PRESS OPERATOR RN. PATIENT RESTING COMFORTABLY IN BED AT THIS TIME. PATIENT REMAINS ON VAPOTHERM AT 35L AND 70% FIO2. PATIENTS SPO2 96%. WILL CONTINUE TO CLOSELY MONITOR.
--- NOTE | 2020-04-07 08:29 | NUR ---
PATIENT RESTING WITH EYES CLOSED, MOVING AROUND NOW AND THEN, LICKING LIPS. THIS MANAGER PHOTO CONTINUES TO MONITOR.
--- NOTE | 2020-04-07 09:15 | NUR ---
PATIENT SHIFT ASSESSMENT COMPLETED. PATIENT AWAKE AND OPENING EYES AND STATES "OKAY" WHEN STAFF EDUCATE AND TURN PATIENT. PATIENT IS TOLERABLE OF CARE. PATIENT BEDBATH GIVEN AND LINEN CHANGED. PATIENT REPOSITIONED TO HIS RIGHT SIDE AFTER AM CARES. CONSUMER PRODUCT ADVISOR AND THIS RN IN DOING CARES. PATIENT RECIEVED ORAL CARE AND TOLERATED WELL. UNABLE TO LISTEN TO BREATH SOUNDS, HEART TONES, OR BOWEL TONES. PATIENT DOES NOT APPEAR TO HAVE GRIMACING WHEN PALPATING ABD. PATIENT ON VAPOTHERM AT 35L AND 70% FIO2. WILL TRY AND WEAN FIO2 PATIENT TOLERATES. RR 32 AT THIS TIME AND REMAINS SHALLOW. OCCASIONAL COUGH NOTED. PATIENT RESTING ON HIS RIGHT SIDE AT THIS TIME. MEDICATIONS GIVEN. CONSUMER PRODUCT ADVISOR REMAINS AT THE BEDSIDE. WILL CONTINUE TO CLOSELY MONITOR.
--- NOTE | 2020-04-07 09:39 | NUR ---
THIS EDITORIAL PROJECT MANAGER AND RN IN ROOM FOR BED BATH AND LINEN CHANGE. PATIENT TOLERATED WELL, CRYING OUT A BIT, MOST LIKELY DUE TO FEAR-NOT DISTRESS/PAIN. MOUTH SWABBED, IN TO SEE PATIENT. PATIENT NOW RESTING QUIETLY, EYES CLOSED, WARM BLANKET PROVIDED. LOPEZ EMPTIED. VAPOTHERM IN PLACE. THIS EDITORIAL PROJECT MANAGER AT BEDSIDE FOR AWHILE LONGER
--- NOTE | 2020-04-07 10:48 | NUR ---
UNABLE TO VISIT PT DUE TO PRECAUTIONS. PT NON VERBAL. WILL CONTINUE TO FOLLOW
--- NOTE | 2020-04-07 11:15 | NUR ---
PATIENT RESTING IN BED AT THIS TIME. PATIENT REMAINS ON VAPOTHERM 35L AND 65%. THIS RN WILL BE IN TO REPOSITION PATIENT AND CHECK ATTENDS. WILL CONTINEU TO CLOSELY MONITOR.
--- NOTE | 2020-04-07 12:24 | NUR ---
REPOSITIONED PATIENT. SWABBED MOUTH AND APPLIED LIP BALM. VAPOTHERM IN PLACE
--- NOTE | 2020-04-07 12:30 | NUR ---
THIS RN AND LIGHTING ADVISER IN WITH PATIENT FOR APPROX AN HOUR. PATIENT CARES COMPELTED AND REPOSITIONED PATIENT FOR COMFORT. ASSESSMETN COMPELTED AND REMAINS UNCHANGED AT THIS TIME. PATIENT ON VAPOTHEM AT 40L AND 55% FIO2. PER RESPIRATORY THERAPY THIS AM THEY RECOMMENED FIRST BUMP PATIENT UP TO 40L AND THEN CONTINUE TO DECREASE FIO2 TOLERABLE. NO OTHER NEEDS AT THIS TIME. WILL CONTINUE TO CLOSELY MONITOR.
--- NOTE | 2020-04-07 14:42 | NUR ---
PATIENT RESTIN IN BED, EYES CLOSED AND VAPOTHERM IN PLACE.
--- NOTE | 2020-04-07 14:50 | NUR ---
PATIENT WAKING UP MORE. STAFF IN TO REPOSITION PATIENT AND CHECK FOR BM. NO BM PRESENT. PATIENT REPOSITIONED WITH PILLOW SUPPORT TO HIS RIGHT SIDE. PATIENT REMAINS ON VAPOTHERM AT 40L AND 55% FIO2. BOAT HAND SITTING WITH PATIENT AT THE BEDSIDE. WILL CONTINUE TO CLOSELY MONITOR.
--- NOTE | 2020-04-07 15:22 | NUR ---
2pa with ENRIQUE Loaiza to repostition patient. Brief is dry, alejandro emptied. Patient awake and a little restless, mouth swabbed. this aeronautics teacher sitting at bedside.
--- NOTE | 2020-04-07 15:30 | NUR ---
INFORMATION ASSISTANT LEFT ROOM AT THIS TIME. PATIENT IS RESTING AND NOT [ULLING AT TUBES/CORDS. WILL CONTINUE TO CLOSELY MONITOR. BOTH INFORMATION ASSISTANT AND THIS RN WERE IN TO REPOSITION AND CHECK PATIENT PRIOR TO THIS. PATIENT TOELRATED WELL.
--- NOTE | 2020-04-07 16:21 | NUR ---
NO CHANGES FROM DISCHARGE STANDPOINT TODAY. WILL CONTINUE TO FOLLOW.
--- NOTE | 2020-04-07 16:45 | NUR ---
THIS RN IN TO DO MEDICATIONS AND REPOSITION PATIENT. PATIENT RESTING IN BED AND TOELRATED POSITION CHANGE WELL. LOPEZ EMPTIED. PATIENT AWAKE AND MOVING HIS ARMS AROUND. WILL CONTINEU TO CLOSELY MONITOR.
--- NOTE | 2020-04-07 18:11 | NUR ---
PATIENT ON VAPOTHERM 40L AND 55% FIO2. SPO2 94%. WILL CONTINUE TO WEAN TOLERABLE.
--- NOTE | 2020-04-07 19:15 | NUR ---
Report received, orders acknowledged. Patient laying in bed watching tv. Vapotherm in place, settings at 40L and 55% FiO2.
--- NOTE | 2020-04-07 21:00 | NUR ---
Patient laying in bed watching tv. Vital signs taken, assessment complete. PM medications given. Vapotherm in place with settings at 40L and 55% FiO2. Saturations remain in the mid-90's. Oral care provided.
--- NOTE | 2020-04-07 22:52 | NUR ---
Patient laying in bed watching tv. Fluids infusing at 55 mls/hr. Vapotherm in place with settings at 40L and 55% FiO2, SpO2 ranging from 94-99%. RR in the upper 20's, breathing is even and unlabored.
--- NOTE | 2020-04-08 00:10 | NUR ---
Patient laying in bed watching tv. Vitals taken, assessment complete. Vapotherm in place, settings at 40L and 55% FiO2. Soft BM produced, patient cleaned with new attends in place. New gown provided. Pillows placed underneath hips, as well as ankles. Warm blanket provided. Fluids infusing at 55 mls/hr. Metcalf catheter emptied.
--- NOTE | 2020-04-08 00:57 | NUR ---
Patient sleeping in bed, respirations even and unlabored. Vapotherm in place with settings of 40L and 55% FiO2. SpO2 ranging from 93-95%. Fluids infusing at 55 mls/hr.
--- NOTE | 2020-04-08 02:21 | NUR ---
Patient sleeping in bed, respirations even and unlabored. Vapotherm in place, settings remain at 40L and 55% FiO2. SpO2 of 92%, RR of 24.
--- NOTE | 2020-04-08 03:45 | NUR ---
Patient laying in bed, awake. Vapotherm in place, settings at 40L and 55% FiO2. SpO2 in the mid-90's. Fluids infusing at 55 mls/hr.
--- NOTE | 2020-04-08 05:00 | NUR ---
Patient laying in bed, awake. Vapotherm in place, settings at 40L and 55% FiO2. SpO2 ranging from 93-98%. Vital signs taken, assessment complete. Blood drawn and sent to lab. Metcalf emptied of 225 mls of yellow urine. Fluids infusing at 55 mls/hr.
--- NOTE | 2020-04-08 06:46 | NUR ---
Patient sleeping in bed, respirations even and unlabored. Vapotherm in place, settings at 40L and 55% FiO2. SpO2 ranging from 93-95%. Fluids infusing at 55 mls/hr.
--- NOTE | 2020-04-08 07:30 | NUR ---
REPORT RECIEVED. PATIENT IS RESTFUL IN BED. NO DISTRESS NOTED. REMAINS ON VAPOTHERM AT 40 LITER 55 % FIO2. LOPEZ CATH PATENT.
--- NOTE | 2020-04-08 08:00 | NUR ---
ASSESSMENT DONE. OOB TO CHAIR WITH TOTAL ASSIST. YELLING OUT WHEN MOVED. AM CARES GIVEN, ORAL CARE GIVEN. MOUTH IS VERY DRY. BED LINENS CHANGED.
--- NOTE | 2020-04-08 10:07 | NUR ---
REMAINS IN CHAIR. DR. SHAH HERE TO SEE PATIENT. ACCUCECK A 0800 THIS AM 187, HUMALOG INSULIN 3 UNITS GIVEN AT THAT TIME.
--- NOTE | 2020-04-08 11:40 | NUR ---
BACK TO BED WITH TOTAL ASSIST. IS VERY RESISTANT TO MOVE. ASSESSMENT DONE. ATTEMPTED TWICE TO START ANOTHER IV SITE, UNSUCCESSFUL. GAVE PATIENT A COUPLE OF SIPS OF WATER. TOLERATED FAIR. DOES HAVE OCC COUGH AFTER SWALLOWING. ACCUCHECK-168. INSULIN HELD AT THIS TIME.
--- NOTE | 2020-04-08 12:15 | NUR ---
RT HERE, WEANING O2 ON VAPOTHERM, THEN HIGH FLOW O2 APPLIED AT 15 L. WILL TITRATE PRN.
--- NOTE | 2020-04-08 13:00 | NUR ---
HIGH FLOW O2 DECREASED TO 9 LITERS. IVF CONTINUE TO INFUSE. IS VERY RESTLESS AT TIMES.
--- NOTE | 2020-04-08 15:01 | NUR ---
SLEEPING AT THIS TIME.
--- NOTE | 2020-04-08 17:52 | NUR ---
repositioned. IS VERY DIFFICULT TO MOVE. SIPS OF WATER AND THICKENED CLEAR ENSURE GIVEN. WILL COUGH OCC WHEN THAKING SIPS. TOOK APPOX 30 ML VIA TEASPOON. HAD SMALL MUCOID LIKE STOOL. ATTENDS CHANGED. LOPEZ REMAINS PATIENT.
--- NOTE | 2020-04-08 19:18 | NUR ---
DR. SHAH UPDATED ON I/O. IS AWARE OF VERY POOR PO INTAKE. NO FUTHER ORDERS AT THIS TIME.REPORT TO NEXT SHIFT.
--- NOTE | 2020-04-08 19:30 | NUR ---
SHIFT REPORT RECEIVED. PATIENT DESAT TO 80'S DUE TO NC BECOMING DISLODGED. RN ENTERED ROOM. PATIENT TOOK SEVERAL MINS TO RECOVER TO O2 SAT >90% WITH 10L HIGH FLOW NC IN PLACE.
--- NOTE | 2020-04-08 22:02 | NUR ---
EVENING MEDS GIVEN. PATIENT DID NOT REQUIRE INSULIN COVERAGE. VS STABLE. ORAL CARE PROVIDED TO PATIENT. TURNED PATIENT TO RIGHT SIDE. 9L HIGH FLOW O2 IN PLACE, PATIENT TOLERATING WELL WITH O2 SATS 90-95%. LOPEZ CARE DONE. IV FLUIDS PER ORDER, SITE WNL. REENFORCED DRESSING WITH COBAN. DIMMED LIGHTS TO PROMOTE SLEEP.
--- NOTE | 2020-04-08 23:53 | NUR ---
PATIENT HAS TAKEN NC OUT MULTIPLE TIMES AND DESATS QUICKLY TO THE 70'S. WITH NC REPLACED IT TAKES MORE THAN 5 MINS FOR PATIENT TO RECOVER ABOVE 90% O2 SAT. PATIENT SWITCHED TO VAPOTHERM AT 40L 55% Fi02 WITH ASSIST OF RT. ATTEMPTS TO KEEP NC IN PLACE FAILED. TOLL TRANSMISSION WORKER IN ROOM 1:1 TO KEEP PATIENT FROM REMOVING NC. AFTER MORE THAN 20MINS THE PATIENT CONTINUED TO HAVE O2 SATS IN 86-89% RANGE. TITRATED TO 40l 60% Fi02.
--- NOTE | 2020-04-09 02:00 | NUR ---
PATIENT CONTINUES TO BE RESTLESS AND NOT SLEEP. TANK INSULATOR RUBBER 1:1 TO ENSURE NC STAYS IN PLACE. PATIENT MAINTAINING O2 SATS 90-94% ON VAPOTHERM 40L 60% Fi02.
--- NOTE | 2020-04-09 04:30 | NUR ---
PATIENT CONTINUES TO BE RESTLESS. FLACC SCORE 6/10. PRN TYLENOL PROVIDED. REPOSITIONED FOR COMFORT. PERSONAL ITEMS PROVIDED, DEANDRA CEE. PATIENT CONTINUES TO WANT TO PULL ON NC. TELEGRAPHIC SERVICE DISPATCHER 1:1 TO DISTRACT PATIENT.
--- NOTE | 2020-04-09 06:46 | NUR ---
PATIENT SLEEPING SOUNDLY. VS STABLE. O2 SAT 93% ON VAPOTHERM 40L 60% Fi02.
--- NOTE | 2020-04-09 08:00 | NUR ---
SLEEPING, NOT AWAKENED AT THIS TIME. NO DISTRESS NOTED.
--- NOTE | 2020-04-09 09:30 | NUR ---
AWAKE, ACCUCHEK DONE. SPONGE BATH GIVEN.IS VERY DROWSY, REMAINS ON VAPOTHERM 39 L, FIO2 60. O2 SATS VARY 90-97,. ORAL CARE GIVEN. REPOSITIONED.
--- NOTE | 2020-04-09 12:30 | NUR ---
OOB TO CHAIR, TOTAL LIFT. VAPOTHERM DECREASED TO 30 L AND 55%. PATIENT YELLS OUT WHEN BEING MOVED. ORAL CARE GIVEN, ORAL AIRWAY REMAINS VERY DRY. TOOK FEW SMALL SIPS OF WATER. HAS BEEN VERY SLEEPY ALL DAY. ACCUCHECK 156, 1 UNIT HUMALOG INSULIN GIVEN.
--- NOTE | 2020-04-09 14:39 | NUR ---
O2 sats alarming. Patient leaning to right side of chair, left food hanging off and oxygen in place. This nurse enters room, Nasal canula now out of nares. Replaced O2 canula and repositioned in chair. O2 sats 93% now.
--- NOTE | 2020-04-09 15:00 | NUR ---
BACK TO BED WITH ASSIST OF TWO STAFF.
--- NOTE | 2020-04-09 16:18 | NUR ---
CONSENT FOR MIDLINE. AUDRA LEMUS CONTACTED TO REVIEW RISKS AND COMPLICATIONS OF MIDLINE CATHETER PLACEMENT. AUDRA STATED THAT HE WOULD CONSULT WITH OTHER PEOPLE IN CHARGE OF MEDICAL PERMISSION AND CALL BACK WITH A YES OR NO ON CONSENT.
--- NOTE | 2020-04-09 17:00 | NUR ---
Lilian BETANCOURT RN HERE TO PLACE MIDLINE. ACCUCHECK-126. NO INSULIN GIVEN. MIDLINE PLACED W/O PROBLEMS. PATIENT IS RESTLESS. REMDESIVIR HUNG TO RIGHT INNER DELTOID MIDLINE.
--- NOTE | 2020-04-09 18:59 | NUR ---
REPORT TO NEXT SHIFT. PATIENT REMAINS ON VAPOTHERM 30L, FIO2-55. NO FUTHER CHANGES.
--- NOTE | 2020-04-09 21:02 | NUR ---
PATIENT CALLING OUT. PULLING AT CARDIAC LEADS AND GOWN. PATIENT DIFFICULT TO CONSOLE. PRN TYLNEOL PROVIDED, FLACC SCORE 7/10. PATIENT REPOSITIONS AND ORAL CARE PROVIDED. STAFF AT BEDSIDE FOR SEVERAL MINS TO CALM PATIENT. EVENING MEDS PROVIDED. LOPEZ CARE DONE. MIDLINE FLUSHED WELL WITH 20 ML NS. IVF PER ORDER.
--- NOTE | 2020-04-09 21:03 | NUR ---
Asst RN blood pressure reading, turning pt to left side, asst with suposstory and attends changed, RN replaced cardiac lead, no further asst by me needed at this time
--- NOTE | 2020-04-09 22:45 | NUR ---
PATIENT REMOVING NC AND APPEARS RESTLESS. STONE RUBBER INTO ROOM TO REPLACE NC AND SIT WITH PATIENT.
--- NOTE | 2020-04-10 00:15 | NUR ---
PATIENT MORE RESTFUL NOW. HAS BEEN 1:1 WITH FIELD MARKETING REPRESENTATIVE UNTIL THIS TIME. VS STABLE.
--- NOTE | 2020-04-10 01:46 | NUR ---
PT DESATING ON MONITOR, 1:1 WITH PT TO ASST PT IN KEEPING NC IN PLACE
--- NOTE | 2020-04-10 02:00 | NUR ---
PT SEEMS TO BE RESTING, O2 IS GOOD, IN THE 90s, LEFT THE RM TO DOFF PPE, PT RESUMES BEING FIDGITY, CONTINUED MONITORING OF PT AND SATS FROM THE NURSES STATION
--- NOTE | 2020-04-10 02:18 | NUR ---
HAD TO ENTER PT RM, PT HAD LOW O2, PT HAD NC BK IN PLACE BY THE TIME I CAME IN, O2 STABLE IN THE MID 90s, PT SEEMS TO BE RESTING, HR DIPPING TO 48-51 THEN CLIMING BK UP, WILL 1:1 MONITOR PT FROM IN THE RM
--- NOTE | 2020-04-10 03:42 | NUR ---
PATIENT 02 DESATED IN 80'S. NASAL CANULA REPLACED AND O2 SAT RETURNED TO THE 90'S. IV FLUID BAG REPLACED. PATIENT LEFT RESTING IN BED.
--- NOTE | 2020-04-10 04:36 | NUR ---
HAVE BEEN IN PT RM FOR AWHILE, PT CONTINUES TO PULL NC OFF, SIT WITH PT UNTIL PT STARTED TO FALL ASLEEP, SATS ARE GOOD, QUIETLY LEFT RM SO NOT TO WAKE PT, PT STARTING TO BECOME FIDGITY I DOFFED PPE, CONTINUING TO MONITOR
--- NOTE | 2020-04-10 06:10 | NUR ---
RN WITH LAB DRAWS, EMPTIED LOPEZ CATH, PROVIDED PT MOUTHSWABS AND CHAPSTICK, BOOSTED PT UP IN BED, DEANDRA PROVIDED, VITALS TO BE RECORDED
--- NOTE | 2020-04-10 06:12 | NUR ---
MORNING LABS DRAWN FROM MIDLINE. LINE DRAWS BLOOD AND FLUSHES EASILY. IV FLUIDS PER ORDER. LOPEZ EMPTIED. PATIENT REPOSITIONED AND ORAL CARE PROVIDED. VS STABLE. PATIENT TOLERATING NC AT THIS TIME, VAPOTHERM 30L 55%.
--- NOTE | 2020-04-10 07:30 | NUR ---
RESTFUL AT THIS TIME. VAPOTHERM SETTING, FIO2-55, 30 LITERS. LOPEZ AND IV PATENT.
--- NOTE | 2020-04-10 08:30 | NUR ---
UP TO CHAIR WITH TOTAL ASSIST. YELLS OUT WHEN MOVED.
--- NOTE | 2020-04-10 08:45 | NUR ---
IVF INCREASED TO 75 ML/HR.
--- NOTE | 2020-04-10 09:00 | NUR ---
AFTER PATIENT TOOKK FEW SIPS OF WATER, DESAT TO 79. FIO2 INCREASED TO 100% TIL SAT UP TO ABOVE 90 THEN FIO2 DECREASED TO 55%.
--- NOTE | 2020-04-10 10:00 | NUR ---
VAPOTHERM SETTING NOW 20L, FIO2-55. PATIENT IS DROWSY.
--- NOTE | 2020-04-10 11:00 | NUR ---
IS ASLEEP IN CHAIR. NO DITRESS NOTED.
--- NOTE | 2020-04-10 12:00 | NUR ---
ASSESSMENT UNCHANGED. REMAINS IN CHAIR. ACCUCHECK 136, NO INSULIN REQUIRED.
--- NOTE | 2020-04-10 14:00 | NUR ---
RESTLESS, BACK TO BED WITH TOTAL ASSIST. POSITIONED TO RIGHT SIDE. VAPOTHERM TO OFF, HIGH FLOW O2 APPLIED AT 8 LITERS. WILL CONTINUE TO MONITOR O2 SATS. IVF PATENT, FLOW CATH PATENT.
--- NOTE | 2020-04-10 14:33 | NUR ---
CHECKING ON PT, FOUND HE IS ASLEEP AND ON PRECAUTIONS STILL. WILL FOLLOW NEEDED
--- NOTE | 2020-04-10 17:00 | NUR ---
ASSESSMENT DONE, REMDESIVIR HUNG PER ORDERS. ACCUCHECK 156. 1 UNITS HUMALOG INSULIN GIVEN. PATIENT HAS BEEN PULLING O2 OUT OF NOSE FREQUENTLY. NC HAS BEEN TAPED MANY DIFFERENT WAYS. HAS BEEN MORE RESTLESS THIS AFTERNOON.
--- NOTE | 2020-04-10 17:30 | NUR ---
RR VARIES DEPENDING ON ACITITY.OVERALL RR HAS BEEN HIGHER SINCE PLACED HIGH FLOW O2.
--- NOTE | 2020-04-10 18:33 | NUR ---
CONTINUES WITH OCC LOOSE, MOIST NON-PRODUCTIVE COUGH.
--- NOTE | 2020-04-10 20:30 | NUR ---
RIGHT LOBES HAVE EXPIRATORY WHEEZING PRESENT, YU IS COARSE AND LLL IS DIMINISHED. ABD IS MILDLY DISTENDED WITH HYPOACTIVE BOWEL TONES. NO PERIPH. EDEMA NOTED. LOPEZ CARE, ORAL CARE DONE. PT WAS TURNED ALSO. URINE OUTPUT IS STILL LOW. V/S ARE WDL. PT SO FAR HAS REMAINED ON 8L O2 NC HIGH FLOW CANNULA.
--- NOTE | 2020-04-10 22:26 | NUR ---
MIDLINE ON TERRENCE WAS HEP-LOCKED SINCE PT KEEPS BENDING HIS ARM. NO NEW CONCERNS WERE NOTED AT THIS TIME.
--- NOTE | 2020-04-11 | NUR ---
V/S STILL WDL, URINE OUTPUT OVERALL UNCHANGED, PT BRIEF WAS CHANGED AND PT WAS TURNED AGAIN. UPPER LOBES HAVE EXPIRATORY WHEEZING PRESENT, LOWER LOBES ARE COARSE. MORE ORAL CARE WAS DONE. NO NEW CONCERNS NOTED AT THIS TIME.
--- NOTE | 2020-04-11 02:23 | NUR ---
PT IS SLEEPING AT THIS TIME. NO NEW CONCERNS NOTED.
--- NOTE | 2020-04-11 04:30 | NUR ---
PT HAS BEEN SLEEPING FOR SOME TIME. ALL LOBES ARE COARSE AT THIS TIME. O2 STILL ON 8L, PT WAS TURNED, ORAL CARE DONE, LABS DRAWN. V/S ARE WDL OVERALL. URINE OUTPUT HAS NOT CHANGED OVERALL SINCE START OF SHIFT. OVERALL NO NEW CONCERNS NOTED.
--- NOTE | 2020-04-11 05:46 | NUR ---
PT AT THIS TIME IS SLEEPING AGAIN. NO NEW CONCERNS NOTED. URINE OUTPUT THIS SHIFT WAS ACTUALLY MUCH BETTER THAN IN PREVIOUS SHIFTS.
--- NOTE | 2020-04-11 08:15 | NUR ---
ASSESSMENT DONE. IS VERY DROWSY. IVF PATENT AT 75 ML/HR. LOPEZ CATH PATENT. ROUTINE MEDICATIONS GIVEN. ORAL CARE GIVEN. REMAINS IN ISOLATION. SPONGE BATH GIVEN. HIGH FLOW O2 AT 8 LITERS. WILL TITRATE ACCORDINGLY.
--- NOTE | 2020-04-11 09:24 | NUR ---
RESTING, NO DISTRESS NOTED. POSITIONED TO RIGHT SIDE EARLIER.
--- NOTE | 2020-04-11 11:30 | NUR ---
AM CARES GIVEN, THEN TO CHAIR WITH TOTAL ASSIST. YELLS OUT WHEN MOVED.
--- NOTE | 2020-04-11 12:00 | NUR ---
ACCUCHECK 111. NO INSULIN GIVEN. ASSESSMENT UNCHANGED.
--- NOTE | 2020-04-11 13:00 | NUR ---
IS AWAKE BUT RESTFUL IN CHAIR. NO INCREASED RESP DISTRESS NOTED. O2 DECREASED TO 7 LITERS VIA HIGH FLOW NC.
--- NOTE | 2020-04-11 14:00 | NUR ---
Update from RN. Patient is up in chair. No change at this time.
--- NOTE | 2020-04-11 14:18 | NUR ---
PRECAUTIONS IN PLACE, WILL FOLLOW
--- NOTE | 2020-04-11 14:30 | NUR ---
TOOK PUDDING APPROX HALF CUP. I GAVE PATIENT A SMALL BITE OF PUDDING FOLLOWED BY A SWAB OF THICKENED ICE WATER. NO COUGHING NOTED WITH SWALLOWING. IS MORE VERBAL AT THIS TIME.
--- NOTE | 2020-04-11 14:55 | NUR ---
BACK TO BED WITH TOTAL ASSIST. POSITIONED TO RIGHT SIDE. O2 DECREASED TO 6 L HIGH FLOW NC.
--- NOTE | 2020-04-11 17:00 | NUR ---
ASSESSMENT DONE. NO CHANGES. O2 DECREASED TO 5 L HIGH FLOW NC. HAS HAD A RESTFUL DAY. INCONT OF LARGE LOOSE FOUL SMELLING LIGHT BROWN STOOL. MOANS WHEN MOVED OR TURNED. ACCUCHECK 110.
--- NOTE | 2020-04-11 17:06 | NUR ---
CALLED ENRIQUE DIAZ TO DISCUSS PT STATUS RE: ABILITY TO PARTICIPATE IN SWALLOW EVAL. PT HAS PROGRESSED FROM HIGH-FLOW O2 TO 8L NC THIS AM THEN 5L NC THIS AFTERNOON WHICH IS BEING WELL-TOLERATED. ENRIQUE DIAZ REPORTS INCREASING LEVELS OF ALERTNESS TODAY. ENRIQUE DIAZ PROVIDED CONTACT NUMBER FOR CAREGIVER AT [facility] WHERE HE STAYS; I TOLD HER I WOULD GET IN CONTACT WITH FACILITY TO GET INFOR RE: BASELINE BEFORE EVALUATING PT. I CALLED AND SPOKE WITH LAVON WHO WAS ABLE TO PROVIDE INFORMATION REGARDING PTS BASELINE SWALLOWING ABILITIES. Lavon REPORTS THAT HE IS GENERALLY ON A CHOPPED DIET WITH THIN LIQUIDS, THOUGH HE DOES BETTER ON THICKENED LIQUIDS AND SOME FOODS REQUIRE MASHING. SHE SAID THAT THEY DO NOT FEED HIM BREAD PRODUCTS SUCH TORTILLAS, BREAD, UNCRUSTABLES, OR FOODS THAT REQUIRE SIGNIFICANT CHEWING. FOR FOODS SUCH TONGAN FRIES ARE MASHED; HE TOLERATES THIS VERY WELL. AT BASELINE IS A VERY SLOW EATER. THEY SAID HE USED A SPECIAL CUP THAT IS BIGGER AND EASIER FOR HIM TO HOLD. HE CAN GENERALLY SELF FEED BUT OCCASIONALLY REQUIRES HELP. SHE SAID THEY OFTEN GIVE HIM GLUCERNA HUNGER SHAKES WHICH HE TOLERATES WELL W/O SYMPTOMS OF ASPIRATION. CALLED [facility] TO RELAY INFO TO JOE BUT PHONE WAS NOT ANSWERED.
--- NOTE | 2020-04-11 19:21 | NUR ---
NO CHANGES. REPORT TO NEXT SHIFT.
--- NOTE | 2020-04-11 19:30 | NUR ---
PT AT THIS TIME IS RESTING IN BED. NO NEW CONCERNS NOTED,.
--- NOTE | 2020-04-11 21:00 | NUR ---
ALL LOBES HAVE WHEEZING PRESENT AT THIS TIME, PT ON 5L O2 HIGH FLOW NC. ABD IS NOT DISTENDED ANYMORE SINCE PT HAD BM TODAY. URINE OUTPUT IS MUCH BETTER SO FAR. PT IS ALSO MORE ACTIVE IN BED AT THIS TIME. V/S ARE WDL OVERALL ECXEPT RR IS STILL IN THE 20'S. WILL CONTINUE TO MONITOR.
--- NOTE | 2020-04-11 23:15 | NUR ---
LOBES ARE ALL DIMINISHED. NO WHEEZING NOTED. PT NOW AGAIN IS A 1:1 SINCE HE IS TRYING TO PULL OFF HIS NC AGAIN. WILL CONTINUE TO MONITOR THAT . URINE OUTPUT STILL GOOD.
--- NOTE | 2020-04-12 01:00 | NUR ---
PT STARTED TO DESAT WHILE A WAS ADMITTING A PT. RT IN ROOM, PT BACK ON VAPOTHERM MAXED OUT ON O2 AN FIO2.
--- NOTE | 2020-04-12 01:44 | NUR ---
WHEN X-RAY IS READ WE WILL CALL MD ALVARADO. IV FLUIDS ON STANDBY FOR NOW. PT BREATHING AT THIS TIME IS NOT WORSE THAN IT HAS BEEN SINCE START OF SHIFT.
--- NOTE | 2020-04-12 01:57 | NUR ---
STILL WAITING ON X-RAY REPORT. PT AT THIS TIME IS STILL ON VAPO THERM 40L O2 AND 755 FOP2. O2 SATS UPPER 70'S WITH GOOD WAVE FORM.
--- NOTE | 2020-04-12 02:10 | NUR ---
PT NOW ON BI-PAP, 12/11.
--- NOTE | 2020-04-12 02:39 | NUR ---
JENNY WAS CALLED WITH CHEST X-RAY REPORT. NEW ORDERS WERE PUT IN. PT AT THIS TIME IS RESTING AND O2 SATS ARE >90% AT THIS TIME. BI -PAP SETTINGS ARE 12/5 80% FIO2.
--- NOTE | 2020-04-12 04:59 | NUR ---
PT NOW IS DESATING INTO THE LOW 80'S AGAIN ON BI-PAP. FIO2 NOW AGAIN AT 80%. ALL LOBES ARE DIMINISHED. NOT MUCH AIR MOVEMENT IS HEARD. PT AFEBRILE, URINE OUTPUT IS VERY GOOD WITH REGRADS TO LASIX. BP'S ARE LOW BUT MAP IS OK. WILL CONTINUE TO MONITOR.
--- NOTE | 2020-04-12 06:39 | NUR ---
PT AT THIS TIME HAS O2 SATS >90% ON BI-PAP 12/5 80% FIO2. PT HOWEVER DOES KEEP HAVING EPISODES WHERE HE DESATS. PT ONLY TOLERATED THE RT VEST FOR 3 MINUTES BEFORE DESATING TO 86%. WE HAVE NOT ATTEMPTED IT SINCE.
--- NOTE | 2020-04-12 08:21 | NUR ---
BIPAP FIO2 DECREASED FROM 80 TO 70% LAURENCE TITRATION WELL.
--- NOTE | 2020-04-12 08:36 | NUR ---
TITRATED FIO2 DOWN TO 65% VIA BIPAP, PER RT REQUEST TO ATTAIN GOAL FIO2 OF 60%.
--- NOTE | 2020-04-12 10:10 | NUR ---
lab sample sent. pt butch lab draw well, one person assist to keep arm still. pt does not cry out with lab draw.
--- NOTE | 2020-04-12 11:49 | NUR ---
PT REMAINS OBTUNDED/DROWSY. PT DOES NOT COMPLAIN DURING BLOOD GLUCOSE TEST OR OTHER THERAPIES THAT CAUSE SOME STIMULATION. VITALS CONTINUE TO BE SOFT BP, O2 SATS 90-97% WITH BIPAP ON, NO FEVERS, HR 70'S-80'S. REPOSTIONED PT IN BED FOR COMFORT AND SKIN HEALTH.
--- NOTE | 2020-04-12 13:56 | NUR ---
ENRIQUE PATRICK REMINDED ME THAT PT IS ON PRECAUTIONS. I AM UNABLE TO VISIT. WILL FOLLOW
--- NOTE | 2020-04-12 14:20 | NUR ---
[facility] IS HERE TO TRANSPORT PT TO [facility], FULL REPORT GIVEN, ALL QUESTIONS ANSWERED. ASSISTED [facility] TO TRANSFER PT TO [facility].
--- NOTE | 2020-04-12 14:30 | NUR ---
NATHAN HAS LEFT CCU WITH PT. ALL PT BELONGINGS WENT WITH HIM. PT ADVOCATE AUDRA LEMUS AT [phone] UPDATED.
--- NOTE | 2020-04-12 14:40 | NUR ---
FULL REPORT GIVEN TO ENRIQUE RAM AT [facility], ALL QUESTIONS ANSWERED.
== END 2020-04-12 14:30 | disposition short-term general hospital (02) | DRG 177 ==
LOC: ED 18:39 → CCU 22:04
PROVIDERS: ADMIT Internal Medicine; ATTEND Internal Medicine
PROC: XW033E5 Introduction of Remdesivir Anti-infective into Peripheral Vein, Percutaneous Approach, New Technology Group 5 (ICD-10-PCS; 2020-04-05)
PROC: XW033E5 Introduction of Remdesivir Anti-infective into Peripheral Vein, Percutaneous Approach, New Technology Group 5 (ICD-10-PCS; 2020-04-06)
PROC: XW033E5 Introduction of Remdesivir Anti-infective into Peripheral Vein, Percutaneous Approach, New Technology Group 5 (ICD-10-PCS; 2020-04-07)
PROC: XW033E5 Introduction of Remdesivir Anti-infective into Peripheral Vein, Percutaneous Approach, New Technology Group 5 (ICD-10-PCS; 2020-04-08)
PROC: XW033E5 Introduction of Remdesivir Anti-infective into Peripheral Vein, Percutaneous Approach, New Technology Group 5 (ICD-10-PCS; 2020-04-09)
PROC: 05HB33Z Insertion of Infusion Device into Right Basilic Vein, Percutaneous Approach (ICD-10-PCS; principal; 2020-04-09 17:00)
PROC: XW033E5 Introduction of Remdesivir Anti-infective into Peripheral Vein, Percutaneous Approach, New Technology Group 5 (ICD-10-PCS; 2020-04-10)
PROC: XW033E5 Introduction of Remdesivir Anti-infective into Peripheral Vein, Percutaneous Approach, New Technology Group 5 (ICD-10-PCS; 2020-04-11)
DX: U07.1 COVID-19 (principal); J96.22 Acute and chronic respiratory failure with hypercapnia; J96.21 Acute and chronic respiratory failure with hypoxia; J12.89 Other viral pneumonia; I50.32 Chronic diastolic (congestive) heart failure; Q21.2 Atrioventricular septal defect; Q90.9 Down syndrome, unspecified; H54.7 Unspecified visual loss; E11.9 Type 2 diabetes mellitus without complications; E78.5 Hyperlipidemia, unspecified; I34.0 Nonrheumatic mitral (valve) insufficiency; D56.9 Thalassemia, unspecified; E03.9 Hypothyroidism, unspecified; E55.9 Vitamin D deficiency, unspecified; E79.0 Hyperuricemia without signs of inflammatory arthritis and tophaceous disease; K21.9 Gastro-esophageal reflux disease without esophagitis; Z88.8 Allergy status to other drugs, medicaments and biological substances; Z99.81 Dependence on supplemental oxygen; Z79.899 Other long term (current) drug therapy; Z79.84 Long term (current) use of oral hypoglycemic drugs; Z79.82 Long term (current) use of aspirin
CPT/HCPCS: 36569; 36600; 51702; 51798; 71045; 71260; 80048; 80053; 80076; 82803; 83605; 83615; 83735; 83880; 84484; 85025; 87040; 93005; 93010; 94640; 94660; 94667; 94668; 94799; C9113; C9803; J0456; J0696; J1100; J1650; J1815; J1940; J3480; J7030; J7050; J7060; J7121; Q9967; U0003